=== PATIENT | male | born 1960 | race Caucasian/White ===

== ENCOUNTER 2018-01-03 14:25 | Inpatient (IN) | payer MEDICARE ==
[~2018-01-03] VITALS: Ht 182.9 cm; Wt 91.0 kg
[2018-01-03] VITALS (10 sets, daily range): BP systolic 99–155; BP diastolic 57–91; PULSE 59–89; RESP 11–17; TEMP 95–95.4; O2SAT 96–100
[2018-01-03] MEDS ORDERED: SODIUM CHLORIDE 0.9% FLUSH 10 ML FLUSH IVF PRN (14:45)
--- NOTE | 2018-01-03 14:59 | PD ---
HPI Chief Complaint: Altered Mental Status Time Seen by Provider: 14:45 Travel History International Travel<30 days: No Contact w/Intl Traveler<30days: No Traveled to known affect area: No History of Present Illness HPI 57yo M with PMH of cirrhosis was brought in by EVAC for altered mental status since yesterday. As per [facility]AC, pt's family called and said he has been confused since yesterday. Pt was refusing to come so he was Young Act. Pt is moving all extremities. Pt states his name but says no to everything else. Said he has left shoulder pain but cannot get further history from him. Denies everything. PFSH Past Medical History Medical History: Unable to Obtain Tetanus Vaccination: Unknown Past Surgical History Surgical History: Unable to Obtain Social History Alcohol Use: Yes (unknown ) Tobacco Use: No Substance Use: No (unknown ) Allergies-Medications (Allergen,Severity, Reaction): Coded Allergies: acetaminophen (Verified Allergy, Unknown, rash, 01/03/18) hydrocodone (Verified Allergy, Unknown, rash, 01/03/18) Reported Meds & Prescriptions Reported Meds & Active Scripts Active Active Prescriptions or Reported Medications Unobtainable Review of Systems ROS Limitations: Clinical Condition Physical Exam Narrative GENERAL: 57yo M yelling. SKIN: Jaundice. HEAD: Atraumatic. Normocephalic. EYES: Pupils equal and round. +scleral icterus. ENT: No nasal bleeding or discharge. Mucous membranes pink and moist. NECK: Trachea midline. No JVD. CARDIOVASCULAR: Regular rate and rhythm. No murmur appreciated. RESPIRATORY: No accessory muscle use. Clear to auscultation. Breath sounds equal bilaterally. GASTROINTESTINAL: Abdomen soft, non-tender, nondistended. MUSCULOSKELETAL: No obvious deformities. No clubbing. No cyanosis. No edema. NEUROLOGICAL: AAOx1. Moving extremities but not to command. Unable to do further exam. Data Data Last Documented VS Vital Signs Date Time Temp Pulse Resp B/P (MAP) Pulse Ox O2 Delivery O2 Flow Rate FiO2 01/03/18 16:49 95.4 89 155/91 (112) 01/03/18 14:46 99 Room Air 01/03/18 14:42 14 Orders Orders Restraints Non-Violent ALMA ROSA.Q3H (01/03/18 14:37) Electrocardiogram (01/03/18 14:37) Ammonia (01/03/18 14:37) Complete Blood Count With Diff (01/03/18 14:37) Comprehensive Metabolic Panel (01/03/18 14:37) Creatine Kinase (Cpk) (01/03/18 14:37) Prothrombin Time / Inr (Pt) (01/03/18 14:37) Act Partial Throm Time (Ptt) (01/03/18 14:37) Troponin I (01/03/18 14:37) Thyroid Stimulating Hormone (01/03/18 14:37) Urinalysis - C+S If Indicated (01/03/18 14:37) Lactic Acid Sepsis Protocol (01/03/18 14:37) Blood Culture (01/03/18 14:37) Chest, Single Ap (01/03/18 14:37) Ct Brain W/O Iv Contrast(Rout) (01/03/18 14:37) Blood Glucose (01/03/18 14:37) Ecg Monitoring (01/03/18 14:37) Iv Access Insert/Monitor (01/03/18 14:37) Cath For Specimen (01/03/18 14:37) Oximetry (01/03/18 14:37) Sodium Chlor 0.9% 1000 Ml Inj (Ns 1000 M (01/03/18 14:37) Drug Screen, Random Urine (01/03/18 14:37) Alcohol (Ethanol) (01/03/18 14:37) Tylenol (Acetaminophen) (01/03/18 14:37) Salicylates (Aspirin) (01/03/18 14:37) B-Type Natriuretic Peptide (01/03/18 14:37) Magnesium (Mg) (01/03/18 14:37) Sodium Chloride 0.9% Flush (Ns Flush) (01/03/18 14:45) Shoulder, Limited(2vws) (01/03/18 ) Sodium Chlor 0.9% 1000 Ml Inj (Ns 1000 M (01/03/18 16:30) Ceftriaxone Inj (Rocephin Inj) (01/03/18 17:15) Vancomycin Inj (Vancomycin Inj) (01/03/18 17:15) Ampicillin Inj (Ampicillin Inj) (01/03/18 17:15) Potassium Chlor 20 Meq Premix (Kcl 20 Me (01/03/18 17:30) Propofol 500 Mg/50 Ml Inj (Diprivan 500 (01/03/18 17:45) Ammonia (01/03/18 17:42) Admit Order (Ed Use Only) (01/03/18 18:18) Labs Laboratory Tests Test 01/03/18 15:11 01/03/18 15:45 Prothrombin Time 29.3 SEC Prothromb Time International Ratio 2.9 RATIO Activated Partial Thromboplast Time 61.4 SEC Blood Urea Nitrogen 44 MG/DL Creatinine 2.19 MG/DL Random Glucose 81 MG/DL Total Protein 6.9 GM/DL Albumin 1.8 GM/DL Calcium Level 8.4 MG/DL Magnesium Level 2.1 MG/DL Alkaline Phosphatase 94 U/L Aspartate Amino Transf (AST/SGOT) 122 U/L Alanine Aminotransferase (ALT/SGPT) 119 U/L Total Bilirubin 30.1 MG/DL Sodium Level 132 MEQ/L Potassium Level 2.7 MEQ/L Chloride Level 96 MEQ/L Carbon Dioxide Level 23.5 MEQ/L Anion Gap 13 MEQ/L Estimat Glomerular Filtration Rate 31 ML/MIN Lactic Acid Level 5.0 mmol/L Ammonia LESS THAN 10 MCMOL/L Total Creatine Kinase 139 U/L Troponin I LESS THAN 0.02 NG/ML B-Type Natriuretic Peptide 30 PG/ML Thyroid Stimulating Hormone 3rd Gen 0.530 uIU/ML Salicylates Level LESS THAN 1.7 MG/DL Acetaminophen Level LESS THAN 2.0 MCG/ML Ethyl Alcohol Level LESS THAN 3 MG/DL Urine Color DARK-BROWN Urine Turbidity HAZY Urine pH 6.0 Urine Specific [place] 1.013 Urine Protein NEG mg/dL Urine Glucose (UA) NEG mg/dL Urine Ketones NEG mg/dL Urine Occult Blood NEG Urine Nitrite NEG Urine Bilirubin LARGE Urine Urobilinogen 4.0 MG/DL Urine Leukocyte Esterase NEG Urine Squamous Epithelial Cells <1 /hpf Urine Amorphous Sediment RARE Urine Bacteria OCC /hpf Microscopic Urinalysis Comment CATH-CULT NOT IND Urine Random Creatinine 75.5 MG/DL Urine Random Sodium 9 MEQ/L Urine Opiates Screen NEG Urine Barbiturates Screen NEG Urine Amphetamines Screen NEG Urine Benzodiazepines Screen POS Urine Cocaine Screen NEG Urine Cannabinoids Screen POS MDM Medical Decision Making Medical Screen Exam Complete: Yes Emergency Medical Condition: Yes Interpretation(s) EKG: NSR 69bpm. PVC. Differential Diagnosis Hepatic encephalopathy vs. electrolyte abnormality Narrative Course 57yo M with cirrhosis here with altered mental status. Pt is confused but no signs of trauma and moving all extremities. Labs reviewed, CBC is still pending because it had to be recollected. Hypokalemic at 2.7, replaced with 40mEq KCl. BUN/creatinine elevated at 44/2.19. Does not know baseline. Elevated liver enzymes likely baseline. Troponin negative. Ammonia less than 10. TSH normal. Lactic acid elevated at 5.0, pt given 2 L NS IVF, will give another liter. Pt is hypothermic at 95.4F rectal. Consent for lumbar puncture obtained from brother who is now here. Said patient was recently admitted to [facility] and had elevated ammonia. However, ammonia is negative here, will order repeat ammonia level. Attempted lumbar puncture with procedural sedation but was unsuccessful. Pt cover with antibiotics for meningitis empirically since pt has altered mental status, hypothermic and with elevated lactic acid. CXR negative. CT brain negative. Xray left shoulder showed degenerative changes. No acute abnormality. Discussed with Dr. Suarez and accepted to his service. Critical Care Narrative Aggregate critical care time was 50 minutes. Time to perform other separately billable procedures was not included in the critical care time. My time did not include minutes spent treating any other patients simultaneously or on activities that did not directly contribute to the patient's treatment. The services I provided to this patient were to treat and/or prevent clinically significant deterioration that could result in: cardiovascular collapse or . I provided critical care services requiring my management, as noted below: Chart data review, documentation time, medication orders and management, vital sign assessments/reviewing monitor data, ordering and reviewing lab tests, ordering and interpreting/reviewing x- rays and diagnostic studies, care of the patient and discussion of the patient with the admitting physicians. Procedures Procedure Narrative After the risks and benefits were discussed the following procedure was performed: MODERATE SEDATION: The patient was placed on a laborer orchard and pulse oximetry. An ambu bag and suction was immediately available at bedside. The patient was monitored by the nurse. Oxygen saturation , heart rate and blood pressure were monitored. Procedural sedation was acheived using 160mg of propofol. The patient was observed until awake and alert. Procedural Sedation time in attendance was 25 minutes. Diagnosis Primary Impression: Altered mental status Qualified Codes: R41.82 - Altered mental status, unspecified Admitting Information Admitting Physician Requests: Admit Scripts Unable to Obtain Active Prescriptions or Reported Meds Deysi Edouard DO Jan 03, 2018 14:59
--- NOTE | 2018-01-03 15:20 | RADRPT ---
EXAM DATE/TIME: 01/03/2018 14:55 [facility] COMPARISON: No previous studies available for comparison. INDICATIONS : Syncope. MEDICAL HISTORY : none known SURGICAL HISTORY : none known ENCOUNTER: Initial ACUITY: 1 day PAIN SCORE: 10/10 LOCATION: Bilateral chest FINDINGS: A single view of the chest demonstrates the lungs to be symmetrically aerated without evidence of mas s, infiltrate or effusion. The cardiomediastinal contours are unremarkable. Osseous structures are intact. CONCLUSION: No acute disease. Ricky Gómez Jr., MD on January 03, 2018 at 15:18 Board Certified Radiologist. This report was verified electronically.
--- NOTE | 2018-01-03 15:20 | RADRPT ---
EXAM DATE/TIME: 01/03/2018 15:00 [facility] COMPARISON: No previous studies available for comparison. INDICATIONS : Left shoulder pain., no known history MEDICAL HISTORY : none known SURGICAL HISTORY : none known ENCOUNTER: Initial ACUITY: 1 day PAIN SCORE: Non-responsive. LOCATION: Left shoulder FINDINGS: Two view examination of the left shoulder demonstrates no evidence of fracture or dislocation. The g lenohumeral and acromioclavicular joints are maintained. Mild osteophyte lipping involving the inferi or margin of the distal clavicle without significant subacromial space narrowing. Bony mineralizatio n is normal. CONCLUSION: Degenerative changes of the a.c. joint. No acute abnormality. Ricky Gómez Jr., MD on January 03, 2018 at 15:18 Board Certified Radiologist. This report was verified electronically.
--- NOTE | 2018-01-03 15:25 | RADRPT ---
EXAM DATE/TIME: 01/03/2018 15:17 [facility] COMPARISON: No previous studies available for comparison. INDICATIONS : Altered mental status RADIATION DOSE: 56.35 CTDIvol (mGy) MEDICAL HISTORY : None SURGICAL HISTORY : None. ENCOUNTER: Initial ACUITY: 1 day PAIN SCALE: Non-responsive LOCATION: cranial TECHNIQUE: Multiple contiguous axial images were obtained of the head. Using automated exposure control and adj ustment of the mA and/or kV according to patient size, radiation dose was kept as low as reasonably a chievable to obtain optimal diagnostic quality images. DICOM format image data is available electro nically for review and comparison. FINDINGS: CEREBRUM: The ventricles are normal for age. No evidence of midline shift, mass lesion, hemorrhage or acute in farction. No extra-axial fluid collections are seen. POSTERIOR FOSSA: The cerebellum and brainstem are intact. The 4th ventricle is midline. The cerebellopontine angle i s unremarkable. EXTRACRANIAL: The visualized portion of the orbits is intact. SKULL: The calvaria is intact. No evidence of skull fracture. CONCLUSION: Negative for an acute process. Sid Chilel MD FACR on January 03, 2018 at 15:24 Board Certified Radiologist. This report was verified electronically.
[2018-01-03] MEDS: SODIUM CHLOR 0.9% 1000 ML INJ 1,000 ML IV SCH ×3 (15:33→19:43)
[2018-01-03 16:30] LABS: AMORPHOUS SEDIMENT, URINE RARE; BACTERIA, URINE OCC /hpf; BILIRUBIN, URINE LARGE (NEG); BLOOD, URINE NEG (NEG); GLUCOSE,URINE NEG (NEG); KETONE, URINE NEG (NEG); NITRITE,URINE NEG (NEG); SQUAMOUS EPITHELIAL CELL URINE <1 /hpf (0-5); URINE LEUKOCYTE ESTERASE NEG (NEG)
[2018-01-03] MEDS ORDERED: SODIUM CHLOR 0.9% 1000 ML INJ 1,000 ML IV ONE (16:30)
[2018-01-03 16:31] LABS: URINE COLOR DARK-BROWN (YELLW/STRAW)
[2018-01-03 16:39] LABS: INTERNATIONAL NORMALIZED RATIO 2.9 RATIO; PROTHROMBIN TIME - PATIENT 29.3 SEC (9.8-11.6)
[2018-01-03 16:49] LABS: ALBUMIN 1.8 GM/DL (3.4-5.0); ALKALINE PHOSPHATASE 94 U/L (45-117); ALT (GPT) 119 U/L (12-78); AST (GOT) 122 U/L (15-37); BICARBONATE 23.5 MEQ/L (21.0-32.0); BLOOD UREA NITROGEN 44 MG/DL (7-18); CALCIUM 8.4 MG/DL (8.5-10.1); CHLORIDE 96 MEQ/L (98-107); CREATININE 2.19 MG/DL (0.60-1.30); GLOMERULAR FILTRATION RATE 31 ML/MIN (>89); GLUCOSE,RANDOM 81 MG/DL (74-106); MAGNESIUM 2.1 MG/DL (1.5-2.5); SODIUM (NA) 132 MEQ/L (136-145); TOTAL BILIRUBIN ADULT 30.1 MG/DL (0.2-1.0); TROPONIN I LESS THAN 0.02 NG/ML (0.02-0.05)
[2018-01-03] MEDS ORDERED: AMPICILLIN INJ 2,000 MG in SODIUM CHLORIDE 0.9% INJ 100 ML IV ONE (17:15)
[2018-01-03] MEDS ORDERED: cefTRIAXone INJ 2,000 MG in SODIUM CHLORIDE 0.9% INJ 100 ML IV ONE (17:15)
[2018-01-03] MEDS ORDERED: VANCOMYCIN INJ 1,050 MG in SODIUM CHLOR 0.9% 250 ML INJ 250 ML IV ONE (17:15)
[2018-01-03 17:25] LABS: ACETAMINOPHEN LESS THAN 2.0 MCG/ML (10.0-30.0); TOTAL PROTEIN 6.9 GM/DL (6.4-8.2)
[2018-01-03] MEDS: POTASSIUM CHLOR 20 MEQ PREMIX 100 ML IV SCH ×2 (17:36→19:30)
[2018-01-03] MEDS ORDERED: PROPOFOL 500 MG/50 ML BTL IV ONE (17:45)
[2018-01-03] MEDS ORDERED: RESP: ALBUTEROL 2.5 MG/3 ML NEB (PRN) INH (18:45)
[2018-01-03] MEDS ORDERED: SENNOSIDES 8.6 MG TAB PO PRN (18:45)
[2018-01-03] MEDS ORDERED: ONDANSETRON HCL 4 MG/2 ML VIAL IV PUSH PRN (18:45)
[2018-01-03] MEDS ORDERED: CHLORHEXIDINE GLUCONATE 2 % 1 PACK (2 CLOTHS) TOP PRN (18:45)
[2018-01-03] MEDS ORDERED: DEXMEDETOMIDINE INJ 200 MCG in SODIUM CHLORIDE 0.9% INJ 50 ML IV PRN (18:45)
[2018-01-03] MEDS ORDERED: LACTULOSE SYRUP 20 GM/30 ML CUP PO PRN (18:45)
[2018-01-03] MEDS ORDERED: SODIUM CHLORIDE 0.9% FLUSH 10 ML FLUSH IV FLUSH PRN (18:45)
[2018-01-03] MEDS ORDERED: MAGNESIUM HYDROXIDE SUSP 30 ML CUP PO PRN (18:45)
[2018-01-03] MEDS ORDERED: MISCELLANEOUS NURSING INFORMATION XX SCH (18:45)
[2018-01-03] MEDS ORDERED: BISACODYL 10 MG SUPP RECTAL PRN (18:45)
--- NOTE | 2018-01-03 18:53 | HHI.HP ---
[facility] Service Critical Care Medicine Primary Care Physician No Primary Care Physician Admission Diagnosis AMS, sepsis Diagnosis: (1) Elevated liver function tests Diagnosis: Principal (2) Total bilirubin, elevated Diagnosis: Principal (3) Hyponatremia Diagnosis: Principal (4) Hypokalemia Diagnosis: Principal (5) Lactic acidosis Diagnosis: Principal (6) Coagulopathy Diagnosis: Principal (7) Hypoalbuminemia due to protein-calorie malnutrition Diagnosis: Principal (8) Liver failure Diagnosis: Principal (9) Altered mental status Diagnosis: Principal (10) Hyperammonemia Diagnosis: Principal Chief Complaint: Altered mental status/Young act Travel History International Travel<30 Days: No Contact w/Intl Traveler <30 Da: No Traveled to Known Affected Are: No History of Present Illness This is a 57-year-old male. Date of admission 01/03/2018. Past medical history includes end-stage liver disease secondary to alcohol. Patient ceased drinking tobacco December 20. Patient ceased smoking tobacco . He drank half a gallon of whiskey daily for an unspecified amount of time according to brother Gerardo and sister Lea. Patient was recently to [facility] with a total bilirubin 29 and elevated ammonia 170. At that time a CAT scan of the abdomen pelvis revealed ascites and cholelithiasis without cholecystitis. Patient was recently discharged from [facility] Today, patient was brought in under Young act due to altered mental status and refusing to be transferred to the hospital. At this facility, patient noted to have lactic acidosis 5. Potassium 2.7, total bilirubin of 30 elevated transaminases. INR is currently 2.9. CBC is currently pending. X-ray of chest and shoulder revealed no acute findings. CT brain revealed no acute intracranial findings. Patient received 40 mEq potassium chloride for potassium 2.7. Patient received ampicillin, vancomycin and ceftriaxone for possible meningitis. A lumbar puncture was attempted by the ED physician unsuccessfully. We are asked to admit the patient. There is no repeat lactate was 5.2. Repeat ammonia level after initial is less than 10 is currently 81. Started on lactulose 30 cc 4 times daily and rifaximin 550 mg p.o. 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 Father from lung cancer Social History 1/2 gallon of whiskey daily quit 12/20. One pack per day tobacco unknown duration per family. Quit 12/20. History of THC use Physical Exam Vital Signs Vital Signs Date Time Temp Pulse Resp B/P (MAP) Pulse Ox O2 Delivery O2 Flow Rate FiO2 01/03/18 18:24 96 01/03/18 18:24 96 3.00 01/03/18 16:49 95.4 89 155/91 (112) 01/03/18 14:46 99 Room Air 01/03/18 14:42 69 14 133/86 (102) Physical Exam GENERAL: 57-year-old disheveled male yelling in bed jaundice and quite encephalopathic SKIN: Warm and dry. Jaundice HEAD: Atraumatic. Normocephalic. EYES: Pupils equal and round. + scleral icterus. No injection or drainage. ENT: No nasal bleeding or discharge. Mucous membranes pink and moist. Edentulous NECK: Trachea midline. No JVD. CARDIOVASCULAR: Regular rate and rhythm. S1, S2. No S4 without murmur RESPIRATORY: Diminished breath sounds throughout. Positive end expiratory wheeze. No rales or rhonchi. GASTROINTESTINAL: Abdomen mildly distended. Hypoactive bowel sounds appreciated. Positive past megaly. MUSCULOSKELETAL: Extremities without clubbing, cyanosis, or edema. No obvious deformities. NEUROLOGICAL: Awake yelling in bed. Motor grossly within normal limits. Five out of 5 muscle strength in the arms and legs. Garbled speech. Positive asterixis Laboratory Laboratory Tests Test 01/03/18 15:11 01/03/18 15:45 Prothrombin Time 29.3 Prothromb Time International Ratio 2.9 Activated Partial Thromboplast Time 61.4 Blood Urea Nitrogen 44 Creatinine 2.19 Random Glucose 81 Total Protein 6.9 Albumin 1.8 Calcium Level 8.4 Magnesium Level 2.1 Alkaline Phosphatase 94 Aspartate Amino Transf (AST/SGOT) 122 Alanine Aminotransferase (ALT/SGPT) 119 Total Bilirubin 30.1 Sodium Level 132 Potassium Level 2.7 Chloride Level 96 Carbon Dioxide Level 23.5 Anion Gap 13 Estimat Glomerular Filtration Rate 31 Lactic Acid Level 5.0 Ammonia LESS THAN 10 Total Creatine Kinase 139 Troponin I LESS THAN 0.02 B-Type Natriuretic Peptide 30 Thyroid Stimulating Hormone 3rd Gen 0.530 Acetaminophen Level LESS THAN 2.0 Ethyl Alcohol Level LESS THAN 3 Urine Color DARK-BROWN Urine Turbidity HAZY Urine pH 6.0 Urine Specific [place] 1.013 Urine Protein NEG Urine Glucose (UA) NEG Urine Ketones NEG Urine Occult Blood NEG Urine Nitrite NEG Urine Bilirubin LARGE Urine Urobilinogen 4.0 Urine Leukocyte Esterase NEG Urine Squamous Epithelial Cells <1 Urine Amorphous Sediment RARE Urine Bacteria OCC Microscopic Urinalysis Comment CATH-CULT NOT IND Date/Time Source Procedure Growth Status 01/03/18 15:11 Blood Peripheral Aerobic Blood Culture Pending Received 01/03/18 15:11 Blood Peripheral Anaerobic Blood Culture Pending Received Result Diagram: 01/03/18 1511 Imaging Last Impressions Head CT 01/03/18 1437 Signed Impressions: Service Date/Time: Wednesday, January 03, 2018 15:17 - CONCLUSION: Negative for an acute process. Sid Chilel MD FACR Chest X-Ray 01/03/18 1437 Signed Impressions: Service Date/Time: Wednesday, January 03, 2018 14:55 - CONCLUSION: No acute disease. Ricky Gómez Jr., MD Shoulder X-Ray 01/03/18 0000 Signed Impressions: Service Date/Time: Wednesday, January 03, 2018 15:00 - CONCLUSION: Degenerative changes of the a.c. joint. No acute abnormality. Ricky Gómez Jr., MD Septic Shock Reassessment Septic shock perfusion: reassessment completed Caprini VTE Risk Assessment Caprini VTE Risk Assessment: Mod/High Risk (score >= 2) VTE Pharm Contraindication: High risk for bleeding Caprini Risk Assessment Model Point Value = 1 Point Value = 2 Point Value = 3 Point Value = 5 Age 41-60 Minor surgery BMI > 25 kg/m2 Swollen legs Varicose veins or History of unexplained or recurrent spontaneous Oral contraceptives or hormone replacement Sepsis (< 1 month) Serious lung disease, including pneumonia (< 1 month) Abnormal pulmonary function Acute myocardial infarction Congestive heart failure (< 1 month) History of inflammatory bowel disease Medical patient at bed rest Age 61-74 Arthroscopic surgery Major open surgery (> 45 min) Laparoscopic surgery (> 45 min) Malignancy Confined to bed (> 72 hours) Immobilizing plaster cast Central venous access Age >= 75 History of VTE Family history of VTE Factor V Leiden Prothrombin [id number] Lupus anticoagulant Anticardiolipin antibodies Elevated serum homocysteine Heparin-induced thrombocytopenia Other congenital or acquired thrombophilia Stroke (< 1 month) Elective arthroplasty Hip, pelvis, or leg fracture Acute spinal cord injury (< 1 month) Prophylaxis Regimen Total Risk Factor Score Risk Level Prophylaxis Regimen 0-1 Low Early ambulation 2 Moderate Order ONE of the following: *Sequential Compression Device (SCD) *Heparin 5000 units SQ BID 3-4 Higher Order ONE of the following medications: *Heparin 5000 units SQ TID *Enoxaparin/Lovenox 40 mg SQ daily (WT < 150 kg, CrCl > 30 mL/min) *Enoxaparin/Lovenox 30 mg SQ daily (WT < 150 kg, CrCl > 10-29 mL/min) *Enoxaparin/Lovenox 30 mg SQ BID (WT < 150 kg, CrCl > 30 mL/min) AND/OR *Sequential Compression Device (SCD) 5 or more Highest Order ONE of the following medications: *Heparin 5000 units SQ TID (Preferred with Epidurals) *Enoxaparin/Lovenox 40 mg SQ daily (WT < 150 kg, CrCl > 30 mL/min) *Enoxaparin/Lovenox 30 mg SQ daily (WT < 150 kg, CrCl > 10-29 mL/min) *Enoxaparin/Lovenox 30 mg SQ BID (WT < 150 kg, CrCl > 30 mL/min) AND *Sequential Compression Device (SCD) Assessment and Plan Assessment and Plan Neuro/Psych: Acute encephalopathy History of EtOH use/abuse THC use Noted allergy to acetaminophen/elevated transaminases Morphine sulfate if indicated for pain management We will initiate dexmedetomidine drip to maintain an RASS of 0 CT brain on admission revealed no acute intracranial findings CV: Lactic acidosis Currently on normal saline at 84 cc an hour Not requiring vasopressors and/or antihypertensives Serial lactates until cleared. Will receive fresh frozen plasma and IV fluids overnight. Resp: Tobaccoism Nasal cannula to maintain saturations greater than or equal to 92% Incentive spirometry while awake Chest x-ray on admission revealed no acute cardiopulmonary findings GI: Elevated total bilirubin Elevated transaminases Hypoalbuminemia Cholelithiasis History of esophageal varices? Hyperammonia Total bilirubin was 30. Was 29 last week according to brother. Ammonia level is less than 10 but repeat was 81. Started on lactulose 30 cc 4 times daily and rifaximin 550 mg p[address]o. twice daily CT abdomen/pelvis pending. We will treat for SBP see below : Meadows catheter if indicated for accurate I's and O's in a critically ill patient. Endo: Sliding scale insulin if indicated to maintain euglycemia/low regimen with Novulin R TSH 0.53 Renal: Acute kidney injury? Creatinine 2.1. Unknown baseline. Check CT abdomen/pelvis rule out hydronephrosis. Urine electrolytes and eosinophils pending Recheck BMP in a.m. Heme: Coagulopathy likely secondary to end-stage liver disease CBC pending. ID: Recent urinary tract infection Vancomycin, cefepime and metronidazole initiated today. UA here is negative Blood cultures 2, UA and sputum all ordered along with influenza a and B FEN: Hyponatremia Hypopotassemia Received 40 mEq KCl in ED. Magnesium 2.1 Currently on normal saline at 84 cc now MSK: PT evaluate and treat Access Utilized peripheral IV. Central line if indicated Prophylaxis GI -pantoprazole DVT -SCD/pharmacological prophylaxis is contraindicated with INR greater than 2.0 Critical Care: The total critical care time was 35 minutes. Time to perform other separately billable procedures was not included in the critical care time. Code Status Full code Discussed Condition With Patient has a daughter in [place]. No . Discussed with brother Mono sister Luz. Care plan discussed and all questions answered. Problem Qualifiers (1) Liver failure: Qualified Codes: K72.10 - Chronic hepatic failure without coma (2) Altered mental status: Qualified Codes: R41.82 - Altered mental status, unspecified Samy Suarez MD Jan 03, 2018 18:53
[2018-01-03] MEDS ORDERED: Vancomycin Consult Pharmacy 1 EA OTHER SCH (19:00)
[2018-01-03] MEDS ORDERED: PHYTONADIONE INJ 10 MG in DEXTROSE 5% IN WATER INJ 50 ML IV ONE ×2 (19:00)
[2018-01-03] MEDS: DEXMEDETOMIDINE INJ 200 MCG in SODIUM CHLORIDE 0.9% INJ 50 ML IV PRN (19:08)
[2018-01-03] MEDS ORDERED: GLUCAGON 1 MG/ML VIAL OTHER PRN (19:15)
[2018-01-03] MEDS ORDERED: DEXTROSE 50% IN WATER 50 ML VIAL(D50) IV PUSH PRN (19:15)
[2018-01-03] MEDS ORDERED: MORPHINE SULFATE 2 MG/ML INJ IV PUSH PRN (19:30)
[2018-01-03] MEDS: RESP: ALBUTEROL 2.5 MG/IPRATROPIUM 0.5 MG NEB (SCH) INH (19:33)
[2018-01-03 19:39] LABS: CREATININE, RANDOM URINE 75.5 MG/DL
[2018-01-03 19:47] LABS: HEMATOCRIT 42.3 % (39.0-51.0); HEMOGLOBIN 14.6 GM/DL (13.0-17.0); MEAN CELL VOLUME 105.3 FL (80.0-100.0); MEAN CORPUSCULAR HEMOGLOBIN 36.3 PG (27.0-34.0); MEAN CORPUSCULAR HGB CONC 34.5 % (32.0-36.0); PLATELET COUNT 47 TH/MM3 (150-450); RED BLOOD COUNT 4.02 MIL/MM3 (4.50-5.90); RED CELL DISTRIBUTION WIDTH 15.7 % (11.6-17.2); WHITE BLOOD COUNT 15.4 TH/MM3 (4.0-11.0)
[2018-01-03] MEDS: metroNIDAZOLE 500 MG INJ 100 ML IV SCH (20:00)
[2018-01-03] MEDS: LORazepam 2 MG/ML VIAL IV PUSH PRN (20:24)
[2018-01-03] MEDS: LACTULOSE SYRUP 20 GM/30 ML CUP PO SCH (21:00)
[2018-01-03] MEDS: RIFAXIMIN 550 MG TAB PO SCH (21:00)
[2018-01-03] MEDS: SODIUM CHLORIDE 0.9% FLUSH 10 ML FLUSH IV FLUSH SCH (21:00)
[2018-01-03] MEDS: DOCUSATE SODIUM 50 MG/SENNA 8.6 MG TAB PO SCH (21:00)
[2018-01-03 21:03] LABS: BANDS 20 % (0-6); LYMPHOCYTES 1 % (9-44); MONOCYTES 1 % (0-8); NEUTROPHIL # MANUAL DIFF 15.1 TH/MM3 (1.8-7.7); POLYS (SEG NEUTROPHILS) 78 % (16-70)
--- NOTE | 2018-01-03 21:09 | RADRPT ---
EXAM DATE/TIME: 01/03/2018 20:22 [facility] COMPARISON: No previous studies available for comparison. INDICATIONS : Cirrhosis,jaundce. ORAL CONTRAST: No oral contrast ingested. RADIATION DOSE: 12.75 CTDIvol (mGy) MEDICAL HISTORY : Non-responsive. SURGICAL HISTORY : Non-responsive. ENCOUNTER: Initial ACUITY: 1 day PAIN SCALE: Non-responsive LOCATION: Abdomen TECHNIQUE: Volumetric scanning of the abdomen and pelvis was performed. Using automated exposure control and ad justment of the mA and/or kV according to patient size, radiation dose was kept as low as reasonably achievable to obtain optimal diagnostic quality images. DICOM format image data is available electro nically for review and comparison. FINDINGS: Examination is performed with both patient's arms in the [id number], causing some degradation of t he images. In addition, there appears to be diffuse soft tissue swelling about the left forearm, onl y partially included in the [id number]. LOWER LUNGS: The visualized lower lungs are clear. LIVER: Focal ascites about the lateral superior margin of the liver measuring up to 2.6 cm in thickness. No tracking into the right paracolic gutter or into the pelvis. Homogeneous density without lesion for noncontrast technique. There is no dilation of the intrahepatic biliary tree. The common bile duct is prominent, measuring up to 11 mm in size. No calcifications of the common bile duct. No calcifi ed gallstones; there is moderate distention of the gallbladder.. SPLEEN: Normal size without lesion. PANCREAS: Within normal limits. KIDNEYS: Normal in size and shape. There is no mass, stone, or hydronephrosis. ADRENAL GLANDS: Within normal limits. VASCULAR: There is no aortic aneurysm. BOWEL/MESENTERY: No dilated loops of small or large bowel. There is some mild induration of the fat of the right uppe r quadrant. ABDOMINAL WALL: Within normal limits. RETROPERITONEUM: There is no lymphadenopathy. BLADDER: No wall thickening or mass. REPRODUCTIVE: Within normal limits. INGUINAL: There is no lymphadenopathy or hernia. MUSCULOSKELETAL: Unilateral pars defect on the right at L5 with associated hypertrophic changes. CONCLUSION: 1. Localized ascites about the liver without tracking into the abdomen or pelvis. 2. Dilation of the common bile duct up to 11 mm without calcified gallstones or calcifications in the common bile duct. The gallbladder appears mildly distended. 3. Mild induration of the mesenteric fat in the right upper quadrant. Ricky J. Yuschok, MD on January 03, 2018 at 21:03 Board Certified Radiologist. This report was verified electronically.
[2018-01-03] MEDS: CEFEPIME INJ 2,000 MG in SODIUM CHLORIDE 0.9% INJ 100 ML IV SCH (23:00)
[2018-01-04] VITALS (28 sets, daily range): BP systolic 79–111; BP diastolic 51–70; PULSE 47–77; RESP 11–28; TEMP 96–99.8; O2SAT 94–100
[2018-01-04] MEDS: DEXMEDETOMIDINE INJ 200 MCG in SODIUM CHLORIDE 0.9% INJ 50 ML IV PRN ×3 (02:29→14:17)
[2018-01-04] MEDS: RESP: ALBUTEROL 2.5 MG/IPRATROPIUM 0.5 MG NEB (SCH) INH ×4 (03:18→21:11)
[2018-01-04 03:35] LABS: AUTOMATED NEUTROPHIL # 10.7 TH/MM3 (1.8-7.7); BASOPHIL % 0.1 % (0.0-2.0); EOSINOPHIL # 0.1 TH/MM3 (0-0.4); EOSINOPHIL % 0.8 % (0.0-4.0); HEMATOCRIT 36.7 % (39.0-51.0); HEMOGLOBIN 12.9 GM/DL (13.0-17.0); LYMPH % 4.2 % (9.0-44.0); LYMPHOCYTE # 0.5 TH/MM3 (1.0-4.8); MEAN CELL VOLUME 104.4 FL (80.0-100.0); MEAN CORPUSCULAR HEMOGLOBIN 36.6 PG (27.0-34.0); MEAN CORPUSCULAR HGB CONC 35.1 % (32.0-36.0); MEAN PLATELET VOLUME 11.2 FL (7.0-11.0); MONOCYTE # 1.1 TH/MM3 (0-0.9); NEUT % 85.9 % (16.0-70.0); PLATELET COUNT 45 TH/MM3 (150-450); RED BLOOD COUNT 3.51 MIL/MM3 (4.50-5.90); RED CELL DISTRIBUTION WIDTH 15.9 % (11.6-17.2); WHITE BLOOD COUNT 12.4 TH/MM3 (4.0-11.0)
[2018-01-04 03:59] LABS: INTERNATIONAL NORMALIZED RATIO 2.8 RATIO; PROTHROMBIN TIME - PATIENT 28.2 SEC (9.8-11.6)
[2018-01-04] MEDS: CHLORHEXIDINE GLUCONATE 2 % 1 PACK (2 CLOTHS) TOP SCH (04:00)
[2018-01-04 04:07] LABS: TEARDROP RBCS 1+ (NORMAL)
[2018-01-04 04:11] LABS: ALBUMIN 1.5 GM/DL (3.4-5.0); ALKALINE PHOSPHATASE 73 U/L (45-117); ALT (GPT) 92 U/L (12-78); AST (GOT) 95 U/L (15-37); BICARBONATE 21.6 MEQ/L (21.0-32.0); BLOOD UREA NITROGEN 42 MG/DL (7-18); CALCIUM 7.4 MG/DL (8.5-10.1); CALCIUM-PROTEIN CORRECTED 8.3 MG/DL (8.5-10.1); CHLORIDE 107 MEQ/L (98-107); CREATININE 1.71 MG/DL (0.60-1.30); GLOMERULAR FILTRATION RATE 41 ML/MIN (>89); GLUCOSE,RANDOM 76 MG/DL (74-106); MAGNESIUM 1.7 MG/DL (1.5-2.5); PHOSPHORUS 2.7 MG/DL (2.5-4.9); RANDOM VANCOMYCIN 9.8 COMMENT; SODIUM (NA) 139 MEQ/L (136-145); TOTAL PROTEIN 5.4 GM/DL (6.4-8.2); TROPONIN I LESS THAN 0.02 NG/ML (0.02-0.05)
[2018-01-04 04:22] LABS: TOTAL BILIRUBIN ADULT 24.4 MG/DL (0.2-1.0)
[2018-01-04] MEDS: POTASSIUM CHLOR 10 MEQ PREMIX 100 ML IV SCH ×6 (05:00→10:25)
[2018-01-04] MEDS: MAGNESIUM SULFATE 1 GM PREMIX 100 ML IV SCH ×2 (05:01→08:16)
[2018-01-04] MEDS: metroNIDAZOLE 500 MG INJ 100 ML IV SCH ×4 (05:01→20:38)
[2018-01-04] MEDS: INSULIN NovoLIN REGULAR SUPPLEMENTAL SCALE SQ SCH ×4 (06:00→18:00)
[2018-01-04] MEDS: SODIUM CHLOR 0.9% 1000 ML INJ 1,000 ML IV SCH ×2 (06:55→18:50)
[2018-01-04] MEDS: ARTIFICIAL TEARS OPTH SOLN 15 ML BTL EACH EYE SCH ×3 (08:17→18:00)
[2018-01-04] MEDS: SODIUM CHLORIDE 0.9% FLUSH 10 ML FLUSH IV FLUSH SCH ×2 (08:18→20:38)
[2018-01-04] MEDS: PANTOPRAZOLE SODIUM 40 MG VIAL IV PUSH SCH (08:19)
[2018-01-04] MEDS: DOCUSATE SODIUM 50 MG/SENNA 8.6 MG TAB PO SCH ×2 (08:19→20:38)
[2018-01-04] MEDS: LACTULOSE SYRUP 20 GM/30 ML CUP PO SCH ×4 (08:19→20:38)
[2018-01-04] MEDS: RIFAXIMIN 550 MG TAB PO SCH ×2 (08:20→20:38)
[2018-01-04] MEDS: CEFEPIME INJ 2,000 MG in SODIUM CHLORIDE 0.9% INJ 100 ML IV SCH ×2 (09:24→23:11)
--- NOTE | 2018-01-04 09:35 | HHI.CCPN ---
Subjective Remarks/Hospital Course This is a 57-year-old male. Date of admission 01/03/2018. Past medical history includes end-stage liver disease secondary to alcohol. Patient ceased drinking tobacco December 20. Patient ceased smoking tobacco . He drank half a gallon of whiskey daily for an unspecified amount of time according to brother Gerardo and sister Lea. Patient was recently to [facility] with a total bilirubin 29 and elevated ammonia 170. At that time a CAT scan of the abdomen pelvis revealed ascites and cholelithiasis without cholecystitis. Patient was recently discharged from [facility] Today, patient was brought in under [facility] due to altered mental status and refusing to be transferred to the hospital. At this facility, patient noted to have lactic acidosis 5. Potassium 2.7, total bilirubin of 30 elevated transaminases. INR is currently 2.9. CBC is currently pending. X-ray of chest and shoulder revealed no acute findings. CT brain revealed no acute intracranial findings. Patient received 40 mEq potassium chloride for potassium 2.7. Patient received ampicillin, vancomycin and ceftriaxone for possible meningitis. A lumbar puncture was attempted by the ED physician unsuccessfully. We are asked to admit the patient. There is no repeat lactate was 5.2. Repeat ammonia level after initial is less than 10 is currently 81. Started on lactulose 30 cc 4 times daily and rifaximin 550 mg p.o. twice daily Subjective: 01/04: Afebrile . Patient remains on sedation with Precedex infusion. Coagulopathy labs pending this a.m. status post transfusion. Noted IV infiltration last evening in the ED left arm significantly edematous. Objective Vital Signs Date Time Temp Pulse Resp B/P (MAP) Pulse Ox O2 Delivery O2 Flow Rate FiO2 01/04/18 09:11 96 Nasal Cannula 2.00 01/04/18 06:00 53 01/04/18 06:00 98.7 16 102/58 (73) Intake and Output 01/04/18 01/04/18 01/05/18 08:00 16:00 00:00 Intake Total 1479 ml Output Total 950 ml Balance 529 ml Result Diagram: 01/04/18 0300 01/04/18 0300 Imaging Last Impressions Head CT 01/03/18 1437 Signed Impressions: Service Date/Time: Wednesday, January 03, 2018 15:17 - CONCLUSION: Negative for an acute process. Sid Chilel MD FACR Chest X-Ray 01/03/18 1437 Signed Impressions: Service Date/Time: Wednesday, January 03, 2018 14:55 - CONCLUSION: No acute disease. Ricky Gómez Jr., MD Shoulder X-Ray 01/03/18 0000 Signed Impressions: Service Date/Time: Wednesday, January 03, 2018 15:00 - CONCLUSION: Degenerative changes of the a.c. joint. No acute abnormality. Ricky Gómez Jr., MD Objective Remarks GENERAL: 57-year-old disheveled male yelling in bed jaundice and quite encephalopathic SKIN: Warm and dry. Jaundice HEAD: Atraumatic. Normocephalic. EYES: Pupils equal and round. + scleral icterus. No injection or drainage. ENT: No nasal bleeding or discharge. Mucous membranes pink and moist. Edentulous NECK: Trachea midline. No JVD. CARDIOVASCULAR: Regular rate and rhythm. S1, S2. No S4 without murmur RESPIRATORY: Diminished breath sounds throughout. Positive end expiratory wheeze. No rales or rhonchi. GASTROINTESTINAL: Abdomen mildly distended. Hypoactive bowel sounds appreciated. Positive past megaly. MUSCULOSKELETAL: Extremities without clubbing, cyanosis, or edema. No obvious deformities. NEUROLOGICAL: Awake yelling in bed. Motor grossly within normal limits. Five out of 5 muscle strength in the arms and legs. Garbled speech. Positive asterixis A/P Assessment and Plan Neuro/Psych: Acute encephalopathy History of EtOH use/abuse THC use Noted allergy to acetaminophen/elevated transaminases Morphine sulfate if indicated for pain management We will initiate dexmedetomidine drip to maintain an RASS of 0 CT brain on admission revealed no acute intracranial findings Ammonia level 81- will continue to monitor Consider LP via IR, when coagulopathy is corrected Seizure Precautions CV: Lactic acidosis Currently on normal saline at 84 cc an hour Not requiring vasopressors and/or antihypertensives Serial lactates until cleared. Will receive fresh frozen plasma and IV fluids overnight. Resp: Tobaccoism Nasal cannula to maintain saturations greater than or equal to 92% Incentive spirometry while awake Chest x-ray on admission revealed no acute cardiopulmonary findings GI: Elevated total bilirubin Elevated transaminases Hypoalbuminemia Cholelithiasis History of esophageal varices? Hyperammonia Total bilirubin was 30. Was 29 last week according to brother. Ammonia level is less than 10 but repeat was 81. Started on lactulose 30 cc 4 times daily and rifaximin [address] twice daily CT abdomen/pelvis pending. We will treat for SBP see below : Meadows catheter if indicated for accurate I's and O's in a critically ill patient. Endo: Sliding scale insulin if indicated to maintain euglycemia/low regimen with Novulin R TSH 0.53 Renal: Acute kidney injury? Creatinine 2.1. Unknown baseline. Check CT abdomen/pelvis rule out hydronephrosis. Urine electrolytes and eosinophils pending F/U BMP . Heme: Coagulopathy likely secondary to end-stage liver disease Repeat CBC pending post transfusions ID: Recent urinary tract infection Vancomycin, cefepime and metronidazole initiated today. UA here is negative Blood cultures 2, UA and sputum all ordered along with influenza A and B FEN: Electrolyte derangement Received 40 mEq KCl in ED. Magnesium 2.1 Currently on normal saline at 84 cc now MSK: PT evaluate and treat Access Utilized peripheral IV. Central line if indicated Prophylaxis GI -pantoprazole DVT -SCD/pharmacological prophylaxis is contraindicated with INR greater than 2.0 Critical Care: my billing statement This patient remains critically ill with one or more organ systems which are or may become a threat to life. I have spent in excess of 30 minutes discontinuously in the care and management of this patient. This time is exclusive of procedures, and includes, but is not limited to, evaluation of the patient, review of the medical record, discussions with family, consultants, nursing staff, or respiratory therapy, and documentation in the medical record. Physician Frida Sanchez MD Jan 04, 2018 09:35
[2018-01-04] MEDS: VANCOMYCIN INJ 1,500 MG in SODIUM CHLORID 0.9% 500 ML INJ 500 ML IV SCH (10:27)
--- NOTE | 2018-01-04 10:33 | RADRPT ---
EXAM DATE/TIME: 01/04/2018 09:46 [facility] COMPARISON: No previous studies available for comparison. INDICATIONS : Post NG tube placement. MEDICAL HISTORY : Non-responsive. SURGICAL HISTORY : Non-responsive. ENCOUNTER: Initial ACUITY: 1 day PAIN SCORE: Non-responsive. LOCATION: Bilateral chest FINDINGS: There is a suction type nasoenteric catheter with tip in the distal stomach at the junction of the du odenum. Visualized lower lung sunshine are clear. No significantly dilated loops of bowel in the upper abdomen. CONCLUSION: 1. Suction type nasoenteric catheter tip in the distal stomach near the duodenal bulb. Stiven Mathis MD on January 04, 2018 at 10:30 Board Certified Radiologist. This report was verified electronically.
[2018-01-04 12:34] LABS: AUTOMATED NEUTROPHIL # 6.7 TH/MM3 (1.8-7.7); BASOPHIL % 0.2 % (0.0-2.0); EOSINOPHIL # 0.1 TH/MM3 (0-0.4); EOSINOPHIL % 0.7 % (0.0-4.0); HEMATOCRIT 31.5 % (39.0-51.0); LYMPH % 4.4 % (9.0-44.0); LYMPHOCYTE # 0.4 TH/MM3 (1.0-4.8); MEAN CORPUSCULAR HEMOGLOBIN 36.5 PG (27.0-34.0); MEAN CORPUSCULAR HGB CONC 34.8 % (32.0-36.0); MEAN PLATELET VOLUME 10.7 FL (7.0-11.0); MONO % 11.3 % (0.0-8.0); MONOCYTE # 0.9 TH/MM3 (0-0.9); NEUT % 83.4 % (16.0-70.0); PLATELET COUNT 26 TH/MM3 (150-450); RED CELL DISTRIBUTION WIDTH 16.3 % (11.6-17.2)
[2018-01-04 12:48] LABS: INTERNATIONAL NORMALIZED RATIO 2.1 RATIO; PROTHROMBIN TIME - PATIENT 21.6 SEC (9.8-11.6)
[2018-01-04 13:00] LABS: ALBUMIN 1.6 GM/DL (3.4-5.0); CALCIUM 7.1 MG/DL (8.5-10.1); CALCIUM-PROTEIN CORRECTED 8.2 MG/DL (8.5-10.1); CREATININE 1.67 MG/DL (0.60-1.30); DIRECT BILIRUBIN ADULT 16.8 MG/DL (0.0-0.2); TOTAL BILIRUBIN ADULT 24.5 MG/DL (0.2-1.0); TOTAL PROTEIN 5.1 GM/DL (6.4-8.2)
[2018-01-04] MEDS ORDERED: POTASSIUM CHLORIDE 25 MEQ EFFERVESCENT TAB PO ONE (14:30)
--- NOTE | 2018-01-04 16:57 | MG ---
cc: Samuel Jaquez MD He is asleep. He is on Precedex. CT negative. Liver disease. Vancomycin, metronidazole. Diffuse 4-5 Hz 60 uV slowing is seen which is synchronous and symmetric and likely medication effect. I do not see any focal abnormalities. No epileptiform or seizure activity is seen. Hyperventilation is not performed. Photic stimulation is performed without significant posterior driving. IMPRESSION: 1. Diffuse slowing, likely medication effect or diffuse encephalopathy, moderate. 2. No focal abnormality was noted. No seizure activity was seen. Samuel Jaquez MD DJM/TI , 04:35 PM , 04:56 PM
[2018-01-04] MEDS ORDERED: VANCOMYCIN 1,000 MG/NS 250 ML IV SCH ×2 (18:00)
[2018-01-04] MEDS: LORazepam 2 MG/ML VIAL IV PUSH PRN (23:11)
[2018-01-05] VITALS (17 sets, daily range): BP systolic 100–128; BP diastolic 55–79; PULSE 42–65; RESP 13–20; TEMP 95.7–95.8; O2SAT 94–98
[2018-01-05] MEDS: DEXMEDETOMIDINE INJ 200 MCG in SODIUM CHLORIDE 0.9% INJ 50 ML IV PRN ×5 (01:30→15:53)
[2018-01-05] MEDS: metroNIDAZOLE 500 MG INJ 100 ML IV SCH ×4 (02:00→21:10)
[2018-01-05] MEDS: RESP: ALBUTEROL 2.5 MG/IPRATROPIUM 0.5 MG NEB (SCH) INH ×4 (03:29→21:11)
[2018-01-05] MEDS: CHLORHEXIDINE GLUCONATE 2 % 1 PACK (2 CLOTHS) TOP SCH (04:00)
[2018-01-05 04:24] LABS: AUTOMATED NEUTROPHIL # 5.9 TH/MM3 (1.8-7.7); BASOPHIL % 0.2 % (0.0-2.0); EOSINOPHIL # 0.1 TH/MM3 (0-0.4); EOSINOPHIL % 1.4 % (0.0-4.0); HEMATOCRIT 30.8 % (39.0-51.0); HEMOGLOBIN 10.8 GM/DL (13.0-17.0); LYMPH % 6.5 % (9.0-44.0); LYMPHOCYTE # 0.5 TH/MM3 (1.0-4.8); MEAN CELL VOLUME 104.7 FL (80.0-100.0); MEAN CORPUSCULAR HEMOGLOBIN 36.8 PG (27.0-34.0); MEAN CORPUSCULAR HGB CONC 35.2 % (32.0-36.0); MEAN PLATELET VOLUME 10.3 FL (7.0-11.0); MONO % 10.7 % (0.0-8.0); MONOCYTE # 0.8 TH/MM3 (0-0.9); NEUT % 81.2 % (16.0-70.0); PLATELET COUNT 23 TH/MM3 (150-450); RED BLOOD COUNT 2.94 MIL/MM3 (4.50-5.90); RED CELL DISTRIBUTION WIDTH 16.1 % (11.6-17.2); WHITE BLOOD COUNT 7.3 TH/MM3 (4.0-11.0)
[2018-01-05 04:27] LABS: INTERNATIONAL NORMALIZED RATIO 1.9 RATIO; PROTHROMBIN TIME - PATIENT 19.2 SEC (9.8-11.6)
[2018-01-05 04:54] LABS: CALCIUM 7.4 MG/DL (8.5-10.1); CREATININE 1.66 MG/DL (0.60-1.30); PHOSPHORUS 1.2 MG/DL (2.5-4.9)
[2018-01-05] MEDS ORDERED: POTASSIUM CHLORIDE 20 MEQ PWD PACKET NG ONE (05:15)
[2018-01-05 05:27] LABS: CALCIUM-PROTEIN CORRECTED 8.3 MG/DL (8.5-10.1); TOTAL PROTEIN 5.5 GM/DL (6.4-8.2)
[2018-01-05] MEDS ORDERED: POTASSIUM PHOSPHATE INJ 30 MMOL in SODIUM CHLOR 0.9% 250 ML INJ 250 ML IV ONE (05:30)
[2018-01-05] MEDS: INSULIN NovoLIN REGULAR SUPPLEMENTAL SCALE SQ SCH ×4 (06:00→18:00)
[2018-01-05] MEDS: POTASSIUM CHLOR 10 MEQ PREMIX 100 ML IV SCH ×3 (06:09→08:27)
[2018-01-05] MEDS: VANCOMYCIN INJ 1,500 MG in SODIUM CHLORID 0.9% 500 ML INJ 500 ML IV SCH (06:09)
[2018-01-05 06:11] LABS: BURR CELLS 1+ (NORMAL)
[2018-01-05] MEDS: SODIUM CHLOR 0.9% 1000 ML INJ 1,000 ML IV SCH ×2 (06:45→21:10)
--- NOTE | 2018-01-05 07:50 | EKG ---
Date Performed: 01/03/2018 Time Performed: 15:41:13 PTAGE: 57 years EKG: Sinus rhythm WITH OCCASIONAL VENTRICULAR PREMATURE COMPLEXES NONSPECIFIC ST & T-WAVE ABNORMALITY PROLONGED QT INT ERVAL BORDERLINE ECG NO PREVIOUS TRACING DOCTOR: Walter Heaton Interpretating Date/Time 01/05/2018 07:50:16
--- NOTE | 2018-01-05 07:53 | EKG ---
Date Performed: 01/03/2018 Time Performed: 21:47:58 PTAGE: 57 years EKG: SINUS BRADYCARDIA POSSIBLE INFERIOR MYOCARDIAL INFARCTION , PROBABLY OLD BORDERLINE ECG Sin ce PREVIOUS TRACING , no significant change noted PREVIOUS TRACIN01/03/2018 15.41 DOCTOR: Walter Heaton Interpretating Date/Time 01/05/2018 07:52:42
[2018-01-05] MEDS: SODIUM CHLORIDE 0.9% FLUSH 10 ML FLUSH IV FLUSH SCH ×2 (09:00→21:10)
[2018-01-05] MEDS: ARTIFICIAL TEARS OPTH SOLN 15 ML BTL EACH EYE SCH ×3 (09:00→18:00)
[2018-01-05] MEDS: LACTULOSE SYRUP 20 GM/30 ML CUP PO SCH ×4 (09:20→21:10)
[2018-01-05] MEDS: PANTOPRAZOLE SODIUM 40 MG VIAL IV PUSH SCH (09:21)
[2018-01-05] MEDS: RIFAXIMIN 550 MG TAB PO SCH ×2 (09:21→21:10)
[2018-01-05] MEDS: DOCUSATE SODIUM 50 MG/SENNA 8.6 MG TAB PO SCH ×2 (09:21→21:10)
[2018-01-05] MEDS: LORazepam 2 MG/ML VIAL IV PUSH PRN (09:22)
[2018-01-05] MEDS: CEFEPIME INJ 2,000 MG in SODIUM CHLORIDE 0.9% INJ 100 ML IV SCH ×2 (11:00→23:30)
[2018-01-05 16:17] LABS: HEPATITIS A AB IGM NEGATIVE (NEGATIVE); HEPATITIS B CORE AB IGM NEGATIVE (NEGATIVE)
[2018-01-05] MEDS ORDERED: DEXMEDETOMIDINE INJ 1,000 MCG in SODIUM CHLOR 0.9% 250 ML INJ 250 ML IV PRN (17:15)
[2018-01-05] MEDS: DEXMEDETOMIDINE INJ 1,000 MCG in SODIUM CHLOR 0.9% 250 ML INJ 240 ML IV PRN (17:22)
[2018-01-05] MEDS ORDERED: SOD PHOSPHATE/SOD BIPHOSPHATE (ADULT) ENEMA 133ML RECTAL ONE (20:15)
--- NOTE | 2018-01-05 20:18 | HHI.CCPN ---
Subjective Remarks/Hospital Course This is a 57-year-old male. Date of admission 01/03/2018. Past medical history includes end-stage liver disease secondary to alcohol. Patient ceased drinking tobacco December 20. Patient ceased smoking tobacco . He drank half a gallon of whiskey daily for an unspecified amount of time according to brother Gerardo and sister Lea. Patient was recently to [facility] with a total bilirubin 29 and elevated ammonia 170. At that time a CAT scan of the abdomen pelvis revealed ascites and cholelithiasis without cholecystitis. Patient was recently discharged from [facility] Today, patient was brought in under [facility] due to altered mental status and refusing to be transferred to the hospital. At this facility, patient noted to have lactic acidosis 5. Potassium 2.7, total bilirubin of 30 elevated transaminases. INR is currently 2.9. CBC is currently pending. X-ray of chest and shoulder revealed no acute findings. CT brain revealed no acute intracranial findings. Patient received 40 mEq potassium chloride for potassium 2.7. Patient received ampicillin, vancomycin and ceftriaxone for possible meningitis. A lumbar puncture was attempted by the ED physician unsuccessfully. We are asked to admit the patient. There is no repeat lactate was 5.2. Repeat ammonia level after initial is less than 10 is currently 81. Started on lactulose 30 cc 4 times daily and rifaximin 550 mg p.o. twice daily Subjective: 01/04: Afebrile . Patient remains on sedation with Precedex infusion. Coagulopathy labs pending this a.m. status post transfusion. Noted IV infiltration last evening in the ED left arm significantly edematous. 01/05: Sedation minimized ,patient aggressive/ combative thrashing wildly completely disoriented and not responding to any commands. Ammonia continues to be elevated 144. Objective Vital Signs Date Time Temp Pulse Resp B/P (MAP) Pulse Ox O2 Delivery O2 Flow Rate FiO2 01/05/18 16:00 96.8 49 14 112/68 (83) 94 01/05/18 09:14 Nasal Cannula 2.00 Intake and Output 01/05/18 01/05/18 01/06/18 08:00 16:00 00:00 Intake Total 400 ml 852 ml Output Total 2300 ml 2600 ml Balance -1900 ml -1748 ml Result Diagram: 01/05/18 0406 01/05/18 0406 Imaging Last Impressions Head CT 01/03/18 1437 Signed Impressions: Service Date/Time: Wednesday, January 03, 2018 15:17 - CONCLUSION: Negative for an acute process. Sid Chilel MD FACR Chest X-Ray 01/03/18 1437 Signed Impressions: Service Date/Time: Wednesday, January 03, 2018 14:55 - CONCLUSION: No acute disease. Ricky Gómez Jr., MD Shoulder X-Ray 01/03/18 0000 Signed Impressions: Service Date/Time: Wednesday, January 03, 2018 15:00 - CONCLUSION: Degenerative changes of the a.c. joint. No acute abnormality. Ricky Gómez Jr., MD Objective Remarks GENERAL: 57-year-old disheveled male currently sedated in bed jaundice and quite encephalopathic SKIN: Warm and dry. Jaundice HEAD: Atraumatic. Normocephalic. EYES: Pupils equal and round. + scleral icterus. No injection or drainage. ENT: No nasal bleeding or discharge. Mucous membranes pink and moist. Edentulous NECK: Trachea midline. No JVD. CARDIOVASCULAR: Regular rate and rhythm. S1, S2. No S4 without murmur RESPIRATORY: Diminished breath sounds throughout. Positive end expiratory wheeze. No rales or rhonchi. GASTROINTESTINAL: Abdomen mildly distended. Hypoactive bowel sounds appreciated. Positive past megaly. MUSCULOSKELETAL: Extremities without clubbing, cyanosis, or edema. No obvious deformities. NEUROLOGICAL: when sedation is decreased Awake yelling , thrashing in bed. Motor grossly within normal limits. Five out of 5 muscle strength in the arms and legs. Garbled speech. Positive asterixis A/P Assessment and Plan Neuro/Psych: Acute encephalopathy History of EtOH use/abuse THC use Noted allergy to acetaminophen/elevated transaminases Morphine sulfate if indicated for pain management Continue dexmedetomidine drip to maintain an RASS of 0 CT brain on admission revealed no acute intracranial findings Ammonia level 81- will continue to monitor Consider LP via IR, when coagulopathy is corrected Seizure Precautions CV: Lactic acidosis Currently on normal saline at 84 cc an hour Not requiring vasopressors and/or antihypertensives Serial lactates until cleared. Will receive fresh frozen plasma and IV fluids overnight. 01/05 transfuse 2 u FFP Resp: Tobaccoism Nasal cannula to maintain saturations greater than or equal to 92% Incentive spirometry while awake Chest x-ray on admission revealed no acute cardiopulmonary findings GI: Elevated total bilirubin Elevated transaminases Hypoalbuminemia Cholelithiasis History of esophageal varices? Hyperammonia Total bilirubin was 30. Was 29 last week according to brother. Continue lactulose 30 cc 4 times daily and rifaximin 550 mg p.o. twice daily / CT abdomen/pelvis Localized ascites about the liver without tracking into the abdomen or pelvis. Dilation of the common bile duct up to 11 mm without calcified gallstones or calcifications in the common bile duct. The gallbladder appears mildly distended. Mild induration of the mesenteric fat in the right upper quadrant. We will treat for SBP see below Albumin BID : Meadows catheter if indicated for accurate I's and O's in a critically ill patient. Endo: Sliding scale insulin if indicated to maintain euglycemia/low regimen with Novulin R TSH 0.53 Renal: Acute kidney injury? Creatinine 2.1. Unknown baseline. Check CT abdomen/pelvis rule out hydronephrosis. Urine electrolytes and eosinophils pending Monitor BMP .Creatnine 1.6 Heme: Coagulopathy likely secondary to end-stage liver disease Repeat CBC pending post transfusions ID: Recent urinary tract infection Vancomycin, cefepime and metronidazole initiated today. UA here is negative Blood cultures 2, UA and sputum all ordered along with influenza A and B FEN: Electrolyte derangement Received 40 mEq KCl in ED. Magnesium 2.1 Currently on normal saline at 84 cc now MSK: PT evaluate and treat Access Utilized peripheral IV. Central line if indicated Prophylaxis GI -pantoprazole DVT -SCD/pharmacological prophylaxis is contraindicated with INR greater than 2.0 Critical Care: my billing statement This patient remains critically ill with one or more organ systems which are or may become a threat to life. I have spent in excess of 30 minutes discontinuously in the care and management of this patient. This time is exclusive of procedures, and includes, but is not limited to, evaluation of the patient, review of the medical record, discussions with family, consultants, nursing staff, or respiratory therapy, and documentation in the medical record. Physician Frida Sanchez MD Jan 05, 2018 20:18
[2018-01-05] MEDS: ALBUMIN 5% INJ 250 ML IV SCH (21:18)
[2018-01-05] MEDS ORDERED: PHARMACY ORDERED LAB ONE (23:45)
[2018-01-06] VITALS (38 sets, daily range): BP systolic 104–162; BP diastolic 59–94; PULSE 46–97; RESP 14–30; TEMP 97.3–99.8; O2SAT 92–100
[2018-01-06] MEDS: MULTIVITAMIN INJ 10 ML, FOLIC ACID INJ 1 MG in SODIUM CHLORID 0.9% 500 ML INJ 500 ML IV SCH ×2 (00:23→21:38)
[2018-01-06] MEDS: VANCOMYCIN INJ 1,500 MG in SODIUM CHLORID 0.9% 500 ML INJ 500 ML IV SCH ×2 (00:23→18:00)
[2018-01-06] MEDS: metroNIDAZOLE 500 MG INJ 100 ML IV SCH ×4 (02:10→20:06)
[2018-01-06] MEDS: RESP: ALBUTEROL 2.5 MG/IPRATROPIUM 0.5 MG NEB (SCH) INH ×4 (03:21→20:08)
[2018-01-06] MEDS: DEXMEDETOMIDINE INJ 1,000 MCG in SODIUM CHLOR 0.9% 250 ML INJ 240 ML IV PRN (03:55)
[2018-01-06] MEDS: CHLORHEXIDINE GLUCONATE 2 % 1 PACK (2 CLOTHS) TOP SCH (04:00)
[2018-01-06 04:35] LABS: PROTHROMBIN TIME - PATIENT 144.1 SEC (9.8-11.6)
[2018-01-06 04:41] LABS: AUTOMATED NEUTROPHIL # 7.5 TH/MM3 (1.8-7.7); BASOPHIL % 0.4 % (0.0-2.0); EOSINOPHIL # 0.2 TH/MM3 (0-0.4); EOSINOPHIL % 1.8 % (0.0-4.0); HEMATOCRIT 32.5 % (39.0-51.0); HEMOGLOBIN 11.5 GM/DL (13.0-17.0); LYMPH % 5.8 % (9.0-44.0); LYMPHOCYTE # 0.5 TH/MM3 (1.0-4.8); MEAN CELL VOLUME 105.3 FL (80.0-100.0); MEAN CORPUSCULAR HEMOGLOBIN 37.2 PG (27.0-34.0); MEAN CORPUSCULAR HGB CONC 35.4 % (32.0-36.0); MONO % 7.2 % (0.0-8.0); MONOCYTE # 0.6 TH/MM3 (0-0.9); NEUT % 84.8 % (16.0-70.0); PLATELET COUNT 28 TH/MM3 (150-450); RED BLOOD COUNT 3.09 MIL/MM3 (4.50-5.90); RED CELL DISTRIBUTION WIDTH 16.6 % (11.6-17.2); WHITE BLOOD COUNT 8.9 TH/MM3 (4.0-11.0)
[2018-01-06 04:46] LABS: INTERNATIONAL NORMALIZED RATIO 14.5 RATIO
[2018-01-06 05:08] LABS: ALBUMIN 2.3 GM/DL (3.4-5.0); ALKALINE PHOSPHATASE 87 U/L (45-117); ALT (GPT) 69 U/L (12-78); AST (GOT) 72 U/L (15-37); BLOOD UREA NITROGEN 32 MG/DL (7-18); CALCIUM 7.5 MG/DL (8.5-10.1); CHLORIDE 116 MEQ/L (98-107); DIRECT BILIRUBIN ADULT 18.1 MG/DL (0.0-0.2); GLOMERULAR FILTRATION RATE 44 ML/MIN (>89); GLUCOSE,RANDOM 98 MG/DL (74-106); MAGNESIUM 1.6 MG/DL (1.5-2.5); PHOSPHORUS 1.3 MG/DL (2.5-4.9); SODIUM (NA) 149 MEQ/L (136-145); TOTAL PROTEIN 6.2 GM/DL (6.4-8.2)
[2018-01-06] MEDS: INSULIN NovoLIN REGULAR SUPPLEMENTAL SCALE SQ SCH ×4 (06:00→18:00)
[2018-01-06 06:44] LABS: INTERNATIONAL NORMALIZED RATIO 4.1 RATIO; PROTHROMBIN TIME - PATIENT 41.2 SEC (9.8-11.6)
[2018-01-06] MEDS ORDERED: POTASSIUM BICARBONATE 25 MEQ EFFERVESCENT TAB PO ONE (07:30)
[2018-01-06] MEDS ORDERED: POTASSIUM PHOSPHATE INJ 15 MMOL in SODIUM CHLORIDE 0.9% INJ 150 ML IV ONE ×2 (07:45→09:00)
[2018-01-06] MEDS ORDERED: MAGNESIUM OXIDE 400 MG TAB PO PRN (08:00)
[2018-01-06] MEDS ORDERED: POTASSIUM PHOSPHATE INJ 30 MMOL in SODIUM CHLOR 0.9% 250 ML INJ 250 ML IV PRN (08:00)
[2018-01-06] MEDS ORDERED: MAGNESIUM SULFATE INJ 2 GM in SODIUM CHLORIDE 0.9% INJ 96 ML IV PRN (08:00)
[2018-01-06] MEDS ORDERED: POTASSIUM CHLOR 40 MEQ PREMIX 100 ML IV PRN ×2 (08:00)
[2018-01-06] MEDS ORDERED: POTASSIUM PHOSPHATE MONOBASIC 500 MG TAB PO PRN (08:00)
[2018-01-06] MEDS ORDERED: SODIUM PHOSPHATE INJ 30 MMOL in SODIUM CHLOR 0.9% 250 ML INJ 240 ML IV PRN (08:00)
[2018-01-06] MEDS ORDERED: POTASSIUM PHOSPHATE MONOBASIC 500 MG TAB PO/TUBE PRN (08:00)
[2018-01-06] MEDS ORDERED: MAGNESIUM SULFATE INJ 4 GM in SODIUM CHLORIDE 0.9% INJ 92 ML IV PRN (08:00)
[2018-01-06] MEDS: LACTULOSE SYRUP 20 GM/30 ML CUP PO SCH ×4 (08:03→21:24)
[2018-01-06] MEDS: ALBUMIN 5% INJ 250 ML IV SCH ×2 (08:03→21:24)
[2018-01-06] MEDS: PANTOPRAZOLE SODIUM 40 MG VIAL IV PUSH SCH (08:05)
[2018-01-06] MEDS: RIFAXIMIN 550 MG TAB PO SCH ×2 (08:05→21:24)
[2018-01-06] MEDS: DOCUSATE SODIUM 50 MG/SENNA 8.6 MG TAB PO SCH ×2 (08:05→21:24)
[2018-01-06] MEDS: SODIUM CHLORIDE 0.9% FLUSH 10 ML FLUSH IV FLUSH SCH ×2 (08:05→21:24)
[2018-01-06] MEDS ORDERED: PHYTONADIONE INJ 10 MG in DEXTROSE 5% IN WATER INJ 50 ML IV ONE ×2 (09:00)
[2018-01-06] MEDS: ARTIFICIAL TEARS OPTH SOLN 15 ML BTL EACH EYE SCH ×3 (09:00→18:00)
[2018-01-06 09:16] LABS: BANDS 4 % (0-6); LYMPHOCYTES 1 % (9-44); MONOCYTES 9 % (0-8); MYELOCYTES 1 % (0-0); POLYS (SEG NEUTROPHILS) 84 % (16-70); PROMYELOCYTES 1 % (0-0)
--- NOTE | 2018-01-06 11:33 | PD.CONS ---
Consult Service Palliative Care Consult Requested By Dr. Kate Primary Care Physician No Primary Care Physician Reason for Consultation a. To assist with evaluation and management of symptoms including: altered mental status, agitation b. To assist medical decision maker(s) with: better understanding of current medical conditions; weighing benefits/burdens of medical treatment options; making medical treatment decisions. HPI History of Present Illness Mr. 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 Patient was brought in by [facility] on 01/03/18 as a Young act for evaluation for altered mental status and on arrival to the ER patient was complaining of left shoulder pain. Patient`s family reported that patient had been confused from the day before coming to the ER. Patient was recently admitted at [facility] and he left against medical advice. ER Course: * Vital signs: Temperature 95.4 degrees F rectally, pulse 89, respirations 14, BP 155/91, O2 saturation 97% on room air * Laboratory workup WBC 15.4, platelet count 47, sodium 132, potassium 2.7, BUN/ creatinine 44/2.19, total bilirubin 30.1, AST 122, ALT 119, ammonia less than 10 , lactic acid 5.0 total protein 6.9, albumin 1.8 * Toxicology positive for cannabinoids. * 40 mEq potassium chloride and 3 L normal saline administered * Abdomen/pelvis CT revealed localized ascites, dilatation of the common bile duct up to 11 mm without calcified gallstone, and the common bile duct. Gallbladder appears mildly distended. Mild induration of the mesenteric fluid in the right upper quadrant. * Head CT negative for any acute process. * Chest x-ray no acute disease. * EKG showed sinus rhythm with occasional ventricular premature complexes and nonspecific ST and T wave abnormality prolonged QT interval * Lumbar puncture attempted in ER and was unsuccessful * Antibiotics started for possible meningitis empirically administered. * Shoulder x-ray revealed degenerative changes of the AC joint with no acute abnormality. Patient admitted that the services of critical care management Dr. Suarez. Repeat ammonia level 81, lactulose and rifaximin started. EEG done on 01/04/18 revealed diffuse slowing likely due to medication effect or diffuse encephalopathy, no seizure activity or focal abnormality noted. Hematology Dr. Holt consulted for medical management of patient with end-stage liver disease, hepatitis C, coagulopathy. Patient has received a total of 8 units of FFP since admission. Clinical course complicated with encephalopathy, coagulopathy, and hyperammonemia. Palliative care consulted to assist with symptom management and establishing goals of care. Patient seen and examined in his room in ICU in the presence of his sister Lea Le. Patient is obtunded, not verbalizing, not following commands. Precedex infusion has been off for the past 2 hours. Patient is on O2 2L nasal cannula saturating mid to high 90s. Patient is afebrile with heart rates in the 50s-60s. laboratory workup today revealing WBC 8.9, hemoglobin 11.5, hematocrit 32.5, platelet count 28, PT 144.1, INR 14.5, fibrinogen 163. A total of 2 units FFP, 2 units platelets and 1 cryo precipitate to be transfused today. Obtained psychosocial and past medical history from patient's sister. According to patient's sister she is patient's power of deputy attorney general but is not sure if it includes healthcare. Requested patient's sister to bring in a copy of the power of [employer] papers. Patient is and has 3 adult daughters. Explained to patient`s sister that, legally if patient does not have a healthcare surrogate, by [facility] statute his 3 adult children should be his healthcare proxys. Patient's sister provided the daughter's names but did not provide their contact information. She said she will bring in their contact information tomorrow 01/07/18. According to patient's sister, patient does not have a living will. Listened to patient's sister explain trajectory of decline over the past 2 years. Patient has lost a lot of weight in the past year or so. He has had poor appetite, on and off diarrhea and vomiting which worsened in the past few weeks. Addressed code status, discussed risks, benefits and limitations of CPR given ongoing multiple comorbidities and his and recent hospitalization. Patient's sister wants everything possible done including resuscitation and intubation if needed. According to patient's sister when patient followed up with a GI physician she was notified that he has end-stage liver disease and has a poor prognosis. She even mentioned that she knows that her brother can anytime. Reiterated again to patient's sister the importance of bringing in power of deputy attorney general papers to check if they include health, in order to determine the appropriate legal medical decision maker for the patient. Patient's sister provided with palliative care contact information. Attempted to contact the patient's brother Gerardo Le- [phone] to try and obtain contact information for patient's 3 daughters with failure, unable to leave a voice message because voice box is full. 1720hrs- Telephone call to patient`s daughter Shani Mckeon, spoke to her who provided her cell phone number. Attempted to call patient`s daughter with no response, left message with contact information. 1724hrs-Received telephone call from patient`s sister Mimi Tate [phone] asking why patients` daughter was called and that she is the POA. Explained to patient`s sister that until she provides paperwork stating that she is the POA which includes health care, patient`s adult children would serve as health care proxys according to [place] Statute. 1738hrs -Received call back from patient`s daughter`s Shani Mckeon who chose to opt out of decision making and indicated that she would call back and provide her siblings telephone number. She also mentioned that her other sister Rachel Le has had a traumatic brain injury in the past and will most likely be capable of participating in medical decision making for her father. . Function/Cognitive Trajectory According to patient's sister, patient lived independently and was able to perform all his ADLs prior to this hospitalization but has been showing signs of decline in the past 2 years. Patient ambulates with a walking stick (not cane per sister) and in the past few months his gait has been unsteady-sister contributes it to patient's knee problems. Patient has lost a lot of weight in the past year- sister unable to quantify. Patient has had poor appetite in the past, periods of nausea, vomiting and diarrhea. . Review of Systems ROS Limitations: Clinical Condition, Intubated, Altered Mental Status Constitutional: COMPLAINS OF: Fatigue, Weight loss, Change in appetite, Pain, Generalized weakness Eyes: DENIES: Eye inflammation Ears, nose, mouth, throat: DENIES: Nasal discharge Respiratory: DENIES: Cough, Shortness of breath Cardiovascular: DENIES: Lower Extremity Edema Gastrointestinal: COMPLAINS OF: Abdominal pain, Diarrhea, Nausea, Vomiting Genitourinary: DENIES: Urinary incontinence Musculoskeletal: COMPLAINS OF: Joint pain Integumentary: COMPLAINS OF: Abnormal pigmentation Hematologic/Lymphatics: COMPLAINS OF: Bruising Psychiatric: COMPLAINS OF: Confusion Other ROS: ROS obtained from EMR, patient sister and clinical observation . Past Family Social History Coded Allergies: acetaminophen (Verified Allergy, Unknown, rash, 01/03/18) hydrocodone (Verified Allergy, Unknown, rash, 01/03/18) Past Medical History End-stage liver disease secondary to alcoholic cirrhosis Tobacco use Tetrahydrocannabinol use . Past Surgical History Right total knee replacement Removal of teeth . Reported Medications Reported Meds & Active Scripts Active Active Prescriptions or Reported Medications Unobtainable . Current Medications Medications (Trade) Dose Ordered Sig/Stone Route Start Time Stop Time Status Last Admin Sodium Chloride 1,000 ml @ 84 mls/hr [id number] IV 01/03/18 19:00 01/05/18 21:10 (NS Flush) 2 ml UNSCH PRN IV FLUSH 01/03/18 18:45 (NS Flush) 2 ml BID IV FLUSH 01/03/18 21:00 01/06/18 08:05 (Morphine Inj) 2 mg Q2H PRN IV PUSH 01/03/18 19:30 Future Hold (Protonix Inj) 40 mg DAILY IV PUSH 01/04/18 09:00 01/06/18 08:05 (Ativan Inj) 1 mg Q1H PRN IV PUSH 01/03/18 18:45 Future Hold 01/05/18 09:22 (Tears Naturale Opth Soln) 1 drop TID EACH EYE 01/04/18 09:00 01/05/18 18:00 (Zofran Inj) 4 mg Q6H PRN IV PUSH 01/03/18 18:45 (Duoneb Neb) 1 ampule Q6HR NEB INH 01/03/18 22:00 01/06/18 09:24 (Albuterol Neb) 2.5 mg Q2HR NEB PRN INH 01/03/18 18:45 Miscellaneous Information 1 Q361D XX 01/03/18 18:45 01/03/18 18:45 (Chlorhexidine 2% Cloth) 3 pack Taper DAILY@04 TOP 01/04/18 04:00 12/31/18 03:59 01/06/18 04:00 (Chlorhexidine 2% Cloth) 3 pack UNSCH PRN TOP 01/03/18 18:45 (Christine-Colace) 1 tab BID PO 01/03/18 21:00 01/06/18 08:05 (Milk Of Magnesia Liq) 30 ml Q12H PRN PO 01/03/18 18:45 (Senokot) 17.2 mg Q12H PRN PO 01/03/18 18:45 (Dulcolax Supp) 10 mg DAILY PRN RECTAL 01/03/18 18:45 (Lactulose Liq) 30 ml DAILY PRN PO 01/03/18 18:45 Cefepime HCl 2000 mg/Sodium Chloride 100 ml @ 200 mls/hr Q12H IV 01/03/18 23:00 01/05/18 23:30 Metronidazole 100 ml @ 100 mls/hr Q6H IV 01/03/18 20:00 01/06/18 08:03 Pharmacy Profile Note 0 ml @ 0 mls/hr UNSCH OTHER 01/03/18 19:00 (D50w (Vial) Inj) 50 ml UNSCH PRN IV PUSH 01/03/18 19:15 (Glucagon Inj) 1 mg UNSCH PRN OTHER 01/03/18 19:15 (NovoLIN R SUPPLEMENTAL SCALE) 1 Q6HR SQ 01/04/18 00:00 (Lactulose Liq) 30 ml QID PO 01/03/18 21:00 01/06/18 08:03 (Xifaxan) 550 mg BID PO 01/03/18 21:00 01/06/18 08:05 Vancomycin HCl 1500 mg/Sodium Chloride 515 ml @ 250 mls/hr Q18H IV 01/04/18 12:00 01/06/18 00:23 Dexmedetomidine HCl 1000 mcg/ Sodium Chloride 250 ml @ 3.75 mls/hr TITRATE PRN IV 01/05/18 17:15 01/06/18 03:55 Albumin Human 250 ml @ 250 mls/hr Q12H IV 01/05/18 21:00 01/06/18 08:03 Multivitamins 10 ml/Folic Acid 1 mg/Sodium Chloride 510.2 ml @ 125 mls/hr Q24H IV 01/05/18 22:00 01/10/18 21:59 01/06/18 00:23 Potassium Phosphate 15 mmol/ Sodium Chloride 155 ml @ 38.75 mls/ hr ONCE ONCE IV 01/06/18 09:00 01/06/18 12:59 Potassium Chloride 100 ml @ 50 mls/hr Q2H PRN IV 01/06/18 08:00 Potassium Chloride 100 ml @ 50 mls/hr Q2H PRN IV 01/06/18 08:00 (K-Lyte Cl Eff) 50 meq UNSCH PRN PO 01/06/18 08:00 Potassium Chloride 100 ml @ 25 mls/hr UNSCH PRN IV 01/06/18 08:00 Potassium Chloride 100 ml @ 50 mls/hr Q2H PRN IV 01/06/18 08:00 Magnesium Sulfate 4 gm/Sodium Chloride 100 ml @ 50 mls/hr UNSCH PRN IV 01/06/18 08:00 (Mag-Ox) 800 mg UNSCH PRN PO 01/06/18 08:00 Magnesium Sulfate 2 gm/Sodium Chloride 100 ml @ 50 mls/hr UNSCH PRN IV 01/06/18 08:00 (K-Phos) 2,000 mg Q4H PRN PO 01/06/18 08:00 Sodium Phosphate 30 mmol/Sodium Chloride 250 ml @ 42 mls/hr UNSCH PRN IV 01/06/18 08:00 (K-Phos) 2,000 mg UNSCH PRN PO/TUBE 01/06/18 08:00 Potassium Phosphate 30 mmol/ Sodium Chloride 260 ml @ 42 mls/hr UNSCH PRN IV 01/06/18 08:00 Family History Mother has a history of myocardial infarction Father from lung cancer . Substance Use Tobacco: Current smoker, 1 PPD for unknown duration. Quit 12/20/17 Alcohol: Drinks half a gallon of whiskey daily. Quit on 12/20/17 Prescription med abuse: None reported Illicits: History of THC use . Psychosocial History Patient has a daughter in [place] and he is not . He has a brother and sister in [facility]. . Spiritual/Cultural Factors Patient is Christian . Durable Power of [employer]: Completed, but not made available Health Care Surrogate(s): -Healthcare proxy's Andres [phone] cell/ [phone] home- Opted out of decision making as health care proxy Daughter- Mimi Ramos Daughter-Ivana Rios . Ethical and Legal Issues None identified at this time . Physical Exam Vital Signs Date Time Temp Pulse Resp B/P (MAP) Pulse Ox O2 Delivery O2 Flow Rate FiO2 01/06/18 10:25 98.6 57 24 104/59 97 01/06/18 10:25 98.6 57 24 104/59 97 01/06/18 10:00 56 01/06/18 10:00 56 26 104/59 (74) 95 01/06/18 09:30 54 16 104/64 (77) 96 01/06/18 09:24 97 Nasal Cannula 2.00 01/06/18 09:00 54 16 110/66 (81) 95 01/06/18 08:31 51 20 104/61 (75) 95 01/06/18 08:00 67 01/06/18 08:00 98.6 67 23 125/77 (93) 96 01/06/18 07:30 54 16 125/79 (94) 96 01/06/18 07:00 53 16 129/76 (93) 96 01/06/18 06:00 55 01/06/18 04:00 64 01/06/18 04:00 99.8 64 22 113/66 (82) 97 01/06/18 03:21 98 Nasal Cannula 2.00 01/06/18 02:00 62 01/06/18 00:30 97.8 50 14 150/83 95 01/06/18 00:15 97.3 51 14 137/82 95 01/06/18 00:00 97.0 46 14 137/82 (100) 94 01/06/18 00:00 46 01/05/18 22:26 95.8 48 14 122/76 94 01/05/18 22:12 95.7 48 14 126/79 94 01/05/18 22:00 48 01/05/18 21:13 98 Nasal Cannula 2.00 01/05/18 20:00 42 01/05/18 20:00 96.4 42 14 128/73 (91) 95 01/05/18 16:00 96.8 49 14 112/68 (83) 94 01/05/18 12:00 97.5 52 14 126/76 (93) 96 01/06/18 01/07/18 18:59 06:59 Intake Total 120 ml Balance 120 ml IV Total 100 ml Blood Product IV Normal Saline Flush 20 ml Exam CONSTITUTIONAL/GENERAL: This is a 57 yo male who appears older than is age, obtunded in mild distress TUBES/LINES/DRAINS: Meadows catheter, PIV, SCDs SKIN: Jaundice, Dry scaly skin, Ecchymoses on upper extremities. No wounds seen anteriorly. Skin temperature appropriate. Not diaphoretic. HEAD: Atraumatic. Normocephalic. EYES: Pupils equal and round and reactive. Extraocular motions intact. Scleral icterus. No injection or drainage. Fundi not examined. ENT: Unable to assess his hearing. Nose without bleeding or purulent drainage. Edentulous. NECK: Trachea midline. Supple, nontender. CARDIOVASCULAR: Regular rate and rhythm without murmurs, gallops, or rubs. No JVD. Peripheral pulses symmetric. RESPIRATORY/CHEST: Symmetric, unlabored respirations. Clear to auscultation. Breath sounds equal bilaterally. No wheezes, rales, or rhonchi. GASTROINTESTINAL: Abdomen soft, non-tender, nondistended. No hepato-splenomegaly , or palpable masses. No guarding. Bowel sounds present. GENITOURINARY: Without palpable bladder distension. Meadows catheter in place. MUSCULOSKELETAL: Extremities without clubbing, cyanosis, or edema. No joint tenderness or effusion noted. No calf tenderness. No mottling or clubbing. NEUROLOGICAL: Currently Obtunded, not verbalizing or following commands. Soft moaning. Motor and sensory grossly within normal limits. Moves all extremities. PSYCHIATRIC: Obtunded. Diagnostic Tests Laboratory Laboratory Tests Test 01/03/18 15:11 01/03/18 15:45 01/03/18 18:30 01/03/18 21:30 Prothrombin Time 29.3 SEC (9.8-11.6) Prothromb Time International Ratio 2.9 RATIO Activated Partial Thromboplast Time 61.4 SEC (24.3-30.1) Blood Urea Nitrogen 44 MG/DL (7-18) Creatinine 2.19 MG/DL (0.60-1.30) Random Glucose 81 MG/DL (74-106) Total Protein 6.9 GM/DL (6.4-8.2) Albumin 1.8 GM/DL (3.4-5.0) Calcium Level 8.4 MG/DL (8.5-10.1) Magnesium Level 2.1 MG/DL (1.5-2.5) Alkaline Phosphatase 94 U/L (45-117) Aspartate Amino Transf (AST/SGOT) 122 U/L (15-37) Alanine Aminotransferase (ALT/SGPT) 119 U/L (12-78) Total Bilirubin 30.1 MG/DL (0.2-1.0) Sodium Level 132 MEQ/L (136-145) Potassium Level 2.7 MEQ/L (3.5-5.1) Chloride Level 96 MEQ/L (98-107) Carbon Dioxide Level 23.5 MEQ/L (21.0-32.0) Anion Gap 13 MEQ/L (5-15) Estimat Glomerular Filtration Rate 31 ML/MIN (>89) Lactic Acid Level 5.0 mmol/L (0.4-2.0) 5.2 mmol/L (0.4-2.0) Ammonia LESS THAN 10 MCMOL/L 81 MCMOL/L (11-32) Total Creatine Kinase 139 U/L (39-308) Troponin I LESS THAN 0.02 NG/ML B-Type Natriuretic Peptide 30 PG/ML (0-100) Thyroid Stimulating Hormone 3rd Gen 0.530 uIU/ML (0.358-3.740) Salicylates Level LESS THAN 1.7 MG/DL Acetaminophen Level LESS THAN 2.0 MCG/ML Ethyl Alcohol Level LESS THAN 3 MG/DL (0-5) Urine Color DARK-BROWN (YELLW/STRAW) Urine Turbidity HAZY (CLEAR) Urine pH 6.0 (5.0-8.5) Urine Specific Moriarty 1.013 (1.002-1.035) Urine Protein NEG mg/dL (NEG-TRACE) Urine Glucose (UA) NEG mg/dL (NEG) Urine Ketones NEG mg/dL (NEG) Urine Occult Blood NEG (NEG) Urine Nitrite NEG (NEG) Urine Bilirubin LARGE (NEG) Urine Urobilinogen 4.0 MG/DL (LESS THAN Urine Leukocyte Esterase NEG (NEG) Urine Squamous Epithelial Cells <1 /hpf (0-5) Urine Amorphous Sediment RARE Urine Bacteria OCC /hpf (NONE) Microscopic Urinalysis Comment CATH-CULT NOT IND Urine Random Creatinine 75.5 MG/DL Urine Random Sodium 9 MEQ/L Urine Opiates Screen NEG (NEG) Urine Barbiturates Screen NEG (NEG) Urine Amphetamines Screen NEG (NEG) Urine Benzodiazepines Screen POS (NEG) Urine Cocaine Screen NEG (NEG) Urine Cannabinoids Screen POS (NEG) White Blood Count 15.4 TH/MM3 (4.0-11.0) Red Blood Count 4.02 MIL/MM3 (4.50-5.90) Hemoglobin 14.6 GM/DL (13.0-17.0) Hematocrit 42.3 % (39.0-51.0) Mean Corpuscular Volume 105.3 FL (80.0-100.0) Mean Corpuscular Hemoglobin 36.3 PG (27.0-34.0) Mean Corpuscular Hemoglobin Concent 34.5 % (32.0-36.0) Red Cell Distribution Width 15.7 % (11.6-17.2) Platelet Count 47 TH/MM3 (150-450) Mean Platelet Volume 12.0 FL (7.0-11.0) CBC Comment AUTO DIFF Differential Total Cells Counted 100 Neutrophils % (Manual) 78 % (16-70) Band Neutrophils % 20 % (0-6) Lymphocytes % 1 % (9-44) Monocytes % 1 % (0-8) Neutrophils # (Manual) 15.1 TH/MM3 (1.8-7.7) Differential Comment FINAL DIFF MANUAL Platelet Estimate RARE (NORMAL) Platelet Morphology Comment ENLARGED (NORMAL) Nasal Screen MRSA (PCR) MRSA NOT DETECTED (NOT Test 01/03/18 21:47 01/04/18 03:00 01/04/18 12:14 01/04/18 18:33 Troponin I LESS THAN 0.02 NG/ML LESS THAN 0.02 NG/ML White Blood Count 12.4 TH/MM3 (4.0-11.0) 8.0 TH/MM3 (4.0-11.0) Red Blood Count 3.51 MIL/MM3 (4.50-5.90) 3.00 MIL/MM3 (4.50-5.90) Hemoglobin 12.9 GM/DL (13.0-17.0) 11.0 GM/DL (13.0-17.0) Hematocrit 36.7 % (39.0-51.0) 31.5 % (39.0-51.0) Mean Corpuscular Volume 104.4 FL (80.0-100.0) 105.0 FL (80.0-100.0) Mean Corpuscular Hemoglobin 36.6 PG (27.0-34.0) 36.5 PG (27.0-34.0) Mean Corpuscular Hemoglobin Concent 35.1 % (32.0-36.0) 34.8 % (32.0-36.0) Red Cell Distribution Width 15.9 % (11.6-17.2) 16.3 % (11.6-17.2) Platelet Count 45 TH/MM3 (150-450) 26 TH/MM3 (150-450) Mean Platelet Volume 11.2 FL (7.0-11.0) 10.7 FL (7.0-11.0) Neutrophils (%) (Auto) 85.9 % (16.0-70.0) 83.4 % (16.0-70.0) Lymphocytes (%) (Auto) 4.2 % (9.0-44.0) 4.4 % (9.0-44.0) Monocytes (%) (Auto) 9.0 % (0.0-8.0) 11.3 % (0.0-8.0) Eosinophils (%) (Auto) 0.8 % (0.0-4.0) 0.7 % (0.0-4.0) Basophils (%) (Auto) 0.1 % (0.0-2.0) 0.2 % (0.0-2.0) Neutrophils # (Auto) 10.7 TH/MM3 (1.8-7.7) 6.7 TH/MM3 (1.8-7.7) Lymphocytes # (Auto) 0.5 TH/MM3 (1.0-4.8) 0.4 TH/MM3 (1.0-4.8) Monocytes # (Auto) 1.1 TH/MM3 (0-0.9) 0.9 TH/MM3 (0-0.9) Eosinophils # (Auto) 0.1 TH/MM3 (0-0.4) 0.1 TH/MM3 (0-0.4) Basophils # (Auto) 0.0 TH/MM3 (0-0.2) 0.0 TH/MM3 (0-0.2) CBC Comment AUTO DIFF AUTO DIFF Differential Comment AUTO DIFF CONFIRMED AUTO DIFF CONFIRMED Platelet Estimate LOW (NORMAL) LOW (NORMAL) Platelet Morphology Comment NORMAL (NORMAL) NORMAL (NORMAL) Tear Drop Cells 1+ (NORMAL) Prothrombin Time 28.2 SEC (9.8-11.6) 21.6 SEC (9.8-11.6) Prothromb Time International Ratio 2.8 RATIO 2.1 RATIO Activated Partial Thromboplast Time 61.2 SEC (24.3-30.1) Fibrinogen 78 mg/dL (227-377) 132 mg/dL (227-377) Blood Urea Nitrogen 42 MG/DL (7-18) 39 MG/DL (7-18) Creatinine 1.71 MG/DL (0.60-1.30) 1.67 MG/DL (0.60-1.30) Random Glucose 76 MG/DL (74-106) 81 MG/DL (74-106) Total Protein 5.4 GM/DL (6.4-8.2) 5.1 GM/DL (6.4-8.2) Albumin 1.5 GM/DL (3.4-5.0) 1.6 GM/DL (3.4-5.0) Calcium Level 7.4 MG/DL (8.5-10.1) 7.1 MG/DL (8.5-10.1) Phosphorus Level 2.7 MG/DL (2.5-4.9) Magnesium Level 1.7 MG/DL (1.5-2.5) Alkaline Phosphatase 73 U/L (45-117) 65 U/L (45-117) Aspartate Amino Transf (AST/SGOT) 95 U/L (15-37) 80 U/L (15-37) Alanine Aminotransferase (ALT/SGPT) 92 U/L (12-78) 77 U/L (12-78) Total Bilirubin 24.4 MG/DL (0.2-1.0) 24.5 MG/DL (0.2-1.0) Sodium Level 139 MEQ/L (136-145) 140 MEQ/L (136-145) Potassium Level 2.4 MEQ/L (3.5-5.1) 2.6 MEQ/L (3.5-5.1) 3.0 MEQ/L (3.5-5.1) Chloride Level 107 MEQ/L (98-107) 108 MEQ/L (98-107) Carbon Dioxide Level 21.6 MEQ/L (21.0-32.0) 20.0 MEQ/L (21.0-32.0) Anion Gap 10 MEQ/L (5-15) 12 MEQ/L (5-15) Estimat Glomerular Filtration Rate 41 ML/MIN (>89) 42 ML/MIN (>89) Lactic Acid Level 2.6 mmol/L (0.4-2.0) 2.2 mmol/L (0.4-2.0) 2.5 mmol/L (0.4-2.0) Protein Corrected Calcium 8.3 MG/DL (8.5-10.1) 8.2 MG/DL (8.5-10.1) Total Creatine Kinase 99 U/L (39-308) Random Vancomycin Level 9.8 COMMENT Hepatitis A IgM Antibody NEGATIVE (NEGATIVE) Hepatitis B Surface Antigen NEGATIVE (NEGATIVE) Hepatitis B Core IgM Antibody NEGATIVE (NEGATIVE) Hepatitis C Antibody REACTIVE (NEGATIVE) Direct Bilirubin 16.8 MG/DL (0.0-0.2) Random Cortisol 23.2 MCG/DL Test 01/05/18 04:06 01/06/18 04:08 01/06/18 05:10 01/06/18 08:25 White Blood Count 7.3 TH/MM3 (4.0-11.0) 8.9 TH/MM3 (4.0-11.0) Red Blood Count 2.94 MIL/MM3 (4.50-5.90) 3.09 MIL/MM3 (4.50-5.90) Hemoglobin 10.8 GM/DL (13.0-17.0) 11.5 GM/DL (13.0-17.0) Hematocrit 30.8 % (39.0-51.0) 32.5 % (39.0-51.0) Mean Corpuscular Volume 104.7 FL (80.0-100.0) 105.3 FL (80.0-100.0) Mean Corpuscular Hemoglobin 36.8 PG (27.0-34.0) 37.2 PG (27.0-34.0) Mean Corpuscular Hemoglobin Concent 35.2 % (32.0-36.0) 35.4 % (32.0-36.0) Red Cell Distribution Width 16.1 % (11.6-17.2) 16.6 % (11.6-17.2) Platelet Count 23 TH/MM3 (150-450) 28 TH/MM3 (150-450) Mean Platelet Volume 10.3 FL (7.0-11.0) 11.0 FL (7.0-11.0) Neutrophils (%) (Auto) 81.2 % (16.0-70.0) 84.8 % (16.0-70.0) Lymphocytes (%) (Auto) 6.5 % (9.0-44.0) 5.8 % (9.0-44.0) Monocytes (%) (Auto) 10.7 % (0.0-8.0) 7.2 % (0.0-8.0) Eosinophils (%) (Auto) 1.4 % (0.0-4.0) 1.8 % (0.0-4.0) Basophils (%) (Auto) 0.2 % (0.0-2.0) 0.4 % (0.0-2.0) Neutrophils # (Auto) 5.9 TH/MM3 (1.8-7.7) 7.5 TH/MM3 (1.8-7.7) Lymphocytes # (Auto) 0.5 TH/MM3 (1.0-4.8) 0.5 TH/MM3 (1.0-4.8) Monocytes # (Auto) 0.8 TH/MM3 (0-0.9) 0.6 TH/MM3 (0-0.9) Eosinophils # (Auto) 0.1 TH/MM3 (0-0.4) 0.2 TH/MM3 (0-0.4) Basophils # (Auto) 0.0 TH/MM3 (0-0.2) 0.0 TH/MM3 (0-0.2) CBC Comment AUTO DIFF AUTO DIFF Differential Comment AUTO DIFF CONFIRMED FINAL DIFF MANUAL Platelet Estimate LOW (NORMAL) LOW (NORMAL) Platelet Morphology Comment NORMAL (NORMAL) ENLARGED (NORMAL) Lincoln Cells 1+ (NORMAL) Prothrombin Time 19.2 SEC (9.8-11.6) 144.1 SEC (9.8-11.6) 41.2 SEC (9.8-11.6) Prothromb Time International Ratio 1.9 RATIO 14.5 RATIO 4.1 RATIO Blood Urea Nitrogen 35 MG/DL (7-18) 32 MG/DL (7-18) Creatinine 1.66 MG/DL (0.60-1.30) 1.60 MG/DL (0.60-1.30) Random Glucose 86 MG/DL (74-106) 98 MG/DL (74-106) Total Protein 5.5 GM/DL (6.4-8.2) 6.2 GM/DL (6.4-8.2) Calcium Level 7.4 MG/DL (8.5-10.1) 7.5 MG/DL (8.5-10.1) Phosphorus Level 1.2 MG/DL (2.5-4.9) 1.3 MG/DL (2.5-4.9) Magnesium Level 2.0 MG/DL (1.5-2.5) 1.6 MG/DL (1.5-2.5) Sodium Level 145 MEQ/L (136-145) 149 MEQ/L (136-145) Potassium Level 2.2 MEQ/L (3.5-5.1) 2.1 MEQ/L (3.5-5.1) Chloride Level 114 MEQ/L (98-107) 116 MEQ/L (98-107) Carbon Dioxide Level 21.0 MEQ/L (21.0-32.0) 21.0 MEQ/L (21.0-32.0) Anion Gap 10 MEQ/L (5-15) 12 MEQ/L (5-15) Estimat Glomerular Filtration Rate 43 ML/MIN (>89) 44 ML/MIN (>89) Protein Corrected Calcium 8.3 MG/DL (8.5-10.1) Ammonia 144 MCMOL/L (11-32) 155 MCMOL/L (11-32) Differential Total Cells Counted 100 Neutrophils % (Manual) 84 % (16-70) Band Neutrophils % 4 % (0-6) Lymphocytes % 1 % (9-44) Monocytes % 9 % (0-8) Neutrophils # (Manual) 8.0 TH/MM3 (1.8-7.7) Myelocytes 1 % (0-0) Promyelocytes 1 % (0-0) Albumin 2.3 GM/DL (3.4-5.0) Alkaline Phosphatase 87 U/L (45-117) Aspartate Amino Transf (AST/SGOT) 72 U/L (15-37) Alanine Aminotransferase (ALT/SGPT) 69 U/L (12-78) Total Bilirubin 24.0 MG/DL (0.2-1.0) Direct Bilirubin 18.1 MG/DL (0.0-0.2) Fibrinogen 163 mg/dL (227-377) Result Diagram: 01/06/1840701/06/18407 Microbiology Microbiology Date/Time Source Procedure Growth Status 01/03/18 21:57 Blood Peripheral Aerobic Blood Culture - Preliminary NO GROWTH IN 2 DAYS Resulted 01/03/18 21:57 Blood Peripheral Anaerobic Blood Culture - Preliminary NO GROWTH IN 2 DAYS Resulted 01/03/18 21:47 Blood Peripheral Aerobic Blood Culture - Preliminary NO GROWTH IN 2 DAYS Resulted 01/03/18 21:47 Blood Peripheral Anaerobic Blood Culture - Preliminary NO GROWTH IN 2 DAYS Resulted 01/03/18 15:11 Blood Peripheral Aerobic Blood Culture - Preliminary NO GROWTH IN 2 DAYS Resulted 01/03/18 15:11 Blood Peripheral Anaerobic Blood Culture - Preliminary NO GROWTH IN 2 DAYS Resulted 01/03/18 15:00 Blood Peripheral Aerobic Blood Culture - Preliminary NO GROWTH IN 2 DAYS Resulted 01/03/18 15:00 Blood Peripheral Anaerobic Blood Culture - Preliminary NO GROWTH IN 2 DAYS Resulted Imaging Last Impressions Abdomen X-Ray 01/04/18 0000 Signed Impressions: Service Date/Time: Thursday, January 04, 2018 09:46 - CONCLUSION: 1. Suction type nasoenteric catheter tip in the distal stomach near the duodenal bulb. Stiven Mathis MD Head CT 01/03/181436 Signed Impressions: Service Date/Time: Wednesday, January 03, 2018 15:17 - CONCLUSION: Negative for an acute process. Sid Chilel MD FACR Chest X-Ray 01/03/181436 Signed Impressions: Service Date/Time: Wednesday, January 03, 2018 14:55 - CONCLUSION: No acute disease. Ricky Gómez Jr., MD Shoulder X-Ray 01/03/18 0000 Signed Impressions: Service Date/Time: Wednesday, January 03, 2018 15:00 - CONCLUSION: Degenerative changes of the a.c. joint. No acute abnormality. Ricky Gómez Jr., MD Abdomen/Pelvis CT 01/03/18 0000 Signed Impressions: Service Date/Time: Wednesday, January 03, 2018 20:22 - CONCLUSION: 1. Localized ascites about the liver without tracking into the abdomen or pelvis. 2. Dilation of the common bile duct up to 11 mm without calcified gallstones or calcifications in the common bile duct. The gallbladder appears mildly distended. 3. Mild induration of the mesenteric fat in the right upper quadrant. Ricky Milan MD Patient/Family Conference Family Conference Location: Bedside, Telephone Issues Discussed: * Palliative care role, purpose, approach * Additional medical, psychosocial, and spiritual history * Patients general health, functional status, and cognitive changes in the months leading up to the current hospitalization * Patient/family understanding of the current medical problems * Patient/family understanding of prognosis * Patients goals of care as best understood from advance directives and/or conversations and/or values * Current medical treatment options and benefits/burdens of those options * Likely scenarios comparing ongoing aggressive care with a transition to comfort measures only * Questions answered to the best of my ability * Palliative care contact information provided Assessment and Plan Disease Oriented Problem List: (1) Elevated liver function tests (2) Lactic acidosis (3) Acute kidney injury (4) Coagulopathy (5) Hyperammonemia (6) History of ETOH abuse Symptom Scale: (1) Altered mental status 0-10 Scale: Unable to quantify Comment: History of liver cirrhosis. Lactic acidosis, hyper ammonia. . (2) Agitation Comment: . Pertinent Non-Medical Issues Psychosocial: Patient was born and raised in [facility]. Patient was once and once. He has no background. 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 Patient usually spends 6 months in [place] in 6 months in [place]. Patient he has 3 adult daughters who live in [place]. Spiritual: Patient is Christian Legal: Patient's sister Lea Le stating that she is power of deputy attorney general- pending bringing in copies for verification Ethical issues impacting care: None identified at this time . Important Contacts Qadtpfea-Aiwuohj-Pemz Daughter- Mimi Ramos Daughter-Ivana Rios Sister- Lea Le-[phone] Brother- Gerardo Le- [phone] . Prognosis Mr. 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 Patient was brought in by [facility] on 01/03/18 as a [facility] for evaluation for altered mental status and on arrival to the ER patient was complaining of left shoulder pain. Clinical course complicated with encephalopathy, coagulopathy, and hyperammonemia. Given ongoing comorbidities, patient remains at very high risk for further complications, deterioration and decline. . Code Status: Full Code Plan PLAN: Legal decision maker: Patient is currently unable to participate in medical decision making. According to [place] Statute, patient`s adult daughters Charla Ramos and Ivana Rios will serve as patient`s health care proxys. Goals: Aggressive per patient`s sister who is a self named POA. Pending discussion with patient`s daughters when contact information is made available. CODE STATUS: Full code According to patient's sister she is patient's power of deputy attorney general but is not sure if it includes healthcare. Requested patient's sister to bring in a copy of the power of [employer] papers. Patient is and has 3 adult daughters. Explained to patient`s sister that, legally if patient does not have a healthcare surrogate, by [facility] statute his 3 adult children should be his healthcare proxys. Patient's sister provided the daughter's names but did not provide their contact information. She said she will bring in their contact information tomorrow 01/07/18. According to patient's sister, patient does not have a living will. Listened to patient's sister explain trajectory of decline over the past 2 years. Patient has lost a lot of weight in the past year or so. He has had poor appetite, on and off diarrhea and vomiting which worsened in the past few weeks. Addressed code status, discussed risks, benefits and limitations of CPR given ongoing multiple comorbidities and his and recent hospitalization. Patient's sister wants everything possible done including resuscitation and intubation if needed. According to patient's sister when patient followed up with a GI physician she was notified that he has end-stage liver disease and has a poor prognosis. She even mentioned that she knows that her brother can anytime. Reiterated again to patient's sister the importance of bringing in power of deputy attorney general papers to check if they include health, in order to determine the appropriate legal medical decision maker for the patient. Patient's sister provided with palliative care contact information. Attempted to contact the patient's brother Gerardo Le- [phone] to try and obtain contact information for patient's 3 daughters with failure, unable to leave a voice message because voice box is full. [id number] -Received call back from patient`s daughter`s Shani Mckeon who chose to opt out of decision making and indicated that she would call back and provide her siblings telephone number. She also mentioned that her other sister Rachel Le has had a traumatic brain injury in the past and will most likely be capable of participating in medical decision making for her father. SYMPTOMS: * Pain: History of knee pain and liver cirrhosis. Patient started on Rifaximin. Morphine sulfate currently on hold. Patient is not showing signs of pain at this time. * Agitation: Multifactorial. Hx of ETOH abuse, liver cirrhosis with hyperammonemia. Patient was on Precedex infusion. Currently on hold. Patient is not agitated at time of visit. No recommendations at this time. Palliative care will continue to follow the patient during hospital course as condition evolves, to assist patient/decision-maker with understanding of their medical conditions, weighing benefits/burdens of treatment options, for clarification of goals of treatment. Additionally will assist with any symptoms of palliative concern. . Thank you for the opportunity to participate in the care of Mr. Le. Attestation To help prompt me to consider important information that might be impacting today's encounter and assessment, information from prior notes written by myself or my colleagues may have been "brought forward" into today's note. My signature on this note, however, is an attestation that I personally performed the exam, history, and/or decision-making noted today, and, unless otherwise indicated, the interactions with patient, family, and staff as well as the review of records all occurred today. I also attest that the listed assessment and stated plan reflect my best clinical judgment today based on the combination of historical information, prior notes, and today's exam/ interactions. When time spent is documented, it refers only to time spent today by the signer, or if indicated, combined time spent today by collaborating physician/nurse practitioner. Irasema Abernathy Jan 06, 2018 11:33
[2018-01-06] MEDS: CEFEPIME INJ 2,000 MG in SODIUM CHLORIDE 0.9% INJ 100 ML IV SCH ×2 (12:01→23:44)
--- NOTE | 2018-01-06 15:53 | HHI.CCPN ---
Subjective Remarks/Hospital Course This is a 57-year-old male. Date of admission 01/03/2018. Past medical history includes end-stage liver disease secondary to alcohol. Patient ceased drinking tobacco December 20. Patient ceased smoking tobacco . He drank half a gallon of whiskey daily for an unspecified amount of time according to brother Gerardo and sister Lea. Patient was recently to [facility] with a total bilirubin 29 and elevated ammonia 170. At that time a CAT scan of the abdomen pelvis revealed ascites and cholelithiasis without cholecystitis. Patient was recently discharged from [facility] Today, patient was brought in under [facility] due to altered mental status and refusing to be transferred to the hospital. At this facility, patient noted to have lactic acidosis 5. Potassium 2.7, total bilirubin of 30 elevated transaminases. INR is currently 2.9. CBC is currently pending. X-ray of chest and shoulder revealed no acute findings. CT brain revealed no acute intracranial findings. Patient received 40 mEq potassium chloride for potassium 2.7. Patient received ampicillin, vancomycin and ceftriaxone for possible meningitis. A lumbar puncture was attempted by the ED physician unsuccessfully. We are asked to admit the patient. There is no repeat lactate was 5.2. Repeat ammonia level after initial is less than 10 is currently 81. Started on lactulose 30 cc 4 times daily and rifaximin 550 mg p.o. twice daily Subjective: 36: Afebrile . Patient remains on sedation with Precedex infusion. Coagulopathy labs pending this a.m. status post transfusion. Noted IV infiltration last evening in the ED left arm significantly edematous. 01/05: Sedation minimized ,patient aggressive/ combative thrashing wildly completely disoriented and not responding to any commands. Ammonia continues to be elevated 144. 01/06: Sedation discontinued. Patient remains encephalopathic. Ammonia level continues to increase, despite rifaximin and lactulose. Otitis panel revealed return notable for hepatitis C. Patient continues to be coagulopathic, INR 4.1, Fibrinogen 163, platelet count 26 this a.m.. FFP, vitamin K ,cryoprecipitate and platelets being transfused. Hematology has been consulted. GI has been consulted. Objective Vital Signs Date Time Temp Pulse Resp B/P (MAP) Pulse Ox O2 Delivery O2 Flow Rate FiO2 01/06/18 14:26 98.5 65 23 162/75 100 01/06/18 09:24 Nasal Cannula 2.00 Intake and Output 01/06/18 01/06/18 01/07/18 08:00 16:00 00:00 Intake Total 1470 ml 1342 ml Output Total 4250 ml Balance -2780 ml 1342 ml Result Diagram: 01/06/18 0408 01/06/18 0408 Imaging Last Impressions Head CT 01/03/18 1437 Signed Impressions: Service Date/Time: Wednesday, January 03, 2018 15:17 - CONCLUSION: Negative for an acute process. Sid Chilel MD FACR Chest X-Ray 01/03/18 1437 Signed Impressions: Service Date/Time: Wednesday, January 03, 2018 14:55 - CONCLUSION: No acute disease. Ricky Gómez Jr., MD Shoulder X-Ray 01/03/18 0000 Signed Impressions: Service Date/Time: Wednesday, January 03, 2018 15:00 - CONCLUSION: Degenerative changes of the a.c. joint. No acute abnormality. Ricky Gómez Jr., MD Objective Remarks GENERAL: 57-year-old disheveled male currently sedated in bed jaundice and quite encephalopathic SKIN: Warm and dry. Jaundice HEAD: Atraumatic. Normocephalic. EYES: Pupils equal and round. + scleral icterus. No injection or drainage. ENT: No nasal bleeding or discharge. Mucous membranes pink and moist. Edentulous NECK: Trachea midline. No JVD. CARDIOVASCULAR: Regular rate and rhythm. S1, S2. No S4 without murmur RESPIRATORY: Diminished breath sounds throughout. Positive end expiratory wheeze. No rales or rhonchi. GASTROINTESTINAL: Abdomen mildly distended. Hypoactive bowel sounds appreciated. Positive past megaly. MUSCULOSKELETAL: Extremities without clubbing, cyanosis, or edema. No obvious deformities. NEUROLOGICAL: Patient is off , not responding to commands Motor grossly within normal limits. Five out of 5 muscle strength in the arms and legs. Garbled speech. Positive asterixis A/P Assessment and Plan Neuro/Psych: Acute encephalopathy History of EtOH use/abuse THC use Noted allergy to acetaminophen/elevated transaminases Morphine sulfate if indicated for pain management Continue dexmedetomidine drip to maintain an RASS of 0 CT brain on admission revealed no acute intracranial findings Ammonia level trending upward-144->155, continuing lactulose and rifaximin Consider LP via IR, when coagulopathy is corrected Seizure Precautions CV: Lactic acidosis Currently on normal saline at 84 cc an hour Not requiring vasopressors and/or antihypertensives Serial lactates until cleared. Will receive fresh frozen plasma and IV fluids overnight. Resp: Tobaccoism Nasal cannula to maintain saturations greater than or equal to 92% Incentive spirometry while awake Chest x-ray on admission revealed no acute cardiopulmonary findings GI: Elevated total bilirubin Elevated transaminases Hypoalbuminemia Cholelithiasis History of esophageal varices? Hyperammonia Alcoholic hepatitis Hepatitis C ESLD Total bilirubin was 30. Was 29 last week according to brother. Continue lactulose 30 cc 4 times daily and rifaximin 550 mg p.o. twice daily 01/04 CT abdomen/pelvis Localized ascites about the liver without tracking into the abdomen or pelvis. Dilation of the common bile duct up to 11 mm without calcified gallstones or calcifications in the common bile duct. The gallbladder appears mildly distended. Mild induration of the mesenteric fat in the right upper quadrant. We will treat for SBP see below Albumin BID MELD score 39 GI consulted : Meadows catheter if indicated for accurate I's and O's in a critically ill patient. Endo: Sliding scale insulin if indicated to maintain euglycemia/low regimen with Novulin R TSH 0.53 Renal: Acute kidney injury? Creatinine 2.1. Unknown baseline. Check CT abdomen/pelvis rule out hydronephrosis. Urine electrolytes and eosinophils pending Monitor BMP .Creatinine 1.6 Heme: Coagulopathy likely secondary to end-stage liver disease Repeat CBC pending post transfusions Heme consulted ID: Recent urinary tract infection Vancomycin, cefepime and metronidazole initiated today. UA here is negative Blood cultures 2, UA and sputum all ordered along with influenza A and B FEN: Electrolyte derangement Received 40 mEq KCl in ED. Magnesium 2.1 Currently on normal saline at 84 cc now MSK: PT evaluate and treat Access Utilized peripheral IV. Central line if indicated Prophylaxis GI -pantoprazole DVT -SCD/pharmacological prophylaxis is contraindicated with INR greater than 2.0 Discussed with GAS METER INSTALLER at bedside (Natacha Castro), and patient's sister Critical Care: my billing statement This patient remains critically ill with one or more organ systems which are or may become a threat to life. I have spent in excess of 35 minutes discontinuously in the care and management of this patient. This time is exclusive of procedures, and includes, but is not limited to, evaluation of the patient, review of the medical record, discussions with family, consultants, nursing staff, or respiratory therapy, and documentation in the medical record. 01/06- Palliative care has been consulted, extensive discussion with family regarding the criticality of this patient's illness, MELD score. Family at this time requests aggressive measures be continued and would like to discuss with GI possibility of liver transplantation, which I informed the sister , the patient is not a candidate with his active drinking. Physician Frida Sanchez MD Jan 06, 2018 15:53
--- NOTE | 2018-01-06 16:30 | PD.CONS ---
HPI History of Present Illness This is a 57 year old unfortunate male who is currently being managed in the intensive care setting arrival date 01/03/18. Patient is randomly opening eyes , nonverbal conversation, but does groan to pain right upper quadrant abdomen. 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 Currently ex-girlfriend is sitting by his bedside and is answering history questions as best she can. Patient is originally from [facility], and came down mid December visit with his mother. Ex-girlfriend states patient always had "stomach issues", and she thinks he had colitis at one point. It is unknown history of EGD or colonoscopy. According to the record patient ceased drinking on December 20, 2017. NG tube to wall suction is in place, patient has had 3 large loose diarrhea stools today, rectal Meadows has been placed. 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 Past Surgical History Right total knee replacement Removal of teeth . (Scarlet Sanchez) Coded Allergies: acetaminophen (Verified Allergy, Unknown, rash, 01/03/18) hydrocodone (Verified Allergy, Unknown, rash, 01/03/18) Medications Administered Medications Medications (Trade) Dose Ordered Sig/Stone Route PRN Reason Start Time Stop Time Status Last Admin Dose Admin Sodium Chloride 1,000 ml @ 84 mls/hr [id number] IV 01/03/18 19:00 01/05/18 21:10 Sodium Chloride (NS Flush) 2 ml BID IV FLUSH 01/03/18 21:00 01/06/18 08:05 Pantoprazole Sodium (Protonix Inj) 40 mg DAILY IV PUSH 01/04/18 09:00 01/06/18 08:05 Lorazepam (Ativan Inj) 1 mg Q1H PRN IV PUSH Agitation/Sedation 01/03/18 18:45 Future Hold 01/05/18 09:22 Artificial Tears (Tears Naturale Opth Soln) 1 drop TID EACH EYE 01/04/18 09:00 01/05/18 18:00 Albuterol/ Ipratropium (Duoneb Neb) 1 ampule Q6HR NEB INH 01/03/18 22:00 01/06/18 15:18 Miscellaneous Information 1 [id number] XX 01/03/18 18:45 01/03/18 18:45 Chlorhexidine Gluconate (Chlorhexidine 2% Cloth) 3 pack Taper DAILY@04 TOP 01/04/18 04:00 12/31/18 03:59 01/06/18 04:00 Senna/Docusate Sodium (Christine-Colace) 1 tab BID PO 01/03/18 21:00 01/06/18 08:05 Cefepime HCl 2000 mg/Sodium Chloride 100 ml @ 200 mls/hr Q12H IV 01/03/18 23:00 01/06/18 12:01 Metronidazole 100 ml @ 100 mls/hr Q6H IV 01/03/18 20:00 01/06/18 14:08 Lactulose (Lactulose Liq) 30 ml QID PO 01/03/18 21:00 01/06/18 14:08 Rifaximin (Xifaxan) 550 mg BID PO 01/03/18 21:00 01/06/18 08:05 Vancomycin HCl 1500 mg/Sodium Chloride 515 ml @ 250 mls/hr Q18H IV 01/04/18 12:00 01/06/18 00:23 Dexmedetomidine HCl 1000 mcg/ Sodium Chloride 250 ml @ 3.75 mls/hr TITRATE PRN IV SEDATION 01/05/18 17:15 Future Hold 01/06/18 03:55 Albumin Human 250 ml @ 250 mls/hr Q12H IV 01/05/18 21:00 01/06/18 08:03 Multivitamins 10 ml/Folic Acid 1 mg/Sodium Chloride 510.2 ml @ 125 mls/hr Q24H IV 01/05/18 22:00 01/10/18 21:59 01/06/18 00:23 Family History Mother has a history of myocardial infarction Father from lung cancer . Social History ETOH abuse Has girlfriend in [facility], and ex-girlfriend who is here now (Scarlet Sanchez) GI Exam Vitals I&O Vital Signs Date Time Temp Pulse Resp B/P (MAP) Pulse Ox O2 Delivery O2 Flow Rate FiO2 3/8/18 15:00 60 22 144/81 (102) 98 01/06/18 14:31 62 23 142/84 (103) 100 01/06/18 14:26 98.5 65 23 162/75 100 01/06/18 14:01 162/75 (104) 96 01/06/18 14:00 85 01/06/18 14:00 85 30 95 01/06/18 13:30 63 22 153/85 (107) 99 01/06/18 13:00 64 21 149/94 (112) 99 01/06/18 12:30 61 25 135/85 (102) 99 01/06/18 12:25 97.8 61 22 135/85 99 01/06/18 12:01 97.8 51 16 126/70 (88) 96 01/06/18 12:00 53 01/06/18 12:00 53 16 95 01/06/18 11:30 50 17 128/68 (88) 95 01/06/18 11:00 52 17 111/69 (83) 95 01/06/18 10:25 98.6 57 24 104/59 97 01/06/18 10:25 98.6 57 24 104/59 97 01/06/18 10:00 56 01/06/18 10:00 56 26 104/59 (74) 95 01/06/18 09:30 54 16 104/64 (77) 96 01/06/18 09:24 97 Nasal Cannula 2.00 01/06/18 09:00 54 16 110/66 (81) 95 01/06/18 08:31 51 20 104/61 (75) 95 01/06/18 08:00 67 01/06/18 08:00 98.6 67 23 125/77 (93) 96 01/06/18 07:30 54 16 125/79 (94) 96 01/06/18 07:00 53 16 129/76 (93) 96 01/06/18 06:00 55 01/06/18 04:00 64 01/06/18 04:00 99.8 64 22 113/66 (82) 97 01/06/18 03:21 98 Nasal Cannula 2.00 01/06/18 02:00 62 01/06/18 00:30 97.8 50 14 150/83 95 01/06/18 00:15 97.3 51 14 137/82 95 01/06/18 00:00 97.0 46 14 137/82 (100) 94 01/06/18 00:00 46 01/05/18 22:26 95.8 48 14 122/76 94 01/05/18 22:12 95.7 48 14 126/79 94 01/05/18 22:00 48 01/05/18 21:13 98 Nasal Cannula 2.00 01/05/18 20:00 42 01/05/18 20:00 96.4 42 14 128/73 (91) 95 I/O 01/05/18 01/05/18 01/05/18 01/06/18 01/06/18 01/06/18 07:00 15:00 23:00 07:00 15:00 23:00 Intake Total 400 ml 2202 ml 1570 ml 1342 ml Output Total 2300 ml 2600 ml 4250 ml Balance -1900 ml -398 ml -2680 ml 1342 ml IV Total 400 ml 1752 ml 965 ml 350 ml Tube Feeding 250 ml FFP 605 ml 358 ml Platelets 355 ml Cryoprecipitate 219 ml Blood Product IV Normal Saline Flush 60 ml Other 200 ml Output Urine Total 2300 ml 2600 ml 4250 ml # Bowel Movements 0 1 0 Imaging Last Impressions Abdomen X-Ray 01/04/18 0000 Signed Impressions: Service Date/Time: Thursday, January 04, 2018 09:46 - CONCLUSION: 1. Suction type nasoenteric catheter tip in the distal stomach near the duodenal bulb. Stiven Mathis MD Head CT 01/03/18 1437 Signed Impressions: Service Date/Time: Wednesday, January 03, 2018 15:17 - CONCLUSION: Negative for an acute process. Sid Chilel MD FACR Chest X-Ray 01/03/18 1437 Signed Impressions: Service Date/Time: Wednesday, January 03, 2018 14:55 - CONCLUSION: No acute disease. Ricky Gómez Jr., MD Shoulder X-Ray 01/03/18 0000 Signed Impressions: Service Date/Time: Wednesday, January 03, 2018 15:00 - CONCLUSION: Degenerative changes of the a.c. joint. No acute abnormality. Ricky Gómez Jr., MD Abdomen/Pelvis CT 01/03/18 0000 Signed Impressions: Service Date/Time: Wednesday, January 03, 2018 20:22 - CONCLUSION: 1. Localized ascites about the liver without tracking into the abdomen or pelvis. 2. Dilation of the common bile duct up to 11 mm without calcified gallstones or calcifications in the common bile duct. The gallbladder appears mildly distended. 3. Mild induration of the mesenteric fat in the right upper quadrant. Ricky Milan MD Laboratory Test 01/06/18 04:08 01/06/18 05:10 01/06/18 08:25 01/06/18 11:23 White Blood Count 8.9 TH/MM3 Red Blood Count 3.09 MIL/MM3 Hemoglobin 11.5 GM/DL Hematocrit 32.5 % Mean Corpuscular Volume 105.3 FL Mean Corpuscular Hemoglobin 37.2 PG Mean Corpuscular Hemoglobin Concent 35.4 % Red Cell Distribution Width 16.6 % Platelet Count 28 TH/MM3 Mean Platelet Volume 11.0 FL Neutrophils (%) (Auto) 84.8 % Lymphocytes (%) (Auto) 5.8 % Monocytes (%) (Auto) 7.2 % Eosinophils (%) (Auto) 1.8 % Basophils (%) (Auto) 0.4 % Neutrophils # (Auto) 7.5 TH/MM3 Lymphocytes # (Auto) 0.5 TH/MM3 Monocytes # (Auto) 0.6 TH/MM3 Eosinophils # (Auto) 0.2 TH/MM3 Basophils # (Auto) 0.0 TH/MM3 CBC Comment AUTO DIFF Differential Total Cells Counted 100 Neutrophils % (Manual) 84 % Band Neutrophils % 4 % Lymphocytes % 1 % Monocytes % 9 % Neutrophils # (Manual) 8.0 TH/MM3 Myelocytes 1 % Promyelocytes 1 % Differential Comment FINAL DIFF MANUAL Platelet Estimate LOW Platelet Morphology Comment ENLARGED Prothrombin Time 144.1 SEC 41.2 SEC Prothromb Time International Ratio 14.5 RATIO 4.1 RATIO Blood Urea Nitrogen 32 MG/DL Creatinine 1.60 MG/DL Random Glucose 98 MG/DL Total Protein 6.2 GM/DL Albumin 2.3 GM/DL Calcium Level 7.5 MG/DL Phosphorus Level 1.3 MG/DL 1.8 MG/DL Magnesium Level 1.6 MG/DL Alkaline Phosphatase 87 U/L Aspartate Amino Transf (AST/SGOT) 72 U/L Alanine Aminotransferase (ALT/SGPT) 69 U/L Total Bilirubin 24.0 MG/DL Direct Bilirubin 18.1 MG/DL Sodium Level 149 MEQ/L Potassium Level 2.1 MEQ/L Chloride Level 116 MEQ/L Carbon Dioxide Level 21.0 MEQ/L Anion Gap 12 MEQ/L Estimat Glomerular Filtration Rate 44 ML/MIN Ammonia 155 MCMOL/L Fibrinogen 163 mg/dL Date/Time Source Procedure Growth Status 01/03/18 21:57 Blood Peripheral Aerobic Blood Culture - Preliminary NO GROWTH IN 3 DAYS Resulted 01/03/18 21:57 Blood Peripheral Anaerobic Blood Culture - Preliminary NO GROWTH IN 3 DAYS Resulted Physical Examination HEENT: Pupils round 4mm, True. ; normocephalic; atraumatic; + jaundice. NECK: Neck is supple CHEST: No shortness of breath air volumes low, diminished breath sounds CARDIAC: Regular rate and rhythm ABDOMEN: taut, mild to moderate bloating/ probable ascites; moaned and grimaced to right upper quadrant palpation, + hepatosplenomegaly; bowel sounds are soft in all four quadrants. EXTREMITIES: No clubbing, cyanosis, or edema. SKIN: Normal; no rash; + jaundice. CINNAMON GRINDER: Nonverbal noncommunicative now, randomly opens eyes, responds to painful stimuli (Scarlet Sanchez) Assessment and Plan Assessment: (1) Liver failure ICD Codes: K72.90 - Hepatic failure, unspecified without coma (2) Total bilirubin, elevated ICD Codes: R17 - Unspecified jaundice (3) Coagulopathy ICD Codes: D68.9 - Coagulation defect, unspecified (4) Hyperammonemia ICD Codes: E72.20 - Disorder of urea cycle metabolism, unspecified (5) Altered mental status ICD Codes: R41.82 - Altered mental status, unspecified (6) Elevated liver function tests ICD Codes: R79.89 - Other specified abnormal findings of blood chemistry (7) History of ETOH abuse ICD Codes: Z87.898 - Personal history of other specified conditions (8) Hepatic failure secondary to chronic hepatic disease ICD Codes: K72.90 - Hepatic failure, unspecified without coma Plan EtOH cirrhosis, end-stage liver disease, elevated ammonia levels, altered mental status, obtunded for now. When I get a lot of apathy Current labs show bilirubin at 24., LFTs 72/69, ammonia 155, PT INR 4.1, Possible history of colitis because according to ex-girlfriend CT scan done on 01/03/18 localized ascites about the liver without tracking into the abdomen or pelvis. Dilatation of the common bile duct up to 11 mm without calcified gallstones or calcification of the common bile duct. The gallbladder appears mildly distended. Mild induration of the mesenteric fat into the right upper quadrant. Palliative care saw patient today for consult 01/06/18, the patient is full code full aggressive care. Plan Continue meds lactulose PPI Protonix IV Flagyl IV Cefepime IV per attending Supportive care Monitor labs with special attention to liver enzymes , ammonia level, hemoglobin, PT INR Monitor for any acute hemorrhage Further recommendations to follow based on patient's symptoms, CT scan This patient was seen by myself and Dr. Cowart, written on his behalf (Scarlet Sanchez) Physician Comments Clinically compatible to ETOH hepatitis and not biliary. Treatment as above Will follow up with you. Thank you for the consult. (Brenda Cowart MD) Problem Qualifiers (1) Liver failure: Qualified Codes: K72.10 - Chronic hepatic failure without coma Scarlet Sanchez Jan 06, 2018 16:30 Brenda Cowart MD Jan 07, 2018 06:44
[2018-01-06] MEDS ORDERED: PHARMACY ORDERED LAB ONE (17:30)
[2018-01-06] MEDS: methylPREDNISolone SOD SUCC 40 MG/1 ML VIAL IV PUSH SCH ×2 (17:53→21:25)
[2018-01-06] MEDS: SODIUM CHLOR 0.9% 1000 ML INJ 1,000 ML IV SCH (17:53)
[2018-01-06 18:57] LABS: PROTHROMBIN TIME - PATIENT 20.1 SEC (9.8-11.6)
[2018-01-06] MEDS: POTASSIUM CHLOR 20 MEQ PREMIX 100 ML IV PRN ×4 (21:20→23:45)
[2018-01-06] MEDS: PENTOXIFYLLINE 400 MG CONTROLLED RELEASE TAB PO SCH (21:39)
[2018-01-06] MEDS: POTASSIUM CHLOR 40 MEQ PREMIX 100 ML IV SCH (23:00)
[2018-01-07] VITALS (20 sets, daily range): BP systolic 112–145; BP diastolic 69–86; PULSE 59–89; RESP 15–18; TEMP 98–98.8; O2SAT 97–100
[2018-01-07] MEDS: POTASSIUM CHLOR 20 MEQ PREMIX 100 ML IV PRN ×7 (01:05→23:40)
[2018-01-07] MEDS: metroNIDAZOLE 500 MG INJ 100 ML IV SCH ×4 (02:16→20:15)
[2018-01-07] MEDS: POTASSIUM CHLOR 40 MEQ PREMIX 100 ML IV SCH (02:37)
[2018-01-07] MEDS: RESP: ALBUTEROL 2.5 MG/IPRATROPIUM 0.5 MG NEB (SCH) INH ×4 (03:37→19:43)
[2018-01-07] MEDS: CHLORHEXIDINE GLUCONATE 2 % 1 PACK (2 CLOTHS) TOP SCH (04:00)
[2018-01-07] MEDS: PENTOXIFYLLINE 400 MG CONTROLLED RELEASE TAB PO SCH ×3 (06:00→22:00)
[2018-01-07] MEDS: INSULIN NovoLIN REGULAR SUPPLEMENTAL SCALE SQ SCH ×4 (06:00→17:52)
--- NOTE | 2018-01-07 06:03 | RADRPT ---
EXAM DATE/TIME: 01/07/2018 04:18 [facility] COMPARISON: CHEST SINGLE AP, January 03, 2018, 14:55. INDICATIONS : Evaluate for respiratory failure. MEDICAL HISTORY : None. SURGICAL HISTORY : None. ENCOUNTER: Subsequent ACUITY: 4 - 6 days PAIN SCORE: Non-responsive. LOCATION: chest FINDINGS: Patchy air space opacities diffusely involve the left lung, new. Similar but milder and more localize d airspace opacities of the right mid and lower lung developing as well. No large effusion. No pneumo thorax. Heart size stable, within normal limits. There is a nasogastric tube now present, courses into the stomach tip not included on the study. CONCLUSION: Bilateral airspace disease developing, left worse than right. Darnell Lay MD on January 07, 2018 at 6:01 Board Certified Radiologist. This report was verified electronically.
[2018-01-07] MEDS: methylPREDNISolone SOD SUCC 40 MG/1 ML VIAL IV PUSH SCH ×3 (06:24→20:16)
[2018-01-07] MEDS: SODIUM CHLOR 0.9% 1000 ML INJ 1,000 ML IV SCH ×2 (06:25→16:33)
[2018-01-07] MEDS: ALBUMIN 5% INJ 250 ML IV SCH ×2 (08:32→20:16)
[2018-01-07] MEDS: PANTOPRAZOLE SODIUM 40 MG VIAL IV PUSH SCH (08:32)
[2018-01-07] MEDS: LACTULOSE SYRUP 20 GM/30 ML CUP PO SCH ×4 (08:32→20:16)
[2018-01-07] MEDS: RIFAXIMIN 550 MG TAB PO SCH ×2 (08:32→20:16)
[2018-01-07] MEDS: ARTIFICIAL TEARS OPTH SOLN 15 ML BTL EACH EYE SCH ×3 (08:33→17:52)
[2018-01-07] MEDS: SODIUM CHLORIDE 0.9% FLUSH 10 ML FLUSH IV FLUSH SCH ×2 (08:33→20:16)
[2018-01-07] MEDS: DOCUSATE SODIUM 50 MG/SENNA 8.6 MG TAB PO SCH ×2 (08:33→20:16)
--- NOTE | 2018-01-07 08:39 | MB ---
cc: Flaco Holt MD DATE OF CONSULT: 01/06/2018 REASON FOR CONSULTATION: The patient with history of alcoholism, end stage liver disease, who presents to the emergency department with altered mental status. HISTORY OF PRESENT ILLNESS: This is a 57-year-old male who has a long history of alcohol abuse, end stage liver disease due to alcohol cirrhosis, tobacco abuse and marijuana abuse. He was brought to the emergency room under [facility] due to significant confusion, encephalopathy and refusing to be sent to the hospital. He was found to have lactic acidosis, hypokalemia with a potassium of 2.7. His ammonia level was elevated to 81. The patient is currently critically ill. He is in the Intensive Care Unit. He is unable to answer any questions. He opens his eyes, but he is nonverbal and encephalopathic. The patient was found to have elevated INR of 14.5 on 01/06/2018. He was given 8 units of FFP and he received 3 units of cryoprecipitate. The patient's platelet count has been low, in the 20,000 range, and he has also received 2 units of platelets. Hematology has been consulted to make further recommendations regarding coagulopathy in this patient who has significant liver disease. The patient was found to have hepatitis C. REVIEW OF SYSTEMS: Unable to be obtained due the patient's mental status. PAST MEDICAL HISTORY: History of alcohol abuse, history of liver disease, liver cirrhosis, history of tobacco abuse, history of marijuana abuse. PAST SURGICAL HISTORY: Unknown. MEDICATIONS: Were reviewed in the EMR. ALLERGIES: HE IS ALLERGIC TO ACETAMINOPHEN AND HYDROCODONE. PHYSICAL EXAMINATION: VITAL SIGNS: Blood pressure is 162/75, pulse is in the 60s, temperature 98.5, O2 saturations are 100%. GENERAL: Disheveled male who appears jaundiced. He is encephalopathic. He is nonresponsive. HEENT: Pupils are equal, round, reactive to light. EOMI. No thrush, no lesions. NECK: Supple. No JVD, no bruits, no lymphadenopathy. PULMONARY: Chest is clear to auscultation bilaterally. CARDIOVASCULAR: S1, S2, regular rate and rhythm. ABDOMEN: Somewhat distended. Bowel sounds are absent. EXTREMITIES: Mildly edematous. No cyanosis. NEUROLOGIC: He is encephalopathic. Does not follow commands. Occasionally opens his eyes. LABORATORY DATA: WBC 8.9, hemoglobin 11.5, platelet count is 28. INR is 2. Fibrinogen is 163. Sodium 149, potassium 2.1, chloride 116, BUN 32, creatinine 1.6. GFR 44. Lactic acid 5.4. Calcium 7.5, phosphorus 1.8, magnesium 1.6, total bilirubin 24, direct bilirubin 18.1, AST 72, ALT 69, alkaline phosphatase 87, ammonia level 155. Total protein 6.2, albumin 2.3. ASSESSMENT AND PLAN: This is a 57-year-old male who has a history of alcohol abuse, end stage liver disease, liver cirrhosis, who was brought to the emergency room with encephalopathy. According to the report, the patient had drank a gallon of whiskey. 1. Coagulopathy in patient with end stage liver disease. Due to severe liver dysfunction, he is unable to make clotting factors. We will monitor his INR and fibrinogen on a daily basis. FFP or cryoprecipitate will be given on an as needed basis. If his fibrinogen is less than 150 and he is not bleeding, we will transfuse 2 units of cryoprecipitate. We will given vitamin K as needed to keep his INR less than 1.7. However, it will be difficult in this patient who has poor synthetic function of the liver. 2. Macrocytic anemia with macrocytosis, likely from alcoholism. GI is following the patient to assess for any GI causes of anemia. I would recommend obtaining a stool Hemoccult. 3. Thrombocytopenia due to liver disease and sepsis. Check LDH and haptoglobin. Transfuse to keep platelet count greater than 30,000 in this acutely ill patient who is at a high risk for bleeding. 4. Encephalopathy secondary to alcoholic liver disease. Management per primary team. 5. Multiple electrolyte abnormalities, including hypernatremia, hypokalemia. Management per primary team. 6. Elevated liver functions. AST 72, ALT 69. 7. Hyperbilirubinemia due to liver dysfunction. Overall, this patient has very poor prognosis. We will continue to follow this patient along. MD CHEPE Arshad/PRAVEEN , 10:40 PM , 11:14 PM [facility]ITALMaricel
[2018-01-07 11:02] LABS: PROTHROMBIN TIME - PATIENT 27.4 SEC (9.8-11.6)
[2018-01-07 11:03] LABS: INTERNATIONAL NORMALIZED RATIO 2.7 RATIO
--- NOTE | 2018-01-07 11:17 | HHI.GIFU ---
Subjective Remarks Patient has eyes closed resting in the bed but is moving his extremities more so today Groans no audible conversation Skin very pale jeanette Heart rate 84 regular rhythm Has Meadows catheter and rectal Meadows (Scarlet Sanchez) Objective Vitals I&O Vital Signs Date Time Temp Pulse Resp B/P (MAP) Pulse Ox O2 Delivery O2 Flow Rate FiO2 01/07/18 10:00 79 01/07/18 09:00 83 01/07/18 08:00 81 01/07/18 08:00 98.1 81 17 116/71 (86) 100 01/07/18 07:50 98 Nasal Cannula 2.00 01/07/18 07:00 72 01/07/18 06:00 78 18 143/77 (99) 99 01/07/18 06:00 78 01/07/18 04:00 77 01/07/18 04:00 98.0 77 16 116/72 (87) 97 01/07/18 03:38 100 Nasal Cannula 2.00 01/07/18 02:00 59 01/07/18 02:00 98.1 59 15 145/86 (105) 100 01/07/18 00:01 74 01/07/18 00:01 74 16 140/75 (96) 99 01/06/18 22:00 74 16 143/79 (100) 92 01/06/18 22:00 74 01/06/18 20:08 99 Nasal Cannula 2.00 01/06/18 20:00 98.4 65 18 147/84 (105) 100 01/06/18 20:00 65 01/06/18 18:00 97 01/06/18 17:30 72 23 130/80 (97) 98 01/06/18 17:00 69 21 138/78 (98) 100 01/06/18 16:48 98.2 73 22 125/75 99 01/06/18 16:30 71 21 125/75 (92) 98 01/06/18 16:00 72 01/06/18 16:00 98.2 72 20 123/75 (91) 99 01/06/18 15:00 60 22 144/81 (102) 98 01/06/18 14:31 62 23 142/84 (103) 100 01/06/18 14:26 98.5 65 23 162/75 100 01/06/18 14:01 162/75 (104) 96 01/06/18 14:00 85 01/06/18 14:00 85 30 95 01/06/18 13:30 63 22 153/85 (107) 99 01/06/18 13:00 64 21 149/94 (112) 99 01/06/18 12:30 61 25 135/85 (102) 99 01/06/18 12:25 97.8 61 22 135/85 99 01/06/18 12:01 97.8 51 16 126/70 (88) 96 01/06/18 12:00 53 01/06/18 12:00 53 16 95 01/06/18 11:30 50 17 128/68 (88) 95 I/O 01/06/18 01/06/18 01/06/18 01/07/18 01/07/18 01/07/18 07:00 15:00 23:00 07:00 15:00 23:00 Intake Total 1570 ml 1493 ml 1164 ml 150 ml Output Total 4250 ml 3550 ml 4700 ml Balance -2680 ml 1493 ml -2386 ml -4550 ml IV Total 965 ml 501 ml 605 ml 100 ml FFP 605 ml 358 ml 206 ml Platelets 355 ml 192 ml Cryoprecipitate 219 ml Blood Product IV Normal Saline Flush 60 ml 41 ml Tube Irrigant 120 ml 50 ml Output Urine Total 4250 ml 3450 ml 3700 ml Stool Total 100 ml 1000 ml # Bowel Movements 0 4 Laboratory Laboratory Tests Test 01/06/18 11:23 01/06/18 17:17 01/06/18 17:25 01/06/18 17:45 Phosphorus Level 1.8 Lactic Acid Level 5.4 Blood Gas Puncture Site LT RADIAL Blood Gas Patient Temperature 98.6 Blood Gas HCO3 20 Blood Gas Base Excess -3.0 Blood Gas Oxygen Saturation 96 Arterial Blood pH 7.52 Arterial Blood Partial Pressure CO2 24 Arterial Blood Partial Pressure O2 95 Arterial Blood Oxygen Content 13.9 Arterial Blood Carboxyhemoglobin 1.7 Arterial Blood Methemoglobin 0.5 Blood Gas Hemoglobin 10.2 Oxygen Delivery Device NASAL CANNULA Blood Gas Liter Flow 2 Haptoglobin 31 Potassium Level 1.7 Vancomycin Level Trough 14.4 Test 01/06/18 18:17 01/07/18 05:50 01/07/18 10:26 Prothrombin Time 20.1 27.4 Prothromb Time International Ratio 2.0 2.7 Blood Gas Puncture Site LT BRACHIAL Blood Gas Patient Temperature 98.6 Blood Gas HCO3 20 Blood Gas Base Excess -3.6 Blood Gas Oxygen Saturation 94 Arterial Blood pH 7.46 Arterial Blood Partial Pressure CO2 28 Arterial Blood Partial Pressure O2 82 Arterial Blood Oxygen Content 14.4 Arterial Blood Carboxyhemoglobin 1.7 Arterial Blood Methemoglobin 0.5 Blood Gas Hemoglobin 10.9 Oxygen Delivery Device NASAL CANNULA Blood Gas Liter Flow 2 Fibrinogen 203 Ammonia 45 Date/Time Source Procedure Growth Status 01/03/18 21:57 Blood Peripheral Aerobic Blood Culture - Preliminary NO GROWTH IN 4 DAYS Resulted 01/03/18 21:57 Blood Peripheral Anaerobic Blood Culture - Preliminary NO GROWTH IN 4 DAYS Resulted Imaging Last Impressions Chest X-Ray 01/07/18 0600 Signed Impressions: Service Date/Time: Sunday, January 07, 2018 04:18 - CONCLUSION: Bilateral airspace disease developing, left worse than right. Darnell Lay MD Abdomen X-Ray 01/04/18 0000 Signed Impressions: Service Date/Time: Thursday, January 04, 2018 09:46 - CONCLUSION: 1. Suction type nasoenteric catheter tip in the distal stomach near the duodenal bulb. Stiven Mathis MD Head CT 01/03/18 1437 Signed Impressions: Service Date/Time: Wednesday, January 03, 2018 15:17 - CONCLUSION: Negative for an acute process. Sid Chilel MD FACR Shoulder X-Ray 01/03/18 0000 Signed Impressions: Service Date/Time: Wednesday, January 03, 2018 15:00 - CONCLUSION: Degenerative changes of the a.c. joint. No acute abnormality. Ricky Gómez Jr., MD Abdomen/Pelvis CT 01/03/18 0000 Signed Impressions: Service Date/Time: Wednesday, January 03, 2018 20:22 - CONCLUSION: 1. Localized ascites about the liver without tracking into the abdomen or pelvis. 2. Dilation of the common bile duct up to 11 mm without calcified gallstones or calcifications in the common bile duct. The gallbladder appears mildly distended. 3. Mild induration of the mesenteric fat in the right upper quadrant. Ricky Milan MD Physical Exam HEENT: Eyes closed open randomly; normocephalic; atraumatic; + jaundice. NECK: Neck is supple, CHEST: Diminished breath sounds but no audible rhonchi CARDIAC: Regular rate and rhythm , 84 heart rate ABDOMEN: taut, diffuse tenderness to palpation , still has mild distention no hepatosplenomegaly; bowel sounds are present in all four quadrants. EXTREMITIES: No clubbing, cyanosis, or edema., Soft restraints 4 SKIN: jeanette, dry; no rash; + jaundice. MOTORMAN/WOMAN, drowsy moans to painful stimuli, moving extremities more today nonpurposeful, obtunded (Scarlet Sanchez) Assessment and Plan Assessment: (1) Liver failure ICD Codes: K72.90 - Hepatic failure, unspecified without coma (2) Total bilirubin, elevated ICD Codes: R17 - Unspecified jaundice (3) Coagulopathy ICD Codes: D68.9 - Coagulation defect, unspecified (4) Hyperammonemia ICD Codes: E72.20 - Disorder of urea cycle metabolism, unspecified (5) Altered mental status ICD Codes: R41.82 - Altered mental status, unspecified (6) Elevated liver function tests ICD Codes: R79.89 - Other specified abnormal findings of blood chemistry (7) History of ETOH abuse ICD Codes: Z87.898 - Personal history of other specified conditions (8) Hepatic failure secondary to chronic hepatic disease ICD Codes: K72.90 - Hepatic failure, unspecified without coma Plan EtOH cirrhosis, end-stage liver disease, elevated ammonia levels, altered mental status, obtunded for now. When I get a lot of apathy Current labs show bilirubin at 24., LFTs 72/69, ammonia 155, PT INR 4.1, Possible history of colitis because according to ex-girlfriend EtOH hepatitis, not biliary. CT scan done on 01/03/18 localized ascites about the liver without tracking into the abdomen or pelvis. Dilatation of the common bile duct up to 11 mm without calcified gallstones or calcification of the common bile duct. The gallbladder appears mildly distended. Mild induration of the mesenteric fat into the right upper quadrant. Palliative care saw patient today for consult 01/06/18, the patient is full code full aggressive care. Current hemoglobin 11.5 Diarrhea thin brown bilious color dark via rectal Meadows still having moderate amounts of stool Plan Continue meds lactulose Trental SR/ Pentoxifylline PPI Protonix IV Flagyl IV Steroids IV Supportive care, continue to monitor patient's response to meds. High risk for decline Monitor labs with special attention to liver enzymes , ammonia level, hemoglobin, PT INR Monitor for any acute hemorrhage Further recommendations to follow based on patient's symptoms This patient was seen by myself and Dr. Cowart, written on his behalf (Scarlet Sanchez) Physician Comments As above, minimal improvement in his condition. Continue current treatment plan. (Brenda Cowart MD) Problem Qualifiers (1) Liver failure: Qualified Codes: K72.10 - Chronic hepatic failure without coma Scarlet Sanchez Jan 07, 2018 11:17 Brenda Cowart MD Jan 07, 2018 15:13
[2018-01-07 11:27] LABS: ALBUMIN 2.6 GM/DL (3.4-5.0); ALT (GPT) 60 U/L (12-78); AST (GOT) 68 U/L (15-37); BICARBONATE 20.3 MEQ/L (21.0-32.0); BLOOD UREA NITROGEN 25 MG/DL (7-18); CALCIUM 8.3 MG/DL (8.5-10.1); CHLORIDE 120 MEQ/L (98-107); CREATININE 1.46 MG/DL (0.60-1.30); GLOMERULAR FILTRATION RATE 49 ML/MIN (>89); GLUCOSE,RANDOM 109 MG/DL (74-106); MAGNESIUM 1.5 MG/DL (1.5-2.5); PHOSPHORUS 0.2 MG/DL (2.5-4.9); SODIUM (NA) 154 MEQ/L (136-145)
[2018-01-07 11:45] LABS: ALKALINE PHOSPHATASE 84 U/L (45-117); TOTAL BILIRUBIN ADULT 24.6 MG/DL (0.2-1.0); TOTAL PROTEIN 6.3 GM/DL (6.4-8.2)
[2018-01-07] MEDS: CEFEPIME INJ 2,000 MG in SODIUM CHLORIDE 0.9% INJ 100 ML IV SCH ×2 (11:47→23:40)
[2018-01-07] MEDS: VANCOMYCIN INJ 1,500 MG in SODIUM CHLORID 0.9% 500 ML INJ 500 ML IV SCH (11:48)
--- NOTE | 2018-01-07 12:27 | PD.ONC.PN ---
Subjective Subjective Remarks Afebrile overnight. Patient non-verbal. No bleeding from lines. Objective Data Date Time Temp Pulse Resp B/P (MAP) Pulse Ox O2 Delivery O2 Flow Rate FiO2 01/07/18 12:00 98.1 81 17 117/73 (88) 100 01/07/18 12:00 81 01/07/18 10:00 79 01/07/18 09:00 83 01/07/18 08:00 81 01/07/18 08:00 98.1 81 17 116/71 (86) 100 01/07/18 07:50 98 Nasal Cannula 2.00 01/07/18 07:00 72 01/07/18 06:00 78 18 143/77 (99) 99 01/07/18 06:00 78 01/07/18 04:00 77 01/07/18 04:00 98.0 77 16 116/72 (87) 97 01/07/18 03:38 100 Nasal Cannula 2.00 01/07/18 02:00 59 01/07/18 02:00 98.1 59 15 145/86 (105) 100 01/07/18 00:01 74 01/07/18 00:01 74 16 140/75 (96) 99 01/06/18 22:00 74 16 143/79 (100) 92 01/06/18 22:00 74 01/06/18 20:08 99 Nasal Cannula 2.00 01/06/18 20:00 98.4 65 18 147/84 (105) 100 01/06/18 20:00 65 01/06/18 18:00 97 01/06/18 17:30 72 23 130/80 (97) 98 01/06/18 17:00 69 21 138/78 (98) 100 01/06/18 16:48 98.2 73 22 125/75 99 01/06/18 16:30 71 21 125/75 (92) 98 01/06/18 16:00 72 01/06/18 16:00 98.2 72 20 123/75 (91) 99 01/06/18 15:00 60 22 144/81 (102) 98 01/06/18 14:31 62 23 142/84 (103) 100 01/06/18 14:26 98.5 65 23 162/75 100 01/06/18 14:01 162/75 (104) 96 01/06/18 14:00 85 01/06/18 14:00 85 30 95 01/06/18 13:30 63 22 153/85 (107) 99 01/06/18 13:00 64 21 149/94 (112) 99 01/06/18 12:30 61 25 135/85 (102) 99 01/06/18 12:25 97.8 61 22 135/85 99 01/07/18 01/07/18 01/07/18 07:00 15:00 23:00 Intake Total 150 ml Output Total 4700 ml Balance -4550 ml Result Diagram: 01/06/18 0408 01/07/18 1026 Laboratory Results Laboratory Tests Test 01/06/18 17:17 01/06/18 17:25 01/06/18 17:45 01/06/18 18:17 Lactic Acid Level 5.4 mmol/L Blood Gas Puncture Site LT RADIAL Blood Gas Patient Temperature 98.6 Blood Gas HCO3 20 mmol/L Blood Gas Base Excess -3.0 mmol/L Blood Gas Oxygen Saturation 96 % Arterial Blood pH 7.52 Arterial Blood Partial Pressure CO2 24 mmHg Arterial Blood Partial Pressure O2 95 mmHg Arterial Blood Oxygen Content 13.9 Vol % Arterial Blood Carboxyhemoglobin 1.7 % Arterial Blood Methemoglobin 0.5 % Blood Gas Hemoglobin 10.2 G/DL Oxygen Delivery Device NASAL CANNULA Blood Gas Liter Flow 2 L/M Haptoglobin 31 MG/DL Potassium Level 1.7 MEQ/L Vancomycin Level Trough 14.4 MCG/ML Prothrombin Time 20.1 SEC Prothromb Time International Ratio 2.0 RATIO Test 01/07/18 05:50 01/07/18 10:26 Blood Gas Puncture Site LT BRACHIAL Blood Gas Patient Temperature 98.6 Blood Gas HCO3 20 mmol/L Blood Gas Base Excess -3.6 mmol/L Blood Gas Oxygen Saturation 94 % Arterial Blood pH 7.46 Arterial Blood Partial Pressure CO2 28 mmHg Arterial Blood Partial Pressure O2 82 mmHg Arterial Blood Oxygen Content 14.4 Vol % Arterial Blood Carboxyhemoglobin 1.7 % Arterial Blood Methemoglobin 0.5 % Blood Gas Hemoglobin 10.9 G/DL Oxygen Delivery Device NASAL CANNULA Blood Gas Liter Flow 2 L/M Prothrombin Time 27.4 SEC Prothromb Time International Ratio 2.7 RATIO Fibrinogen 203 mg/dL Blood Urea Nitrogen 25 MG/DL Creatinine 1.46 MG/DL Random Glucose 109 MG/DL Total Protein 6.3 GM/DL Albumin 2.6 GM/DL Calcium Level 8.3 MG/DL Phosphorus Level 0.2 MG/DL Magnesium Level 1.5 MG/DL Alkaline Phosphatase 84 U/L Aspartate Amino Transf (AST/SGOT) 68 U/L Alanine Aminotransferase (ALT/SGPT) 60 U/L Lactate Dehydrogenase 342 U/L Total Bilirubin 24.6 MG/DL Sodium Level 154 MEQ/L Potassium Level 3.1 MEQ/L Chloride Level 120 MEQ/L Carbon Dioxide Level 20.3 MEQ/L Anion Gap 14 MEQ/L Estimat Glomerular Filtration Rate 49 ML/MIN Lactic Acid Level 5.8 mmol/L Ammonia 45 MCMOL/L Imaging Studies Last 24 hours Impressions Chest X-Ray 01/07/18 0600 Signed Impressions: Service Date/Time: Sunday, January 07, 2018 04:18 - CONCLUSION: Bilateral airspace disease developing, left worse than right. Darnell Lay MD Administered Medications Medications (Trade) Dose Ordered Sig/Stone Route PRN Reason Start Time Stop Time Status Last Admin Dose Admin Sodium Chloride 1,000 ml @ 84 mls/hr [id number] IV 01/03/18 19:00 01/07/18 06:25 Sodium Chloride (NS Flush) 2 ml BID IV FLUSH 01/03/18 21:00 01/07/18 08:33 Pantoprazole Sodium (Protonix Inj) 40 mg DAILY IV PUSH 01/04/18 09:00 01/07/18 08:32 Lorazepam (Ativan Inj) 1 mg Q1H PRN IV PUSH Agitation/Sedation 01/03/18 18:45 Future Hold 01/05/18 09:22 Artificial Tears (Tears Naturale Opth Soln) 1 drop TID EACH EYE 01/04/18 09:00 01/07/18 12:11 Albuterol/ Ipratropium (Duoneb Neb) 1 ampule Q6HR NEB INH 01/03/18 22:00 01/07/18 07:50 Miscellaneous Information 1 [id number] XX 01/03/18 18:45 01/03/18 18:45 Chlorhexidine Gluconate (Chlorhexidine 2% Cloth) 3 pack Taper DAILY@04 TOP 01/04/18 04:00 12/31/18 03:59 01/07/18 04:00 Senna/Docusate Sodium (Christine-Colace) 1 tab BID PO 01/03/18 21:00 01/06/18 21:24 Cefepime HCl 2000 mg/Sodium Chloride 100 ml @ 200 mls/hr Q12H IV 01/03/18 23:00 01/07/18 11:47 Metronidazole 100 ml @ 100 mls/hr Q6H IV 01/03/18 20:00 01/07/18 08:32 Lactulose (Lactulose Liq) 30 ml QID PO 01/03/18 21:00 01/07/18 12:11 Rifaximin (Xifaxan) 550 mg BID PO 01/03/18 21:00 01/07/18 08:32 Vancomycin HCl 1500 mg/Sodium Chloride 515 ml @ 250 mls/hr Q18H IV 01/04/18 12:00 01/07/18 11:48 Dexmedetomidine HCl 1000 mcg/ Sodium Chloride 250 ml @ 3.75 mls/hr TITRATE PRN IV SEDATION 01/05/18 17:15 Future Hold 01/06/18 03:55 Albumin Human 250 ml @ 250 mls/hr Q12H IV 01/05/18 21:00 01/07/18 08:32 Multivitamins 10 ml/Folic Acid 1 mg/Sodium Chloride 510.2 ml @ 125 mls/hr Q24H IV 01/05/18 22:00 01/10/18 21:59 01/06/18 21:38 Potassium Chloride 100 ml @ 50 mls/hr Q2H PRN IV For Potassium 2.8 - 3.2 mEq/L 01/06/18 08:00 01/07/18 02:36 Methylprednisolone Sodium Succinate (SoluMEDROL INJ) 40 mg Q8HR IV PUSH 01/06/18 17:15 01/07/18 06:24 Objective Remarks GENERAL: middle aged male, lying supine at 45 [address] in bed. SKIN: Warm and dry. +jaundiced HEAD: Normocephalic. EYES: ++ scleral icterus. No injection or drainage. NECK: Supple, trachea midline CARDIOVASCULAR: +S1/S2 RESPIRATORY: anterior sunshine with scattered rhonchi. on O2 via [place] GASTROINTESTINAL: Abdomen soft, non-tender, nondistended. EXTREMITIES: No cyanosis Assessment/Plan Problem List: (1) Coagulopathy ICD Codes: D68.9 - Coagulation defect, unspecified Plan: --Coagulopathy in patient with end stage liver disease. --Due to severe liver dysfunction, he is unable to make clotting factors. --monitor his INR and fibrinogen daily. --if fibrinogen is less than 150, transfuse 2 units of cryoprecipitate. --give vitamin K as needed to keep his INR less than 1.7. -->started on Vitamin K 5mg SQ daily on 01/07 (2) Thrombocytopenia ICD Codes: D69.6 - Thrombocytopenia, unspecified Plan: --due to liver disease and sepsis. --haptoglobin low normal, LDH elevated. --transfuse to keep platelet count greater than 30,000 in this acutely ill patient who is at a high risk for bleeding. (3) Macrocytic anemia ICD Codes: D53.9 - Nutritional anemia, unspecified Plan: -- likely from alcoholism. --GI following. --stool Hemoccult pending. (4) Encephalopathy ICD Codes: G93.40 - Encephalopathy, unspecified Plan: -- secondary to alcoholic liver disease. Management per primary team. Assessment 57y/o admitted as trevizo act. 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 --hepatitis C Plan 1. give vitamin K 5mg SQ daily 2. monitor CBC, no platelets transfusion needed at present. 3. continue supportive care Attending Statement The exam, history, and the medical decision-making described in the above note were completed with the assistance of the mid-level provider. I reviewed and agree with the findings presented. I attest that I had a [id number] encounter with the patient on the same day, and personally performed and documented my assessment and findings in the medical record. remians critically ill encephalopathic end stage liver disease coagulopathy daily INR and fibrinogen transfuse cryoprecipitate for fibrinogen less than 150 patient's brother was present during rounds discussed prognosis which is poor Ani Garg Jan 07, 2018 12:26 Flaco Holt MD Jan 07, 2018 21:09
[2018-01-07 12:37] LABS: AUTOMATED NEUTROPHIL # 15.8 TH/MM3 (1.8-7.7); BASOPHIL % 0.1 % (0.0-2.0); HEMATOCRIT 33.8 % (39.0-51.0); HEMOGLOBIN 11.8 GM/DL (13.0-17.0); LYMPH % 1.8 % (9.0-44.0); LYMPHOCYTE # 0.3 TH/MM3 (1.0-4.8); MEAN CELL VOLUME 106.9 FL (80.0-100.0); MEAN CORPUSCULAR HEMOGLOBIN 37.3 PG (27.0-34.0); MEAN CORPUSCULAR HGB CONC 34.9 % (32.0-36.0); MEAN PLATELET VOLUME 9.5 FL (7.0-11.0); MONO % 4.5 % (0.0-8.0); MONOCYTE # 0.8 TH/MM3 (0-0.9); NEUT % 93.6 % (16.0-70.0); PLATELET COUNT 55 TH/MM3 (150-450); RED BLOOD COUNT 3.16 MIL/MM3 (4.50-5.90); RED CELL DISTRIBUTION WIDTH 16.2 % (11.6-17.2); WHITE BLOOD COUNT 16.9 TH/MM3 (4.0-11.0)
[2018-01-07 13:23] LABS: BANDS 25 % (0-6); CORRECTED NUCLEATED RBC 1 /100 WBC (0-0); NEUTROPHIL # MANUAL DIFF 16.9 TH/MM3 (1.8-7.7); NUCLEATED RED BLOOD CELL 1 (0-0); POLYS (SEG NEUTROPHILS) 75 % (16-70)
[2018-01-07 13:24] LABS: TOXIC GRANULATION 1+ (NORMAL)
--- NOTE | 2018-01-07 13:25 | HHI.HCPN ---
Reason for visit a. To assist with evaluation and management of symptoms including: altered mental status, agitation b. To assist medical decision maker(s) with: better understanding of current medical conditions; weighing benefits/burdens of medical treatment options; making medical treatment decisions. Subjective/Interval History Patient seen and examined in his room in ICU the presence of his brother and a friend. Patient still obtunded, no eye opening, in mild discomfort and restless. Patient spontaneously morphine all 4 extremities weakly but not following commands. Patient remains off sedation. Patient is afebrile, vital signs stable. O2 saturation high 90s on 2 L nasal cannula. Hepatitis panel collected 01/04/[address] GI Dr. Cowart consulted on 01/06/18 for medical management of a patient with cirrhosis and end- stage liver disease, recommended continuing current treatment. Laboratory workup today revealed PT 27.4, INR 2.7, fibrinogen 203, sodium 154, potassium 3.1, BUN/creatinine 25/1.46, lactic acid 5.8, AST 68, ALT 60, ammonia level 45. Chest x-ray today revealing bilateral airspace disease developing, left worse than right. Discussed with patient`s brother Gerardo Le at length who states that he will update patient`s children. Updated patient's brother on patient's current status and medical treatment that has been rendered since admission. Also updated on previous conversation with his sister yesterday regarding who patient `s legal decision maker would be. Patients` brother stated that his sister was unable to locate POA papers and they are unsure if they have them here or patient left them in [place]. Explained to him what the [place] requires and notified him that one of patient`s adult daughters has opted out of decision making for her father. Patients`s brother will work on obtaining contact information for the other 2 daughters and he also mentioned that one of patient` s daughter Rachel Le has a history of traumatic brain injury and will not be able to participate in any medical decision making. Patient`s brother stated that he may need to sit down with his family and further discuss code status given patient`s current medical condition and diagnosis. Patient`s brother seems not agreeable with having patient as a full code but wants to talk to his family first before any changes are made. Anticipatory guidance provided and patients` brother requested guidance and information on how family would proceed if patient does not improve medically. Introduced hospice philosophy and benefits. Patient`s brother appreciative of palliative care visit and update. Case discussed with Dr. Kate and bedside RN Majo. . Family/friend interactions Lengthy conversation with patient's brother Gerardo Le libertad bedside. . Advance Directives Durable Power of Department Chair: Completed, but not made available Advance Directive Specifics Health Care Surrogate(s): -Healthcare proxy's J-rfnzxas-Vmcnzpm-Mike [phone] cell/ [phone] home- Opted out of decision making as health care proxy Daughter- Mimi Ramos Daughter-Ivana Rios . Objective Vital Signs Date Time Temp Pulse Resp B/P (MAP) Pulse Ox O2 Delivery O2 Flow Rate FiO2 01/07/18 12:00 98.1 81 17 117/73 (88) 100 01/07/18 12:00 81 01/07/18 10:00 79 01/07/18 09:00 83 01/07/18 08:00 81 01/07/18 08:00 98.1 81 17 116/71 (86) 100 01/07/18 07:50 98 Nasal Cannula 2.00 01/07/18 07:00 72 01/07/18 06:00 78 18 143/77 (99) 99 01/07/18 06:00 78 01/07/18 04:00 77 01/07/18 04:00 98.0 77 16 116/72 (87) 97 01/07/18 03:38 100 Nasal Cannula 2.00 01/07/18 02:00 59 01/07/18 02:00 98.1 59 15 145/86 (105) 100 01/07/18 00:01 74 01/07/18 00:01 74 16 140/75 (96) 99 01/06/18 22:00 74 16 143/79 (100) 92 01/06/18 22:00 74 01/06/18 20:08 99 Nasal Cannula 2.00 01/06/18 20:00 98.4 65 18 147/84 (105) 100 01/06/18 20:00 65 01/06/18 18:00 97 01/06/18 17:30 72 23 130/80 (97) 98 01/06/18 17:00 69 21 138/78 (98) 100 01/06/18 16:48 98.2 73 22 125/75 99 01/06/18 16:30 71 21 125/75 (92) 98 01/06/18 16:00 72 01/06/18 16:00 98.2 72 20 123/75 (91) 99 01/06/18 15:00 60 22 144/81 (102) 98 01/06/18 14:31 62 23 142/84 (103) 100 01/06/18 14:26 98.5 65 23 162/75 100 01/06/18 14:01 162/75 (104) 96 01/06/18 14:00 85 01/06/18 14:00 85 30 95 01/06/18 13:30 63 22 153/85 (107) 99 01/06/18 13:00 64 21 149/94 (112) 99 Intake & Output 01/07/18 01/07/18 07:00 19:00 Intake Total 500 ml Output Total 4700 ml Balance -4200 ml IV Total 450 ml Tube Irrigant 50 ml Output Urine Total 3700 ml Stool Total 1000 ml Physical Exam CONSTITUTIONAL/GENERAL: This is a 57 yo male who appears older than is age, restless TUBES/LINES/DRAINS: Meadows catheter, PIV, SCDs, NG tube, rectal bag SKIN: Jaundice, Dry scaly skin, Ecchymoses on upper extremities. No wounds seen anteriorly. Skin temperature appropriate. Not diaphoretic. HEAD: Atraumatic. Normocephalic. EYES: Pupils equal and round and reactive. Extraocular motions intact. Scleral icterus. No injection or drainage. Fundi not examined. ENT: Unable to assess his hearing. Nose without bleeding or purulent drainage. Edentulous. NECK: Trachea midline. Supple, nontender. CARDIOVASCULAR: Regular rate and rhythm without murmurs, gallops, or rubs. No JVD. Peripheral pulses symmetric. RESPIRATORY/CHEST: Symmetric, unlabored respirations. Clear to auscultation. Breath sounds equal bilaterally. No wheezes, rales, or rhonchi. GASTROINTESTINAL: Abdomen soft, non-tender, distended. No guarding. Bowel sounds present. Liquid stool in rectal bag GENITOURINARY: Without palpable bladder distension. Meadows catheter in place. MUSCULOSKELETAL: Extremities without clubbing, cyanosis, or edema. No joint tenderness or effusion noted. No calf tenderness. No mottling or clubbing. NEUROLOGICAL: Currently Obtunded, not verbalizing or following commands. Soft moaning. Motor and sensory grossly within normal limits. Moves all extremities. PSYCHIATRIC: Obtunded. Diagnostic Tests Laboratory Laboratory Tests Test 01/04/18 18:33 01/05/18 04:06 01/06/18 04:08 01/06/18 05:10 Potassium Level 3.0 MEQ/L (3.5-5.1) 2.2 MEQ/L (3.5-5.1) 2.1 MEQ/L (3.5-5.1) Lactic Acid Level 2.5 mmol/L (0.4-2.0) White Blood Count 7.3 TH/MM3 (4.0-11.0) 8.9 TH/MM3 (4.0-11.0) Red Blood Count 2.94 MIL/MM3 (4.50-5.90) 3.09 MIL/MM3 (4.50-5.90) Hemoglobin 10.8 GM/DL (13.0-17.0) 11.5 GM/DL (13.0-17.0) Hematocrit 30.8 % (39.0-51.0) 32.5 % (39.0-51.0) Mean Corpuscular Volume 104.7 FL (80.0-100.0) 105.3 FL (80.0-100.0) Mean Corpuscular Hemoglobin 36.8 PG (27.0-34.0) 37.2 PG (27.0-34.0) Mean Corpuscular Hemoglobin Concent 35.2 % (32.0-36.0) 35.4 % (32.0-36.0) Red Cell Distribution Width 16.1 % (11.6-17.2) 16.6 % (11.6-17.2) Platelet Count 23 TH/MM3 (150-450) 28 TH/MM3 (150-450) Mean Platelet Volume 10.3 FL (7.0-11.0) 11.0 FL (7.0-11.0) Neutrophils (%) (Auto) 81.2 % (16.0-70.0) 84.8 % (16.0-70.0) Lymphocytes (%) (Auto) 6.5 % (9.0-44.0) 5.8 % (9.0-44.0) Monocytes (%) (Auto) 10.7 % (0.0-8.0) 7.2 % (0.0-8.0) Eosinophils (%) (Auto) 1.4 % (0.0-4.0) 1.8 % (0.0-4.0) Basophils (%) (Auto) 0.2 % (0.0-2.0) 0.4 % (0.0-2.0) Neutrophils # (Auto) 5.9 TH/MM3 (1.8-7.7) 7.5 TH/MM3 (1.8-7.7) Lymphocytes # (Auto) 0.5 TH/MM3 (1.0-4.8) 0.5 TH/MM3 (1.0-4.8) Monocytes # (Auto) 0.8 TH/MM3 (0-0.9) 0.6 TH/MM3 (0-0.9) Eosinophils # (Auto) 0.1 TH/MM3 (0-0.4) 0.2 TH/MM3 (0-0.4) Basophils # (Auto) 0.0 TH/MM3 (0-0.2) 0.0 TH/MM3 (0-0.2) CBC Comment AUTO DIFF AUTO DIFF Differential Comment AUTO DIFF CONFIRMED FINAL DIFF MANUAL Platelet Estimate LOW (NORMAL) LOW (NORMAL) Platelet Morphology Comment NORMAL (NORMAL) ENLARGED (NORMAL) Nathaniel Cells 1+ (NORMAL) Prothrombin Time 19.2 SEC (9.8-11.6) 144.1 SEC (9.8-11.6) 41.2 SEC (9.8-11.6) Prothromb Time International Ratio 1.9 RATIO 14.5 RATIO 4.1 RATIO Blood Urea Nitrogen 35 MG/DL (7-18) 32 MG/DL (7-18) Creatinine 1.66 MG/DL (0.60-1.30) 1.60 MG/DL (0.60-1.30) Random Glucose 86 MG/DL (74-106) 98 MG/DL (74-106) Total Protein 5.5 GM/DL (6.4-8.2) 6.2 GM/DL (6.4-8.2) Calcium Level 7.4 MG/DL (8.5-10.1) 7.5 MG/DL (8.5-10.1) Phosphorus Level 1.2 MG/DL (2.5-4.9) 1.3 MG/DL (2.5-4.9) Magnesium Level 2.0 MG/DL (1.5-2.5) 1.6 MG/DL (1.5-2.5) Sodium Level 145 MEQ/L (136-145) 149 MEQ/L (136-145) Chloride Level 114 MEQ/L (98-107) 116 MEQ/L (98-107) Carbon Dioxide Level 21.0 MEQ/L (21.0-32.0) 21.0 MEQ/L (21.0-32.0) Anion Gap 10 MEQ/L (5-15) 12 MEQ/L (5-15) Estimat Glomerular Filtration Rate 43 ML/MIN (>89) 44 ML/MIN (>89) Protein Corrected Calcium 8.3 MG/DL (8.5-10.1) Ammonia 144 MCMOL/L (11-32) 155 MCMOL/L (11-32) Differential Total Cells Counted 100 Neutrophils % (Manual) 84 % (16-70) Band Neutrophils % 4 % (0-6) Lymphocytes % 1 % (9-44) Monocytes % 9 % (0-8) Neutrophils # (Manual) 8.0 TH/MM3 (1.8-7.7) Myelocytes 1 % (0-0) Promyelocytes 1 % (0-0) Albumin 2.3 GM/DL (3.4-5.0) Alkaline Phosphatase 87 U/L (45-117) Aspartate Amino Transf (AST/SGOT) 72 U/L (15-37) Alanine Aminotransferase (ALT/SGPT) 69 U/L (12-78) Total Bilirubin 24.0 MG/DL (0.2-1.0) Direct Bilirubin 18.1 MG/DL (0.0-0.2) Test 01/06/18 08:25 01/06/18 11:23 01/06/18 17:17 01/06/18 17:25 Fibrinogen 163 mg/dL (227-377) Phosphorus Level 1.8 MG/DL (2.5-4.9) Lactic Acid Level 5.4 mmol/L (0.4-2.0) Blood Gas Puncture Site LT RADIAL Blood Gas Patient Temperature 98.6 Blood Gas HCO3 20 mmol/L (22-26) Blood Gas Base Excess -3.0 mmol/L (-2-2) Blood Gas Oxygen Saturation 96 % (90-100) Arterial Blood pH 7.52 (7.380-7.420) Arterial Blood Partial Pressure CO2 24 mmHg (38-42) Arterial Blood Partial Pressure O2 95 mmHg (61-120) Arterial Blood Oxygen Content 13.9 Vol % (12.0-20.0) Arterial Blood Carboxyhemoglobin 1.7 % (0-4) Arterial Blood Methemoglobin 0.5 % (0-2) Blood Gas Hemoglobin 10.2 G/DL (12.0-16.0) Oxygen Delivery Device NASAL CANNULA Blood Gas Liter Flow 2 L/M Test 01/06/18 17:45 01/06/18 18:17 01/07/18 05:50 01/07/18 10:26 Haptoglobin 31 MG/DL (30-200) Potassium Level 1.7 MEQ/L (3.5-5.1) 3.1 MEQ/L (3.5-5.1) Vancomycin Level Trough 14.4 MCG/ML (5.0-10.0) Prothrombin Time 20.1 SEC (9.8-11.6) 27.4 SEC (9.8-11.6) Prothromb Time International Ratio 2.0 RATIO 2.7 RATIO Blood Gas Puncture Site LT BRACHIAL Blood Gas Patient Temperature 98.6 Blood Gas HCO3 20 mmol/L (22-26) Blood Gas Base Excess -3.6 mmol/L (-2-2) Blood Gas Oxygen Saturation 94 % (90-100) Arterial Blood pH 7.46 (7.380-7.420) Arterial Blood Partial Pressure CO2 28 mmHg (38-42) Arterial Blood Partial Pressure O2 82 mmHg (61-120) Arterial Blood Oxygen Content 14.4 Vol % (12.0-20.0) Arterial Blood Carboxyhemoglobin 1.7 % (0-4) Arterial Blood Methemoglobin 0.5 % (0-2) Blood Gas Hemoglobin 10.9 G/DL (12.0-16.0) Oxygen Delivery Device NASAL CANNULA Blood Gas Liter Flow 2 L/M Fibrinogen 203 mg/dL (227-377) Blood Urea Nitrogen 25 MG/DL (7-18) Creatinine 1.46 MG/DL (0.60-1.30) Random Glucose 109 MG/DL (74-106) Total Protein 6.3 GM/DL (6.4-8.2) Albumin 2.6 GM/DL (3.4-5.0) Calcium Level 8.3 MG/DL (8.5-10.1) Phosphorus Level 0.2 MG/DL (2.5-4.9) Magnesium Level 1.5 MG/DL (1.5-2.5) Alkaline Phosphatase 84 U/L (45-117) Aspartate Amino Transf (AST/SGOT) 68 U/L (15-37) Alanine Aminotransferase (ALT/SGPT) 60 U/L (12-78) Lactate Dehydrogenase 342 U/L (87-241) Total Bilirubin 24.6 MG/DL (0.2-1.0) Sodium Level 154 MEQ/L (136-145) Chloride Level 120 MEQ/L (98-107) Carbon Dioxide Level 20.3 MEQ/L (21.0-32.0) Anion Gap 14 MEQ/L (5-15) Estimat Glomerular Filtration Rate 49 ML/MIN (>89) Lactic Acid Level 5.8 mmol/L (0.4-2.0) Ammonia 45 MCMOL/L (11-32) Test 01/07/18 11:45 Result Diagram: 01/06/18 0408 01/07/18 1026 Imaging Last 24 hours Impressions Chest X-Ray 01/07/18 0600 Signed Impressions: Service Date/Time: Sunday, January 07, 2018 04:18 - CONCLUSION: Bilateral airspace disease developing, left worse than right. Darnell Lay MD Assessment and Plan Disease Oriented Problem List: (1) Elevated liver function tests (2) Lactic acidosis (3) Acute kidney injury (4) Coagulopathy (5) Hyperammonemia (6) History of ETOH abuse Symptom Scale: (1) Altered mental status 0-10 Scale: Unable to quantify Comment: History of liver cirrhosis. Lactic acidosis, hyper ammonia. . (2) Agitation Comment: . (3) Debility 0-10 Scale: Unable to quantify Comment: Progressive . Pertinent Non-Medical Issues Psychosocial: Patient was born and raised in [place]. Patient was once and once. He has no background. 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 Patient usually spends 6 months in [place] in 6 months in [place]. Patient he has 3 adult daughters who live in [place]. Spiritual: Patient is Yarsanism Legal: Patient's sister Lea Le stating that she is power of patent prosecution attorney- pending bringing in copies for verification Ethical issues impacting care: None identified at this time . Important Contacts Vpyvudkn-Pegjmyf-Gvlk Daughter- Mimi Ramos Daughter-Ivana Rios Sister- Lea Le-[phone] Brother- Gerardo Le- [phone] . Prognosis Mr. 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 Patient was brought in by [facility] on 01/03/18 as a Young act for evaluation for altered mental status and on arrival to the ER patient was complaining of left shoulder pain. Clinical course complicated with encephalopathy, coagulopathy, and hyperammonemia. Given ongoing comorbidities, patient remains at very high risk for further complications, deterioration and decline. . Code Status: Full Code Plan PLAN: Legal decision maker: Patient is currently unable to participate in medical decision making. [place] Stat[place], patient`s adult daughters Charla Ramos and Ivana Rios will serve as patient`s health care proxys. Goals: Aggressive per patient`s sister who is a self named POA. Pending discussion with patient`s daughters when contact information is made available. CODE STATUS: Full code Discussed with patient`s brother Gerardo Le at length who states that he will update patient`s children. Updated patient's brother on patient's current status and medical treatment that has been rendered since admission. Also updated on previous conversation with his sister yesterday regarding who patient `s legal decision maker would be. Patients` brother stated that his sister was unable to locate POA papers and they are unsure if they have them here or patient left them in [place]. Explained to him what the [place] requires and notified him that one of patient`s adult daughters has opted out of decision making for her father. Patients`s brother will work on obtaining contact information for the other 2 daughters and he also mentioned that one of patient` s daughter Rachel Le has a history of traumatic brain injury and will not be able to participate in any medical decision making. Patient`s brother stated that he may need to sit down with his family and further discuss code status given patient`s current medical condition and diagnosis. Patient`s brother seems not agreeable with having patient as a full code but wants to talk to his family first before any changes are made. Anticipatory guidance provided and patients` brother requested guidance and information on how family would proceed if patient does not improve medically. Introduced hospice philosophy and benefits. Patient`s brother appreciative of palliative care visit and update. SYMPTOMS: * Pain: History of knee pain and liver cirrhosis. Patient started on Rifaximin. Morphine sulfate currently on hold. Patient is restless, not verbalizing. Vital signs stable. * Agitation: Multifactorial. Hx of ETOH abuse, liver cirrhosis with hyperammonemia. Patient was on Precedex infusion. Currently on hold. Patient is not agitated at time of visit. No recommendations at this time. * Debility: Progressive. History of end-stage liver disease. Patient was recently hospitalized. Family stated that patient has been declining for the past 2 years, patient used to walking stick for ambulation. If goals remain aggressive patient may benefit from physical therapy. Palliative care will continue to follow the patient during hospital course as condition evolves, to assist patient/decision-maker with understanding of their medical conditions, weighing benefits/burdens of treatment options, for clarification of goals of treatment. Additionally will assist with any symptoms of palliative concern. . Attestation To help prompt me to consider important information that might be impacting today's encounter and assessment, information from prior notes written by myself or my colleagues may have been "brought forward" into today's note. My signature on this note, however, is an attestation that I personally performed the exam, history, and/or decision-making noted today, and, unless otherwise indicated, the interactions with patient, family, and staff as well as the review of records all occurred today. I also attest that the listed assessment and stated plan reflect my best clinical judgment today based on the combination of historical information, prior notes, and today's exam/ interactions. When time spent is documented, it refers only to time spent today by the signer, or if indicated, combined time spent today by collaborating physician/nurse practitioner. Irasema Abernathy Jan 07, 2018 13:25
[2018-01-07] MEDS: PHYTONADIONE 10 MG/ML VIAL SQ SCH (15:56)
--- NOTE | 2018-01-07 17:00 | HHI.CCPN ---
Subjective Remarks/Hospital Course This is a 57-year-old male. Date of admission 01/03/2018. Past medical history includes end-stage liver disease secondary to alcohol. Patient ceased drinking tobacco December 20. Patient ceased smoking tobacco . He drank half a gallon of whiskey daily for an unspecified amount of time according to brother Gerardo and sister Lea. Patient was recently to [facility] with a total bilirubin 29 and elevated ammonia 170. At that time a CAT scan of the abdomen pelvis revealed ascites and cholelithiasis without cholecystitis. Patient was recently discharged from [facility] Today, patient was brought in under [facility] due to altered mental status and refusing to be transferred to the hospital. At this facility, patient noted to have lactic acidosis 5. Potassium 2.7, total bilirubin of 30 elevated transaminases. INR is currently 2.9. CBC is currently pending. X-ray of chest and shoulder revealed no acute findings. CT brain revealed no acute intracranial findings. Patient received 40 mEq potassium chloride for potassium 2.7. Patient received ampicillin, vancomycin and ceftriaxone for possible meningitis. A lumbar puncture was attempted by the ED physician unsuccessfully. We are asked to admit the patient. There is no repeat lactate was 5.2. Repeat ammonia level after initial is less than 10 is currently 81. Started on lactulose 30 cc 4 times daily and rifaximin 550 mg p.o. twice daily Subjective: 3: Afebrile . Patient remains on sedation with Precedex infusion. Coagulopathy labs pending this a.m. status post transfusion. Noted IV infiltration last evening in the ED left arm significantly edematous. 01/05: Sedation minimized ,patient aggressive/ combative thrashing wildly completely disoriented and not responding to any commands. Ammonia continues to be elevated 144. 01/06: Sedation discontinued. Patient remains encephalopathic. Ammonia level continues to increase, despite rifaximin and lactulose. Otitis panel revealed return notable for hepatitis C. Patient continues to be coagulopathic, INR 4.1, Fibrinogen 163, platelet count 26 this a.m.. FFP, vitamin K ,cryoprecipitate and platelets being transfused. Hematology has been consulted. GI has been consulted. 01/07: Patient has been off sedation for greater than 24 hours, remains encephalopathic. Ammonia level trending down. INR continues to be elevated, patient to receive 5 mg of vitamin K. Extensive discussion with family regarding the patient's condition, and poor prognosis. Palliative care is following. Objective Vital Signs Date Time Temp Pulse Resp B/P (MAP) Pulse Ox O2 Delivery O2 Flow Rate FiO2 01/07/18 16:00 98.3 80 113/69 (84) 01/07/18 12:00 17 100 01/07/18 07:50 Nasal Cannula 2.00 Intake and Output 01/07/18 01/07/18 01/08/18 08:00 16:00 00:00 Intake Total 150 ml Output Total 4700 ml 2100 ml Balance -4550 ml -2100 ml Result Diagram: 01/07/18 1145 01/07/18 1026 Other Results Laboratory Tests Test 01/06/18 17:25 01/07/18 05:50 Blood Gas Puncture Site LT RADIAL LT BRACHIAL Blood Gas Patient Temperature 98.6 98.6 Blood Gas HCO3 20 mmol/L (22-26) 20 mmol/L (22-26) Blood Gas Base Excess -3.0 mmol/L (-2-2) -3.6 mmol/L (-2-2) Blood Gas Oxygen Saturation 96 % (90-100) 94 % (90-100) Arterial Blood pH 7.52 (7.380-7.420) 7.46 (7.380-7.420) Arterial Blood Partial Pressure CO2 24 mmHg (38-42) 28 mmHg (38-42) Arterial Blood Partial Pressure O2 95 mmHg (61-120) 82 mmHg (61-120) Arterial Blood Oxygen Content 13.9 Vol % (12.0-20.0) 14.4 Vol % (12.0-20.0) Arterial Blood Carboxyhemoglobin 1.7 % (0-4) 1.7 % (0-4) Arterial Blood Methemoglobin 0.5 % (0-2) 0.5 % (0-2) Blood Gas Hemoglobin 10.2 G/DL (12.0-16.0) 10.9 G/DL (12.0-16.0) Oxygen Delivery Device NASAL CANNULA NASAL CANNULA Blood Gas Liter Flow 2 L/M 2 L/M Imaging Last Impressions Head CT 01/03/18 3157 Signed Impressions: Service Date/Time: Wednesday, January 03, 2018 15:17 - CONCLUSION: Negative for an acute process. Sid Chilel MD FACR Chest X-Ray 01/03/18 1437 Signed Impressions: Service Date/Time: Wednesday, January 03, 2018 14:55 - CONCLUSION: No acute disease. Ricky Gómez Jr., MD Shoulder X-Ray 01/03/18 0000 Signed Impressions: Service Date/Time: Wednesday, January 03, 2018 15:00 - CONCLUSION: Degenerative changes of the a.c. joint. No acute abnormality. Ricky Gómez Jr., MD Objective Remarks GENERAL: 57-year-old male currently sedated in bed jaundice and encephalopathic SKIN: Warm and dry. Jaundice HEAD: Atraumatic. Normocephalic. EYES: Pupils equal and round. + scleral icterus. No injection or drainage. ENT: No nasal bleeding or discharge. Mucous membranes pink and moist. Edentulous NECK: Trachea midline. No JVD. CARDIOVASCULAR: Regular rate and rhythm. S1, S2. No S4 without murmur RESPIRATORY: Diminished breath sounds throughout. Positive end expiratory wheeze. No rales or rhonchi. GASTROINTESTINAL: Abdomen mildly distended. Hypoactive bowel sounds appreciated. Positive past megaly. MUSCULOSKELETAL: Extremities without clubbing, cyanosis, or edema. No obvious deformities. NEUROLOGICAL: Patient is off sedation greater than 24 hours , not responding to commands. Obtunded. Previously, motor grossly within normal limits. 5/5 muscle strength in the arms and legs. Positive asterixis A/P Assessment and Plan Neuro/Psych: Acute encephalopathy History of EtOH use/abuse THC use Noted allergy to acetaminophen/elevated transaminases Morphine sulfate if indicated for pain management Continue dexmedetomidine drip to maintain an RASS of 0 CT brain on admission revealed no acute intracranial findings Ammonia level trending down-144->155->45 continuing lactulose and rifaximin Consider LP via IR, when coagulopathy is corrected Seizure Precautions CV: Lactic acidosis Currently on normal saline at 84 cc an hour Not requiring vasopressors and/or antihypertensives Serial lactates until cleared. Will receive fresh frozen plasma and IV fluids overnight. Resp: Tobaccoism Nasal cannula to maintain saturations greater than or equal to 92% Incentive spirometry while awake Chest x-ray on admission revealed no acute cardiopulmonary findings GI: Elevated total bilirubin Elevated transaminases Hypoalbuminemia Cholelithiasis History of esophageal varices? Hyperammonia Alcoholic hepatitis Hepatitis C ESLD Total bilirubin was 30. Was 29 last week according to brother. Continue lactulose 30 cc 4 times daily and rifaximin 550 mg p.o. twice daily 01/04 CT abdomen/pelvis Localized ascites about the liver without tracking into the abdomen or pelvis. Dilation of the common bile duct up to 11 mm without calcified gallstones or calcifications in the common bile duct. The gallbladder appears mildly distended. Mild induration of the mesenteric fat in the right upper quadrant. We will treat for SBP see below Albumin BID MELD score 39 GI consulted : Meadows catheter if indicated for accurate I's and O's in a critically ill patient. Endo: Sliding scale insulin if indicated to maintain euglycemia/low regimen with Novulin R TSH 0.53 Renal: Acute kidney injury? Creatinine 2.1. Unknown baseline. Check CT abdomen/pelvis rule out hydronephrosis. Urine electrolytes and eosinophils pending Monitor BMP .Creatinine 1.6 Heme: Coagulopathy likely secondary to end-stage liver disease Repeat CBC pending post transfusions Heme consulted ID: Recent urinary tract infection Bandemia Vancomycin, cefepime and metronidazole initiated today. UA here is negative Blood cultures 2, UA and sputum all ordered along with influenza A and B FEN: Electrolyte derangement Received 40 mEq KCl in ED. Magnesium 2.1 Currently on normal saline at 84 cc now MSK: PT evaluate and treat Access Utilized peripheral IV. Central line if indicated Prophylaxis GI -pantoprazole DVT -SCD/pharmacological prophylaxis is contraindicated with INR greater than 2.0 Discussed with KEG INSPECTOR at bedside (Natacha Castro), and patient's sister Critical Care: my billing statement This patient remains critically ill with one or more organ systems which are or may become a threat to life. I have spent in excess of 69 minutes discontinuously in the care and management of this patient. This time is exclusive of procedures, and includes, but is not limited to, evaluation of the patient, review of the medical record, discussions with family, consultants, nursing staff, or respiratory therapy, and documentation in the medical record. 01/07-Extensive discussion with family to include the patient's mother, brother and sister regarding the criticality of this patient's illness, MELD score. The patient has a very poor prognosis, family is considering possibly hospice. The patient's children will be arriving from [place] this weekend. And tentative plan for palliative conference on Wednesday to discuss/define goals of care. Physician Frida Sanchez MD Jan 07, 2018 17:00
[2018-01-07] MEDS ORDERED: DIATRIZOATE MEGLUM/DIATRIZOATE SOD 9 ML CUP PO ONE (19:00)
--- NOTE | 2018-01-07 23:08 | RADRPT ---
EXAM DATE/TIME: 01/07/2018 22:30 [place] COMPARISON: CT ABDOMEN & PELVIS W/O CONTRAST, January 03, 2018, 20:22. INDICATIONS : Evaluate ascites. ORAL CONTRAST: Prescribed oral contrast ingested. RADIATION DOSE: 15.36 CTDIvol (mGy) MEDICAL HISTORY : Hernia, hiatal. liver disease SURGICAL HISTORY : None. ENCOUNTER: Subsequent ACUITY: 4 - 6 days PAIN SCALE: Non-responsive LOCATION: abdomen/ pelvis TECHNIQUE: Volumetric scanning of the abdomen and pelvis was performed. Using automated exposure control and ad justment of the mA and/or kV according to patient size, radiation dose was kept as low as reasonably achievable to obtain optimal diagnostic quality images. DICOM format image data is available electro nically for review and comparison. FINDINGS: Limited quality exam the patient's arms and hands in the [id number] of scan. There is prominent a irspace opacity in the lower left lung, multisegmental in distribution and a smaller area of airspace opacity in the right lung. Prominent air bronchograms are present. There are bilateral pleural eff usions measuring 1.5 cm in size. Pulmonary opacities and pleural effusions are new when compared to prior CT. There is persistent fluid about the liver measuring up to 3 cm in size, very similar to prior CT. Th ere is opacity within the lumen of the gallbladder involving the body without calcification suggestin g tumefactive sludge. No evidence of hydronephrosis. Gastric tube tip projects within the duodenum. In the pelvis, there is interval development of a moderate amount of fluid, measuring 5.3 cm. Loops of small and large bowel are normal in diameter. Oral contrast passes through to the rectum. CONCLUSION: 1. Increased fluid, with interval development of moderate amount of free fluid in the pelvis. 2. Interval development of intermediate opacity within the gallbladder lumen suggesting sludge. Ricky Milan MD on January 07, 2018 at 22:50 Board Certified Radiologist. This report was verified electronically.
[2018-01-07] MEDS: MULTIVITAMIN INJ 10 ML, FOLIC ACID INJ 1 MG in SODIUM CHLORID 0.9% 500 ML INJ 500 ML IV SCH (23:40)
[2018-01-08] VITALS (19 sets, daily range): BP systolic 120–172; BP diastolic 78–99; PULSE 68–97; RESP 16–19; TEMP 97.7–98.8; O2SAT 94–99
[2018-01-08] MEDS: POTASSIUM CHLOR 20 MEQ PREMIX 100 ML IV PRN (00:49)
[2018-01-08] MEDS: metroNIDAZOLE 500 MG INJ 100 ML IV SCH ×4 (00:49→20:43)
[2018-01-08] MEDS: CHLORHEXIDINE GLUCONATE 2 % 1 PACK (2 CLOTHS) TOP SCH (04:00)
[2018-01-08] MEDS: PENTOXIFYLLINE 400 MG CONTROLLED RELEASE TAB PO SCH ×3 (04:58→20:44)
[2018-01-08] MEDS: INSULIN NovoLIN REGULAR SUPPLEMENTAL SCALE SQ SCH ×4 (05:15→18:00)
[2018-01-08] MEDS: VANCOMYCIN INJ 1,500 MG in SODIUM CHLORID 0.9% 500 ML INJ 500 ML IV SCH (05:27)
[2018-01-08] MEDS: methylPREDNISolone SOD SUCC 40 MG/1 ML VIAL IV PUSH SCH ×3 (05:28→20:44)
[2018-01-08] MEDS: ALBUMIN 5% INJ 250 ML IV SCH (08:08)
[2018-01-08] MEDS: PANTOPRAZOLE SODIUM 40 MG VIAL IV PUSH SCH (08:09)
[2018-01-08] MEDS: PHYTONADIONE 10 MG/ML VIAL SQ SCH (08:09)
[2018-01-08] MEDS: SODIUM CHLORIDE 0.9% FLUSH 10 ML FLUSH IV FLUSH SCH ×2 (08:09→20:44)
[2018-01-08] MEDS: RIFAXIMIN 550 MG TAB PO SCH ×2 (08:09→20:44)
[2018-01-08] MEDS: ARTIFICIAL TEARS OPTH SOLN 15 ML BTL EACH EYE SCH ×3 (08:10→18:00)
[2018-01-08] MEDS: LACTULOSE SYRUP 20 GM/30 ML CUP PO SCH ×4 (08:10→20:44)
[2018-01-08] MEDS: DOCUSATE SODIUM 50 MG/SENNA 8.6 MG TAB PO SCH ×2 (08:10→20:44)
[2018-01-08 09:19] LABS: INTERNATIONAL NORMALIZED RATIO 3.3 RATIO; PROTHROMBIN TIME - PATIENT 32.8 SEC (9.8-11.6)
[2018-01-08 09:30] LABS: AUTOMATED NEUTROPHIL # 16.5 TH/MM3 (1.8-7.7); BASOPHIL % 0.1 % (0.0-2.0); HEMATOCRIT 33.8 % (39.0-51.0); HEMOGLOBIN 11.8 GM/DL (13.0-17.0); LYMPH % 1.9 % (9.0-44.0); LYMPHOCYTE # 0.3 TH/MM3 (1.0-4.8); MEAN CELL VOLUME 108.2 FL (80.0-100.0); MEAN CORPUSCULAR HEMOGLOBIN 37.7 PG (27.0-34.0); MEAN CORPUSCULAR HGB CONC 34.8 % (32.0-36.0); MEAN PLATELET VOLUME 9.4 FL (7.0-11.0); MONO % 3.6 % (0.0-8.0); MONOCYTE # 0.6 TH/MM3 (0-0.9); NEUT % 94.4 % (16.0-70.0); PLATELET COUNT 49 TH/MM3 (150-450); RED BLOOD COUNT 3.13 MIL/MM3 (4.50-5.90); RED CELL DISTRIBUTION WIDTH 16.6 % (11.6-17.2); WHITE BLOOD COUNT 17.5 TH/MM3 (4.0-11.0)
[2018-01-08 09:54] LABS: ALBUMIN 2.8 GM/DL (3.4-5.0); ALKALINE PHOSPHATASE 93 U/L (45-117); ALT (GPT) 70 U/L (12-78); AST (GOT) 83 U/L (15-37); BICARBONATE 23.2 MEQ/L (21.0-32.0); BLOOD UREA NITROGEN 27 MG/DL (7-18); CALCIUM 8.1 MG/DL (8.5-10.1); CHLORIDE 125 MEQ/L (98-107); CREATININE 1.39 MG/DL (0.60-1.30); GLOMERULAR FILTRATION RATE 52 ML/MIN (>89); GLUCOSE,RANDOM 99 MG/DL (74-106); MAGNESIUM 1.6 MG/DL (1.5-2.5); PHOSPHORUS 0.4 MG/DL (2.5-4.9); TOTAL PROTEIN 6.5 GM/DL (6.4-8.2)
[2018-01-08 09:55] LABS: TOTAL BILIRUBIN ADULT 25.7 MG/DL (0.2-1.0)
[2018-01-08 09:57] LABS: SODIUM (NA) 158 MEQ/L (136-145)
[2018-01-08 10:32] LABS: BANDS 19 % (0-6); LYMPHOCYTES 1 % (9-44); MONOCYTES 3 % (0-8); NEUTROPHIL # MANUAL DIFF 16.8 TH/MM3 (1.8-7.7); POLYS (SEG NEUTROPHILS) 77 % (16-70)
[2018-01-08 10:33] LABS: TARGET CELLS 1+ (NORMAL); TOXIC GRANULATION 1+ (NORMAL); TOXIC VACUOLATION PRESENT (NONE SEEN)
[2018-01-08 10:34] LABS: ACANTHOCYTES OCC (NORMAL)
[2018-01-08] MEDS: DEXTROSE 5% IN WATE 1000ML INJ 1,000 ML IV SCH (11:00)
--- NOTE | 2018-01-08 12:50 | PD.ONC.PN ---
Subjective Subjective Remarks Afebrile Per RN he has Hemoccult positive stools No obvious bleeding Family at bedside who state they are waiting for him to wake up Objective Data Date Time Temp Pulse Resp B/P (MAP) Pulse Ox O2 Delivery O2 Flow Rate FiO2 01/08/18 12:00 98.5 80 18 172/99 (123) 97 01/08/18 10:00 74 01/08/18 09:00 90 01/08/18 08:00 98.8 81 16 134/88 (103) 99 01/08/18 08:00 81 01/08/18 07:00 72 01/08/18 06:00 74 01/08/18 04:00 80 01/08/18 04:00 80 19 141/81 (101) 96 01/08/18 02:00 68 01/08/18 00:00 97.7 86 16 120/78 (92) 99 01/08/18 00:00 86 01/07/18 22:00 80 01/07/18 20:00 98.8 88 16 112/70 (84) 98 01/07/18 20:00 88 01/07/18 19:45 99 Nasal Cannula 2.00 01/07/18 18:00 87 01/07/18 17:00 89 01/07/18 16:00 77 01/07/18 16:00 98.3 80 113/69 (84) 01/07/18 15:00 70 01/07/18 14:00 69 01/07/18 13:00 71 01/08/18 01/08/18 01/08/18 07:00 15:00 23:00 Intake Total 2923 ml 1765 ml Output Total 2625 ml Balance 298 ml 1765 ml Result Diagram: 01/08/18 0853 01/08/18 0853 Laboratory Results Laboratory Tests Test 01/07/18 14:00 01/07/18 21:13 01/08/18 05:45 01/08/18 08:53 Stool C. difficile Toxin (PCR) NEGATIVE Stl C. difficile Toxin Epiderm 027 PRESUMPTIVE NEGATIVE Ethyl Alcohol Level LESS THAN 3 MG/DL Blood Gas Puncture Site RT RADIAL Blood Gas Patient Temperature 98.6 Blood Gas HCO3 22 mmol/L Blood Gas Base Excess -1.1 mmol/L Blood Gas Oxygen Saturation 94 % Arterial Blood pH 7.47 Arterial Blood Partial Pressure CO2 31 mmHg Arterial Blood Partial Pressure O2 83 mmHg Arterial Blood Oxygen Content 15.2 Vol % Arterial Blood Carboxyhemoglobin 1.7 % Arterial Blood Methemoglobin 0.3 % Blood Gas Hemoglobin 11.4 G/DL Oxygen Delivery Device NASAL CANNULA Blood Gas Liter Flow 2 L/M White Blood Count 17.5 TH/MM3 Red Blood Count 3.13 MIL/MM3 Hemoglobin 11.8 GM/DL Hematocrit 33.8 % Mean Corpuscular Volume 108.2 FL Mean Corpuscular Hemoglobin 37.7 PG Mean Corpuscular Hemoglobin Concent 34.8 % Red Cell Distribution Width 16.6 % Platelet Count 49 TH/MM3 Mean Platelet Volume 9.4 FL Neutrophils (%) (Auto) 94.4 % Lymphocytes (%) (Auto) 1.9 % Monocytes (%) (Auto) 3.6 % Eosinophils (%) (Auto) 0.0 % Basophils (%) (Auto) 0.1 % Neutrophils # (Auto) 16.5 TH/MM3 Lymphocytes # (Auto) 0.3 TH/MM3 Monocytes # (Auto) 0.6 TH/MM3 Eosinophils # (Auto) 0.0 TH/MM3 Basophils # (Auto) 0.0 TH/MM3 CBC Comment AUTO DIFF Differential Total Cells Counted 100 Neutrophils % (Manual) 77 % Band Neutrophils % 19 % Lymphocytes % 1 % Monocytes % 3 % Neutrophils # (Manual) 16.8 TH/MM3 Differential Comment FINAL DIFF MANUAL Toxic Granulation 1+ Toxic Vacuolation PRESENT Platelet Estimate LOW Platelet Morphology Comment NORMAL Target Cells 1+ Acanthocytes OCC Prothrombin Time 32.8 SEC Prothromb Time International Ratio 3.3 RATIO Fibrinogen 187 mg/dL Blood Urea Nitrogen 27 MG/DL Creatinine 1.39 MG/DL Random Glucose 99 MG/DL Total Protein 6.5 GM/DL Albumin 2.8 GM/DL Calcium Level 8.1 MG/DL Phosphorus Level 0.4 MG/DL Magnesium Level 1.6 MG/DL Alkaline Phosphatase 93 U/L Aspartate Amino Transf (AST/SGOT) 83 U/L Alanine Aminotransferase (ALT/SGPT) 70 U/L Total Bilirubin 25.7 MG/DL Sodium Level 158 MEQ/L Potassium Level 2.2 MEQ/L Chloride Level 125 MEQ/L Carbon Dioxide Level 23.2 MEQ/L Anion Gap 10 MEQ/L Estimat Glomerular Filtration Rate 52 ML/MIN Lactic Acid Level 3.2 mmol/L Ammonia 32 MCMOL/L Culture Results Microbiology Date/Time Source Procedure Growth Status 3/9/18 14:00 Stool Stool Stool Occult Blood (VIET) - Final HEMOCCULT POSITIVE Complete Administered Medications Medications (Trade) Dose Ordered Sig/Stone Route PRN Reason Start Time Stop Time Status Last Admin Dose Admin Sodium Chloride (NS Flush) 2 ml BID IV FLUSH 01/03/18 21:00 01/08/18 08:09 Pantoprazole Sodium (Protonix Inj) 40 mg DAILY IV PUSH 01/04/18 09:00 01/08/18 08:09 Lorazepam (Ativan Inj) 1 mg Q1H PRN IV PUSH Agitation/Sedation 01/03/18 18:45 Future Hold 01/05/18 09:22 Artificial Tears (Tears Naturale Opth Soln) 1 drop TID EACH EYE 01/04/18 09:00 01/08/18 08:10 Ondansetron HCl (Zofran Inj) 4 mg Q6H PRN IV PUSH NAUSEA OR VOMITING 01/03/18 18:45 01/08/18 00:49 Miscellaneous Information 1 [id number] XX 01/03/18 18:45 01/03/18 18:45 Chlorhexidine Gluconate (Chlorhexidine 2% Cloth) 3 pack Taper DAILY@04 TOP 01/04/18 04:00 12/31/18 03:59 01/08/18 04:00 Senna/Docusate Sodium (Christine-Colace) 1 tab BID PO 01/03/18 21:00 01/08/18 08:10 Cefepime HCl 2000 mg/Sodium Chloride 100 ml @ 200 mls/hr Q12H IV 01/03/18 23:00 01/07/18 23:40 Metronidazole 100 ml @ 100 mls/hr Q6H IV 01/03/18 20:00 01/08/18 05:28 Lactulose (Lactulose Liq) 30 ml QID PO 01/03/18 21:00 01/08/18 08:10 Rifaximin (Xifaxan) 550 mg BID PO 01/03/18 21:00 01/08/18 08:09 Vancomycin HCl 1500 mg/Sodium Chloride 515 ml @ 250 mls/hr Q18H IV 01/04/18 12:00 01/08/18 05:27 Dexmedetomidine HCl 1000 mcg/ Sodium Chloride 250 ml @ 3.75 mls/hr TITRATE PRN IV SEDATION 01/05/18 17:15 Future Hold 01/06/18 03:55 Albumin Human 250 ml @ 250 mls/hr Q12H IV 01/05/18 21:00 Future Hold 01/08/18 08:08 Multivitamins 10 ml/Folic Acid 1 mg/Sodium Chloride 510.2 ml @ 125 mls/hr Q24H IV 01/05/18 22:00 01/10/18 21:59 01/07/18 23:40 Potassium Chloride 100 ml @ 50 mls/hr Q2H PRN IV For Potassium 2.8 - 3.2 mEq/L 01/06/18 08:00 01/08/18 00:49 Potassium Phosphate 30 mmol/ Sodium Chloride 260 ml @ 42 mls/hr UNSCH PRN IV SEE LABEL COMMENTS 01/06/18 08:00 01/08/18 11:31 Methylprednisolone Sodium Succinate (SoluMEDROL INJ) 40 mg Q8HR IV PUSH 01/06/18 17:15 01/08/18 05:28 Phytonadione (Vitamin K Inj) 5 mg DAILY SQ 01/07/18 12:30 01/08/18 08:09 Dextrose 1,000 ml @ 84 mls/hr [id number] IV 01/08/18 12:00 01/08/18 11:00 Objective Remarks GENERAL: Older male resting in bed. He has nonpurposeful movements. SKIN: Warm and dry. +jaundiced HEAD: Normocephalic. EYES: ++ scleral icterus. No injection or drainage. NECK: Supple, trachea midline CARDIOVASCULAR: +S1/S2 RESPIRATORY: Scattered rhonchi anteriorly. GASTROINTESTINAL: Abdomen soft, non-tender, nondistended. NG tube in place EXTREMITIES: No cyanosis. No edema Assessment/Plan Problem List: (1) Coagulopathy ICD Codes: D68.9 - Coagulation defect, unspecified Plan: --Coagulopathy in patient with end stage liver disease. --Due to severe liver dysfunction, he is unable to make clotting factors. --monitor his INR and fibrinogen daily. --if fibrinogen is less than 150, transfuse 2 units of cryoprecipitate. --give vitamin K as needed to keep his INR less than 1.7. -->started on Vitamin K 5mg SQ daily on 01/07 (2) Thrombocytopenia ICD Codes: D69.6 - Thrombocytopenia, unspecified Plan: --due to liver disease and sepsis. --haptoglobin low normal, LDH elevated. --transfuse to keep platelet count greater than 30,000 in this acutely ill patient who is at a high risk for bleeding. (3) Macrocytic anemia ICD Codes: D53.9 - Nutritional anemia, unspecified Plan: -- likely from alcoholism. --GI following. --stool Hemoccult positive (4) Encephalopathy ICD Codes: G93.40 - Encephalopathy, unspecified Plan: -- secondary to alcoholic liver disease. Management per primary team. Assessment 57y/o admitted as trevizo act. 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 --hepatitis C Plan 1. Fibrinogen 187 today. Plan for transfusion of cryo less than 150 2. Continue vitamin K for INR greater than 1.7. 3. Monitor CBC, coags 4. Pt with overall very poor prognosis with worsening coagulopathy. Would recommend giving FFP for any obvious bleeding. Attending Statement The exam, history, and the medical decision-making described in the above note were completed with the assistance of the mid-level provider. I reviewed and agree with the findings presented. I attest that I had a [id number] encounter with the patient on the same day, and personally performed and documented my assessment and findings in the medical record. Pt is lethargic, does not respond to verbal command. Has coagulopathy from ESLD. No Obvious bleeding. NO Cryo or FFP today. Frances Lucio Jan 08, 2018 12:50 Shellie Erickson MD Jan 09, 2018 00:15
[2018-01-08] MEDS: CEFEPIME INJ 2,000 MG in SODIUM CHLORIDE 0.9% INJ 100 ML IV SCH ×2 (14:11→22:17)
--- NOTE | 2018-01-08 14:17 | HHI.CCPN ---
Subjective Remarks/Hospital Course This is a 57-year-old male. Date of admission 01/03/2018. Past medical history includes end-stage liver disease secondary to alcohol. Patient ceased drinking tobacco December 20. Patient ceased smoking tobacco . He drank half a gallon of whiskey daily for an unspecified amount of time according to brother Gerardo and sister Lea. Patient was recently to [facility] with a total bilirubin 29 and elevated ammonia 170. At that time a CAT scan of the abdomen pelvis revealed ascites and cholelithiasis without cholecystitis. Patient was recently discharged from [facility] Today, patient was brought in under [facility] due to altered mental status and refusing to be transferred to the hospital. At this facility, patient noted to have lactic acidosis 5. Potassium 2.7, total bilirubin of 30 elevated transaminases. INR is currently 2.9. CBC is currently pending. X-ray of chest and shoulder revealed no acute findings. CT brain revealed no acute intracranial findings. Patient received 40 mEq potassium chloride for potassium 2.7. Patient received ampicillin, vancomycin and ceftriaxone for possible meningitis. A lumbar puncture was attempted by the ED physician unsuccessfully. We are asked to admit the patient. There is no repeat lactate was 5.2. Repeat ammonia level after initial is less than 10 is currently 81. Started on lactulose 30 cc 4 times daily and rifaximin 550 mg p.o. twice daily Subjective: 3: Afebrile . Patient remains on sedation with Precedex infusion. Coagulopathy labs pending this a.m. status post transfusion. Noted IV infiltration last evening in the ED left arm significantly edematous. 01/05: Sedation minimized ,patient aggressive/ combative thrashing wildly completely disoriented and not responding to any commands. Ammonia continues to be elevated 144. 01/06: Sedation discontinued. Patient remains encephalopathic. Ammonia level continues to increase, despite rifaximin and lactulose. Otitis panel revealed return notable for hepatitis C. Patient continues to be coagulopathic, INR 4.1, Fibrinogen 163, platelet count 26 this a.m.. FFP, vitamin K ,cryoprecipitate and platelets being transfused. Hematology has been consulted. GI has been consulted. 01/07: Patient has been off sedation for greater than 24 hours, remains encephalopathic. Ammonia level trending down. INR continues to be elevated, patient to receive 5 mg of vitamin K. Extensive discussion with family regarding the patient's condition, and poor prognosis. Palliative care is following. 01/08: The patient remains encephalopathic. Ammonia level trending down patient continues on lactulose 4 times a day. Plan for repeat CT brain in a.m. Tube feeds initiated Jevity 1.5 at 65 cc/hour. Patient notably having more spontaneous movement today , not following commands. Sodium level noted to be elevated, albumin placed on hold sodium labs initiated every 6 hours. D5W infusion initiated. Patient's children to arrive at 8 PM tonight, tentative plan to have a family conference in a.m.. Objective Vital Signs Date Time Temp Pulse Resp B/P (MAP) Pulse Ox O2 Delivery O2 Flow Rate FiO2 01/08/18 12:00 98.5 80 18 172/99 (123) 97 01/07/18 19:45 Nasal Cannula 2.00 Intake and Output 01/08/18 01/08/18 01/09/18 08:00 16:00 00:00 Intake Total 3338 ml 1250 ml Output Total 2625 ml Balance 713 ml 1250 ml Result Diagram: 01/08/18 0853 01/08/18 0853 Other Results Microbiology Date/Time Source Procedure Growth Status 01/07/18 14:00 Stool Stool Stool Occult Blood (VIET) - Final HEMOCCULT POSITIVE Complete Laboratory Tests Test 01/08/18 05:45 Blood Gas Puncture Site RT RADIAL Blood Gas Patient Temperature 98.6 Blood Gas HCO3 22 mmol/L (22-26) Blood Gas Base Excess -1.1 mmol/L (-2-2) Blood Gas Oxygen Saturation 94 % (90-100) Arterial Blood pH 7.47 (7.380-7.420) Arterial Blood Partial Pressure CO2 31 mmHg (38-42) Arterial Blood Partial Pressure O2 83 mmHg (61-120) Arterial Blood Oxygen Content 15.2 Vol % (12.0-20.0) Arterial Blood Carboxyhemoglobin 1.7 % (0-4) Arterial Blood Methemoglobin 0.3 % (0-2) Blood Gas Hemoglobin 11.4 G/DL (12.0-16.0) Oxygen Delivery Device NASAL CANNULA Blood Gas Liter Flow 2 L/M Imaging Last Impressions Head CT 01/03/18 7467 Signed Impressions: Service Date/Time: Wednesday, January 03, 2018 15:17 - CONCLUSION: Negative for an acute process. Sid Chilel MD FACR Chest X-Ray 01/03/18 1437 Signed Impressions: Service Date/Time: Wednesday, January 03, 2018 14:55 - CONCLUSION: No acute disease. Ricky Gómez Jr., MD Shoulder X-Ray 01/03/18 0000 Signed Impressions: Service Date/Time: Wednesday, January 03, 2018 15:00 - CONCLUSION: Degenerative changes of the a.c. joint. No acute abnormality. Ricky Gómez Jr., MD Objective Remarks GENERAL: 57-year-old male moving spontaneously /erratic movement in bed jaundice and encephalopathic SKIN: Warm and dry. Jaundice HEAD: Atraumatic. Normocephalic. EYES: Pupils equal and round. + scleral icterus. No injection or drainage. ENT: No nasal bleeding or discharge. Mucous membranes pink and moist. Edentulous NECK: Trachea midline. No JVD. CARDIOVASCULAR: Regular rate and rhythm. S1, S2. No S4 without murmur RESPIRATORY: Diminished breath sounds throughout. Positive end expiratory wheeze. No rales or rhonchi. GASTROINTESTINAL: Abdomen mildly distended. Hypoactive bowel sounds appreciated. Positive past megaly. MUSCULOSKELETAL: Extremities without clubbing, cyanosis, or edema. No obvious deformities. NEUROLOGICAL: Patient is off sedation (Propofol) greater than 48 hours , not responding to commands. Erratic movements of extremities x 4. Previously, motor grossly within normal limits. 5/5 muscle strength in the arms and legs. Positive asterixis A/P Assessment and Plan Neuro/Psych: Acute encephalopathy History of EtOH use/abuse THC use Noted allergy to acetaminophen/elevated transaminases Morphine sulfate if indicated for pain management Continue dexmedetomidine drip to maintain an RASS of 0 CT brain on admission revealed no acute intracranial findings Ammonia level trending down-45->32 continuing lactulose and rifaximin Consider LP via IR, when coagulopathy is corrected Seizure Precautions CV: Lactic acidosis Currently on normal saline at 84 cc an hour Not requiring vasopressors and/or antihypertensives Serial lactates until cleared. 5.7->3.2, most likely secondary to liver dysfunction Resp: Tobaccoism Nasal cannula to maintain saturations greater than or equal to 92% Incentive spirometry while awake, if possible 01/08Chest x-ray - bilateral airspace disease left greater than right GI: Elevated total bilirubin Elevated transaminases Hypoalbuminemia Cholelithiasis History of esophageal varices? Hyperammonia Alcoholic hepatitis Hepatitis C ESLD Total bilirubin was 30. Was 29 last week according to brother. Continue lactulose 30 cc 4 times daily and rifaximin 550 mg p.o. twice daily 01/04 CT abdomen/pelvis Localized ascites about the liver without tracking into the abdomen or pelvis. Dilation of the common bile duct up to 11 mm without calcified gallstones or calcifications in the common bile duct. The gallbladder appears mildly distended. Mild induration of the mesenteric fat in the right upper quadrant. We will treat for SBP see below Albumin BID- placed on hold, 2/ -sodium load MELD score 39 GI following 01/08 Begin Jevity 1.5, goal 65 cc/hour : Meadows catheter if indicated for accurate I's and O's in a critically ill patient. Endo: Sliding scale insulin if indicated to maintain euglycemia/low regimen with Novulin R TSH 0.53 Renal: Acute kidney injury? Creatinine 2.1. Unknown baseline. Check CT abdomen/pelvis rule out hydronephrosis. Urine electrolytes and eosinophils pending Monitor BMP .Creatinine 1.6->2.8 today Heme: Coagulopathy likely secondary to end-stage liver disease Repeat CBC pending post transfusions Heme consulted ID: Recent urinary tract infection Bandemia Vancomycin, cefepime and metronidazole initiated today. UA here is negative Blood cultures 2, UA and sputum all ordered along with influenza A and B FEN: Electrolyte derangement Sodium level 158, Phos 0.4, Potassium 2.2 Repletion of electrolytes per ICU protocol Albumin, normal saline infusions discontinued D5W at 75 cc/hour. Hypernatremia begin free water flushes 300 cc every 6 hours Monitor sodium levels every 6 hours MSK: PT evaluate and treat Access Utilized peripheral IV. Central line if indicated Prophylaxis GI -pantoprazole DVT -SCD/pharmacological prophylaxis is contraindicated with INR greater than 2.0 Discussed with STEAMER OPERATOR at bedside and patient's brother , all questions answered Critical Care: my billing statement This patient remains critically ill with one or more organ systems which are or may become a threat to life. I have spent in excess of 41 minutes discontinuously in the care and management of this patient. This time is exclusive of procedures, and includes, but is not limited to, evaluation of the patient, review of the medical record, discussions with family, consultants, nursing staff, or respiratory therapy, and documentation in the medical record. 01/07-Extensive discussion with family to include the patient's mother, brother and sister regarding the criticality of this patient's illness, MELD score. The patient has a very poor prognosis, family is considering possibly hospice. The patient's children will be arriving from [place] this weekend. And tentative plan for palliative conference on Wednesday to discuss/define goals of care. Physician Frida Sanchez MD Jan 08, 2018 14:17
--- NOTE | 2018-01-08 14:36 | HHI.GIFU ---
Subjective Remarks Pt still encephalopathic not able to arouse, having spontaneous movement, no bleeding reported by nurse. (Gissel Nicolas) Objective Vitals I&O Vital Signs Date Time Temp Pulse Resp B/P (MAP) Pulse Ox O2 Delivery O2 Flow Rate FiO2 01/08/18 12:00 98.5 80 18 172/99 (123) 97 01/08/18 12:00 80 01/08/18 11:00 76 01/08/18 10:00 74 01/08/18 09:00 90 01/08/18 08:00 98.8 81 16 134/88 (103) 99 01/08/18 08:00 81 01/08/18 07:00 72 01/08/18 06:00 74 01/08/18 04:00 80 01/08/18 04:00 80 19 141/81 (101) 96 01/08/18 02:00 68 01/08/18 00:00 97.7 86 16 120/78 (92) 99 01/08/18 00:00 86 01/07/18 22:00 80 01/07/18 20:00 98.8 88 16 112/70 (84) 98 01/07/18 20:00 88 01/07/18 19:45 99 Nasal Cannula 2.00 01/07/18 18:00 87 01/07/18 17:00 89 01/07/18 16:00 77 01/07/18 16:00 98.3 80 113/69 (84) 01/07/18 15:00 70 I/O 01/07/18 01/07/18 01/07/18 01/08/18 01/08/18 01/08/18 07:00 15:00 23:00 07:00 15:00 23:00 Intake Total 150 ml 1065 ml 1630 ml 2923 ml 1765 ml Output Total 4700 ml 900 ml 2500 ml 2625 ml Balance -4550 ml 165 ml -870 ml 298 ml 1765 ml IV Total 100 ml 1065 ml 1450 ml 2923 ml 1765 ml Tube Irrigant 50 ml Other 180 ml Output Urine Total 3700 ml 900 ml 1000 ml 2125 ml Stool Total 1000 ml 1500 ml 500 ml Laboratory Laboratory Tests Test 01/07/18 21:13 01/08/18 05:45 01/08/18 08:53 Ethyl Alcohol Level LESS THAN 3 Blood Gas Puncture Site RT RADIAL Blood Gas Patient Temperature 98.6 Blood Gas HCO3 22 Blood Gas Base Excess -1.1 Blood Gas Oxygen Saturation 94 Arterial Blood pH 7.47 Arterial Blood Partial Pressure CO2 31 Arterial Blood Partial Pressure O2 83 Arterial Blood Oxygen Content 15.2 Arterial Blood Carboxyhemoglobin 1.7 Arterial Blood Methemoglobin 0.3 Blood Gas Hemoglobin 11.4 Oxygen Delivery Device NASAL CANNULA Blood Gas Liter Flow 2 White Blood Count 17.5 Red Blood Count 3.13 Hemoglobin 11.8 Hematocrit 33.8 Mean Corpuscular Volume 108.2 Mean Corpuscular Hemoglobin 37.7 Mean Corpuscular Hemoglobin Concent 34.8 Red Cell Distribution Width 16.6 Platelet Count 49 Mean Platelet Volume 9.4 Neutrophils (%) (Auto) 94.4 Lymphocytes (%) (Auto) 1.9 Monocytes (%) (Auto) 3.6 Eosinophils (%) (Auto) 0.0 Basophils (%) (Auto) 0.1 Neutrophils # (Auto) 16.5 Lymphocytes # (Auto) 0.3 Monocytes # (Auto) 0.6 Eosinophils # (Auto) 0.0 Basophils # (Auto) 0.0 CBC Comment AUTO DIFF Differential Total Cells Counted 100 Neutrophils % (Manual) 77 Band Neutrophils % 19 Lymphocytes % 1 Monocytes % 3 Neutrophils # (Manual) 16.8 Differential Comment FINAL DIFF MANUAL Toxic Granulation 1+ Toxic Vacuolation PRESENT Platelet Estimate LOW Platelet Morphology Comment NORMAL Target Cells 1+ Acanthocytes OCC Prothrombin Time 32.8 Prothromb Time International Ratio 3.3 Fibrinogen 187 Blood Urea Nitrogen 27 Creatinine 1.39 Random Glucose 99 Total Protein 6.5 Albumin 2.8 Calcium Level 8.1 Phosphorus Level 0.4 Magnesium Level 1.6 Alkaline Phosphatase 93 Aspartate Amino Transf (AST/SGOT) 83 Alanine Aminotransferase (ALT/SGPT) 70 Total Bilirubin 25.7 Sodium Level 158 Potassium Level 2.2 Chloride Level 125 Carbon Dioxide Level 23.2 Anion Gap 10 Estimat Glomerular Filtration Rate 52 Lactic Acid Level 3.2 Ammonia 32 Date/Time Source Procedure Growth Status 01/03/18 21:57 Blood Peripheral Aerobic Blood Culture - Final NO GROWTH IN 5 DAYS Complete 01/03/18 21:57 Blood Peripheral Anaerobic Blood Culture - Final NO GROWTH IN 5 DAYS Complete 01/07/18 14:00 Stool Stool Stool Occult Blood (VIET) - Final HEMOCCULT POSITIVE Complete Imaging Last Impressions Chest X-Ray 01/07/18 0600 Signed Impressions: Service Date/Time: Sunday, January 07, 2018 04:18 - CONCLUSION: Bilateral airspace disease developing, left worse than right. Darnell Lay MD Abdomen/Pelvis CT 01/07/18 0000 Signed Impressions: Service Date/Time: Sunday, January 07, 2018 22:30 - CONCLUSION: 1. Increased fluid, with interval development of moderate amount of free fluid in the pelvis. 2. Interval development of intermediate opacity within the gallbladder lumen suggesting sludge. Ricky Milan MD Abdomen X-Ray 01/04/18 0000 Signed Impressions: Service Date/Time: Thursday, January 04, 2018 09:46 - CONCLUSION: 1. Suction type nasoenteric catheter tip in the distal stomach near the duodenal bulb. Stiven Mathis MD Head CT 01/03/18 1437 Signed Impressions: Service Date/Time: Wednesday, January 03, 2018 15:17 - CONCLUSION: Negative for an acute process. Sid Chilel MD FACR Shoulder X-Ray 01/03/18 0000 Signed Impressions: Service Date/Time: Wednesday, January 03, 2018 15:00 - CONCLUSION: Degenerative changes of the a.c. joint. No acute abnormality. Ricky Gómez Jr., MD Physical Exam HEENT: Eyes closed open randomly; normocephalic; atraumatic; + jaundice. NECK: Neck is supple, CHEST: Diminished breath sounds but no audible rhonchi CARDIAC: Regular rate and rhythm ABDOMEN: taut, diffuse tenderness to palpation , still has mild distention no hepatosplenomegaly; bowel sounds are present in all four quadrants. EXTREMITIES: No clubbing, cyanosis, or edema. SKIN: jeanette, dry; no rash; + jaundice. GRIEVANCE AND APPEALS COORDINATOR, drowsy moans to painful stimuli, moving extremities more today nonpurposeful, obtunded (Fidencio,Jiawjin PIANO ACCOMPANIST) Assessment and Plan Assessment: (1) Liver failure ICD Codes: K72.90 - Hepatic failure, unspecified without coma (2) Total bilirubin, elevated ICD Codes: R17 - Unspecified jaundice (3) Coagulopathy ICD Codes: D68.9 - Coagulation defect, unspecified (4) Hyperammonemia ICD Codes: E72.20 - Disorder of urea cycle metabolism, unspecified (5) Altered mental status ICD Codes: R41.82 - Altered mental status, unspecified (6) Elevated liver function tests ICD Codes: R79.89 - Other specified abnormal findings of blood chemistry (7) History of ETOH abuse ICD Codes: Z87.898 - Personal history of other specified conditions (8) Hepatic failure secondary to chronic hepatic disease ICD Codes: K72.90 - Hepatic failure, unspecified without coma Plan EtOH cirrhosis, end-stage liver disease, elevated ammonia levels, altered mental status, obtunded for now. When I get a lot of apathy Current labs show bilirubin at 24., LFTs 72/69, ammonia 155, PT INR 4.1, Possible history of colitis because according to ex-girlfriend EtOH hepatitis, not biliary. CT scan done on 01/03/18 localized ascites about the liver without tracking into the abdomen or pelvis. Dilatation of the common bile duct up to 11 mm without calcified gallstones or calcification of the common bile duct. The gallbladder appears mildly distended. Mild induration of the mesenteric fat into the right upper quadrant. Palliative care saw patient today for consult 01/06/18, the patient is full code full aggressive care. Current hemoglobin 11.5 Diarrhea thin brown bilious color dark via rectal Meadows still having moderate amounts of stool 01/08/18 Remains encephalopathic, ammonia levels trending down, he is on lactulose QID, no bleeding reported, INR still high Palliative on the case, family wish to cont. with aggressive tx, cont to have loose stools in the rectal bag. Plan Start TF Continue meds lactulose Trental SR/ Pentoxifylline PPI Protonix IV Flagyl IV Steroids IV poor prognosis Monitor labs with special attention to liver enzymes , ammonia level, hemoglobin, PT INR Monitor for any acute hemorrhage Further recommendations to follow based on patient's symptoms This patient was seen by myself and Dr. Cowart, written on his behalf (Gissel Nicolas) Physician Comments Agree with above assessment and plan. Will start TF today. Will follow up with you. (Brenda Cowart MD) Problem Qualifiers (1) Liver failure: Qualified Codes: K72.10 - Chronic hepatic failure without coma Gissel Nicolas Jan 08, 2018 14:36 Brenda Cowart MD Jan 08, 2018 17:32
[2018-01-08] MEDS: FREE WATER G-TUBE SCH (18:00)
[2018-01-08] MEDS: MULTIVITAMIN INJ 10 ML, FOLIC ACID INJ 1 MG in SODIUM CHLORID 0.9% 500 ML INJ 500 ML IV SCH (21:19)
[2018-01-08 21:24] LABS: PHOSPHORUS 0.9 MG/DL (2.5-4.9)
[2018-01-08] MEDS: POTASSIUM PHOSPHATE IV SCH ×2 (22:17)
[2018-01-08] MEDS: WATER IV SCH ×2 (22:17)
[2018-01-08] MEDS: DEXTROSE 5% IV SCH ×2 (22:17)
[2018-01-09] VITALS (21 sets, daily range): BP systolic 99–132; BP diastolic 63–87; PULSE 54–97; RESP 15–20; TEMP 97.6–98.5; O2SAT 89–96
[2018-01-09] MEDS: POTASSIUM CHLORIDE 25 MEQ EFFERVESCENT TAB PO PRN ×3 (00:15→22:00)
[2018-01-09] MEDS: DEXTROSE 5% IN WATE 1000ML INJ 1,000 ML IV SCH ×3 (00:27→23:45)
[2018-01-09] MEDS: VANCOMYCIN INJ 1,500 MG in SODIUM CHLORID 0.9% 500 ML INJ 500 ML IV SCH ×2 (00:29→18:39)
[2018-01-09] MEDS: POTASSIUM PHOSPHATE IV SCH ×2 (01:35)
[2018-01-09] MEDS: DEXTROSE 5% IV SCH ×2 (01:35)
[2018-01-09] MEDS: WATER IV SCH ×2 (01:35)
[2018-01-09] MEDS: metroNIDAZOLE 500 MG INJ 100 ML IV SCH ×4 (01:41→20:35)
[2018-01-09] MEDS: CHLORHEXIDINE GLUCONATE 2 % 1 PACK (2 CLOTHS) TOP SCH (01:41)
[2018-01-09] MEDS: methylPREDNISolone SOD SUCC 40 MG/1 ML VIAL IV PUSH SCH ×3 (05:07→20:36)
[2018-01-09] MEDS: INSULIN NovoLIN REGULAR SUPPLEMENTAL SCALE SQ SCH ×4 (05:07→18:00)
[2018-01-09] MEDS: PENTOXIFYLLINE 400 MG CONTROLLED RELEASE TAB PO SCH ×3 (05:07→20:36)
[2018-01-09] MEDS: FREE WATER G-TUBE SCH ×4 (05:07→17:00)
--- NOTE | 2018-01-09 05:53 | RADRPT ---
EXAM DATE/TIME: 01/09/2018 03:38 [facility] COMPARISON: CHEST SINGLE AP, January 07, 2018, 4:18. INDICATIONS : Shortness of breath, possible pulmonary disease. MEDICAL HISTORY : None. SURGICAL HISTORY : None. ENCOUNTER: Subsequent ACUITY: 4 - 6 days PAIN SCORE: Non-responsive. LOCATION: Bilateral chest FINDINGS: Patchy diffuse consolidation of the left lung not significantly changed. There is increasing consolid ation on the right, most conspicuous laterally of the midlung. No large effusion. No pneumothorax see n. Heart size stable, within normal limits. Nasogastric tube courses into the stomach. CONCLUSION: Bilateral airspace disease, worsening on the right and not significantly changed on the left. Darnell Lay MD on January 09, 2018 at 5:50 Board Certified Radiologist. This report was verified electronically.
[2018-01-09 06:56] LABS: AUTOMATED NEUTROPHIL # 19.3 TH/MM3 (1.8-7.7); BASOPHIL % 0.2 % (0.0-2.0); HEMATOCRIT 36.6 % (39.0-51.0); HEMOGLOBIN 12.6 GM/DL (13.0-17.0); LYMPH % 1.8 % (9.0-44.0); LYMPHOCYTE # 0.4 TH/MM3 (1.0-4.8); MEAN CELL VOLUME 107.8 FL (80.0-100.0); MEAN CORPUSCULAR HGB CONC 34.3 % (32.0-36.0); MEAN PLATELET VOLUME 11.2 FL (7.0-11.0); MONO % 3.8 % (0.0-8.0); MONOCYTE # 0.8 TH/MM3 (0-0.9); NEUT % 94.2 % (16.0-70.0); PLATELET COUNT 45 TH/MM3 (150-450); RED CELL DISTRIBUTION WIDTH 17.2 % (11.6-17.2); WHITE BLOOD COUNT 20.5 TH/MM3 (4.0-11.0)
[2018-01-09 07:53] LABS: CALCIUM 7.6 MG/DL (8.5-10.1); CREATININE 1.39 MG/DL (0.60-1.30); MAGNESIUM 1.8 MG/DL (1.5-2.5); PHOSPHORUS 2.4 MG/DL (2.5-4.9)
[2018-01-09] MEDS: LACTULOSE SYRUP 20 GM/30 ML CUP PO SCH ×4 (08:26→20:35)
[2018-01-09] MEDS: RIFAXIMIN 550 MG TAB PO SCH ×2 (08:26→20:36)
[2018-01-09] MEDS: PANTOPRAZOLE SODIUM 40 MG VIAL IV PUSH SCH (08:26)
[2018-01-09] MEDS: ARTIFICIAL TEARS OPTH SOLN 15 ML BTL EACH EYE SCH ×3 (08:27→18:00)
[2018-01-09] MEDS: PHYTONADIONE 10 MG/ML VIAL SQ SCH (08:27)
[2018-01-09] MEDS: SODIUM CHLORIDE 0.9% FLUSH 10 ML FLUSH IV FLUSH SCH ×2 (08:27→20:35)
[2018-01-09] MEDS: DOCUSATE SODIUM 50 MG/SENNA 8.6 MG TAB PO SCH ×2 (08:27→20:35)
[2018-01-09 09:10] LABS: BANDS 20 % (0-6); LYMPHOCYTES 6 % (9-44); MONOCYTES 5 % (0-8); POLYS (SEG NEUTROPHILS) 68 % (16-70)
[2018-01-09 09:11] LABS: ACANTHOCYTES 1+ (NORMAL); METAMYELOCYTES 1 % (0-1); NEUTROPHIL # MANUAL DIFF 18.2 TH/MM3 (1.8-7.7); TOXIC GRANULATION 1+ (NORMAL)
[2018-01-09 09:12] LABS: TARGET CELLS 1+ (NORMAL)
[2018-01-09 09:15] LABS: PROTHROMBIN TIME - PATIENT 31.9 SEC (9.8-11.6)
[2018-01-09 09:17] LABS: INTERNATIONAL NORMALIZED RATIO 3.2 RATIO
[2018-01-09] MEDS: CEFEPIME INJ 2,000 MG in SODIUM CHLORIDE 0.9% INJ 100 ML IV SCH ×2 (12:03→22:17)
[2018-01-09] MEDS: POTASSIUM CHLOR 20 MEQ PREMIX 100 ML IV PRN ×3 (12:51→22:00)
--- NOTE | 2018-01-09 14:07 | HHI.CCPN ---
Subjective Remarks/Hospital Course This is a 57-year-old male. Date of admission 01/03/2018. Past medical history includes end-stage liver disease secondary to alcohol. Patient ceased drinking tobacco December 20. Patient ceased smoking tobacco . He drank half a gallon of whiskey daily for an unspecified amount of time according to brother Gerardo and sister Lea. Patient was recently to [facility] with a total bilirubin 29 and elevated ammonia 170. At that time a CAT scan of the abdomen pelvis revealed ascites and cholelithiasis without cholecystitis. Patient was recently discharged from [facility] Today, patient was brought in under [facility] due to altered mental status and refusing to be transferred to the hospital. At this facility, patient noted to have lactic acidosis 5. Potassium 2.7, total bilirubin of 30 elevated transaminases. INR is currently 2.9. CBC is currently pending. X-ray of chest and shoulder revealed no acute findings. CT brain revealed no acute intracranial findings. Patient received 40 mEq potassium chloride for potassium 2.7. Patient received ampicillin, vancomycin and ceftriaxone for possible meningitis. A lumbar puncture was attempted by the ED physician unsuccessfully. We are asked to admit the patient. There is no repeat lactate was 5.2. Repeat ammonia level after initial is less than 10 is currently 81. Started on lactulose 30 cc 4 times daily and rifaximin 550 mg p.o. twice daily Subjective: 3: Afebrile . Patient remains on sedation with Precedex infusion. Coagulopathy labs pending this a.m. status post transfusion. Noted IV infiltration last evening in the ED left arm significantly edematous. 01/05: Sedation minimized ,patient aggressive/ combative thrashing wildly completely disoriented and not responding to any commands. Ammonia continues to be elevated 144. 01/06: Sedation discontinued. Patient remains encephalopathic. Ammonia level continues to increase, despite rifaximin and lactulose. Otitis panel revealed return notable for hepatitis C. Patient continues to be coagulopathic, INR 4.1, Fibrinogen 163, platelet count 26 this a.m.. FFP, vitamin K ,cryoprecipitate and platelets being transfused. Hematology has been consulted. GI has been consulted. 01/07: Patient has been off sedation for greater than 24 hours, remains encephalopathic. Ammonia level trending down. INR continues to be elevated, patient to receive 5 mg of vitamin K. Extensive discussion with family regarding the patient's condition, and poor prognosis. Palliative care is following. 01/08: The patient remains encephalopathic. Ammonia level trending down patient continues on lactulose 4 times a day. Plan for repeat CT brain in a.m. Tube feeds initiated Jevity 1.5 at 65 cc/hour. Patient notably having more spontaneous movement today , not following commands. Sodium level noted to be elevated, albumin placed on hold sodium labs initiated every 6 hours. D5W infusion initiated. Patient's children to arrive at 8 PM tonight, tentative plan to have a family conference in a.m.. 01/09: The patient remains encephalopathic. No neurological changes . CT brain pending .Ammonia level slightly increased despite lactulose 4 times a day. Repeat EEG scheduled in the a.m. Hemodynamically stable. Family conference convene this a.m. with the patient's children, and brother. Provided update in medical status. Discussion regarding possibility of hospice, family is deciding. Plan for palliative care team meeting in a.m.. Family (3 daughters) has decided to make patient DNR,code status changed. Objective Vital Signs Date Time Temp Pulse Resp B/P (MAP) Pulse Ox O2 Delivery O2 Flow Rate FiO2 01/09/18 10:00 91 01/09/18 08:35 94 Nasal Cannula 2.00 01/09/18 08:00 98.3 18 132/84 (100) Intake and Output 01/09/18 01/09/18 01/10/18 08:00 16:00 00:00 Intake Total 3460.2 ml Output Total 1800 ml Balance 1660.2 ml Result Diagram: 01/09/18 0559 01/09/18 1050 Other Results Microbiology Date/Time Source Procedure Growth Status 01/07/18 14:00 Stool Stool Stool Occult Blood (VIET) - Final HEMOCCULT POSITIVE Complete Imaging Last Impressions Chest X-Ray 01/09/18 0600 Signed Impressions: Service Date/Time: Tuesday, January 09, 2018 03:38 - CONCLUSION: Bilateral airspace disease, worsening on the right and not significantly changed on the left. Darnell Lay MD Abdomen/Pelvis CT 01/07/18 0000 Signed Impressions: Service Date/Time: Sunday, January 07, 2018 22:30 - CONCLUSION: 1. Increased fluid, with interval development of moderate amount of free fluid in the pelvis. 2. Interval development of intermediate opacity within the gallbladder lumen suggesting sludge. Ricky Milan MD Abdomen X-Ray 01/04/18 0000 Signed Impressions: Service Date/Time: Thursday, January 04, 2018 09:46 - CONCLUSION: 1. Suction type nasoenteric catheter tip in the distal stomach near the duodenal bulb. Stiven Mathis MD Head CT 01/03/18 1437 Signed Impressions: Service Date/Time: Wednesday, January 03, 2018 15:17 - CONCLUSION: Negative for an acute process. Sid Chilel MD FACR Shoulder X-Ray 01/03/18 0000 Signed Impressions: Service Date/Time: Wednesday, January 03, 2018 15:00 - CONCLUSION: Degenerative changes of the a.c. joint. No acute abnormality. Ricky Gómez Jr., MD Last Impressions Head CT 01/03/187 Signed Impressions: Service Date/Time: Wednesday, January 03, 2018 15:17 - CONCLUSION: Negative for an acute process. Sid Chilel MD FACR Chest X-Ray 01/03/18 1437 Signed Impressions: Service Date/Time: Wednesday, January 03, 2018 14:55 - CONCLUSION: No acute disease. Ricky Gómez Jr., MD Shoulder X-Ray 01/03/18 0000 Signed Impressions: Service Date/Time: Wednesday, January 03, 2018 15:00 - CONCLUSION: Degenerative changes of the a.c. joint. No acute abnormality. Ricky Gómez Jr., MD Objective Remarks GENERAL: 57-year-old male moving spontaneously /erratic movement in bed jaundice and encephalopathic SKIN: Warm and dry. Jaundice HEAD: Atraumatic. Normocephalic. EYES: Pupils equal and round. + scleral icterus. No injection or drainage. ENT: No nasal bleeding or discharge. Mucous membranes pink and moist. Edentulous NECK: Trachea midline. No JVD. CARDIOVASCULAR: Regular rate and rhythm. S1, S2. No S4 without murmur RESPIRATORY: Diminished breath sounds throughout. Positive end expiratory wheeze. No rales or rhonchi. GASTROINTESTINAL: Abdomen mildly distended. Hypoactive bowel sounds appreciated. MUSCULOSKELETAL: Extremities without clubbing, cyanosis, or edema. No obvious deformities. NEUROLOGICAL: Patient is off sedationall sedation > 3 days, not responding to commands. Erratic movements of extremities x 4. Previously, on admission motor grossly within normal limits. 5/5 muscle strength in the arms and legs. Positive asterixis A/P Assessment and Plan Neuro/Psych: Acute encephalopathy History of EtOH use/abuse THC use Noted allergy to acetaminophen/elevated transaminases Morphine sulfate if indicated for pain management Continue dexmedetomidine drip to maintain an RASS of 0 CT brain on admission revealed no acute intracranial findings Ammonia level 45->32->35 continuing lactulose and rifaximin Consider LP via IR, when coagulopathy is corrected Seizure Precautions 01/09 F/U CT brain CV: Lactic acidosis Currently on D5W at 84 cc an hour Not requiring vasopressors and/or antihypertensives Serial lactates until cleared. 5.7->3.2most likely secondary to liver dysfunction Resp: Tobaccoism Nasal cannula to maintain saturations greater than or equal to 92% Incentive spirometry while awake, if possible 01/08Chest x-ray - bilateral airspace disease left greater than right GI: Elevated total bilirubin Elevated transaminases Hypoalbuminemia Cholelithiasis History of esophageal varices? Hyperammonia Alcoholic hepatitis Hepatitis C ESLD Total bilirubin was 30. Was 29 last week according to brother. Continue lactulose 30 cc 4 times daily and rifaximin 550 mg p.o. twice daily 01/04 CT abdomen/pelvis Localized ascites about the liver without tracking into the abdomen or pelvis. Dilation of the common bile duct up to 11 mm without calcified gallstones or calcifications in the common bile duct. The gallbladder appears mildly distended. Mild induration of the mesenteric fat in the right upper quadrant. We will treat for SBP see below Albumin BID- placed on hold, 2/2 -sodium load MELD score 39 GI following 01/08 Begin Jevity 1.5, goal 65 cc/hour Trend ammonia level : Meadows catheter if indicated for accurate I's and O's in a critically ill patient. Endo: Sliding scale insulin if indicated to maintain euglycemia/low regimen with Novulin R TSH 0.53 Renal: Acute kidney injury? Creatinine 2.1. Unknown baseline. Check CT abdomen/pelvis rule out hydronephrosis. Urine electrolytes and eosinophils pending Monitor BMP .Creatinine 1.3 today Heme: Coagulopathy likely secondary to end-stage liver disease Repeat CBC pending post transfusions Heme consulted ID: Recent urinary tract infection Bandemia Vancomycin, cefepime and metronidazole initiated today. UA here is negative Blood cultures 2, UA and sputum all ordered along with influenza A and B FEN: Electrolyte derangement Sodium level 158 Repletion of electrolytes per ICU protocol 01/08 Albumin, normal saline infusions discontinued D5W at 84cc/hour. Continue free water flushes 300 cc every 6 hours Monitor sodium levels every 6 hours MSK: PT evaluate and treat Access Utilized peripheral IV. Central line if indicated Prophylaxis GI -pantoprazole DVT -SCD/pharmacological prophylaxis is contraindicated with INR greater than 2.0 Family conference which included patient's 3 daughters , patient's brother .provided medical status update, all questions answered. CODE STATUS changed to DNR Critical Care: my billing statement This patient remains critically ill with one or more organ systems which are or may become a threat to life. I have spent in excess of 67 minutes discontinuously in the care and management of this patient. This time is exclusive of procedures, and includes, but is not limited to, evaluation of the patient, review of the medical record, discussions with family, consultants, nursing staff, or respiratory therapy, and documentation in the medical record. 01/07-Extensive discussion with family to include the patient's mother, brother and sister regarding the criticality of this patient's illness, MELD score. The patient has a very poor prognosis, family is considering possibly hospice. The patient's children will be arriving from [place] this . And tentative plan for palliative conference on Wednesday to discuss/define goals of care. Physician Frida Sanchez MD Jan 09, 2018 14:07
--- NOTE | 2018-01-09 17:28 | PD.ONC.PN ---
Subjective Subjective Remarks Afebrile overnight Patient remains obtunded Nonpurposeful movements Per [facility]RIER, family has made him a DNR today Objective Data Date Time Temp Pulse Resp B/P (MAP) Pulse Ox O2 Delivery O2 Flow Rate FiO2 01/09/18 15:00 97 01/09/18 14:00 96 01/09/18 13:00 92 01/09/18 12:00 94 01/09/18 11:00 88 01/09/18 10:00 91 01/09/18 09:00 85 01/09/18 08:35 94 Nasal Cannula 2.00 01/09/18 08:00 80 01/09/18 08:00 98.3 80 18 132/84 (100) 94 01/09/18 07:00 78 01/09/18 06:00 73 01/09/18 04:00 98.2 60 17 121/76 (91) 94 01/09/18 04:00 60 01/09/18 02:00 54 01/09/18 00:30 56 01/09/18 00:00 98.0 66 15 120/77 (91) 96 01/09/18 00:00 78 01/08/18 22:00 75 01/08/18 21:15 96 01/08/18 20:00 98.3 70 17 134/83 (100) 94 01/08/18 20:00 69 01/08/18 18:00 84 01/09/18 01/09/18 01/09/18 07:00 15:00 23:00 Intake Total 3460.2 ml Output Total 1800 ml Balance 1660.2 ml Result Diagram: 01/09/18 0559 01/09/18 1351 Laboratory Results Laboratory Tests Test 01/08/18 19:50 01/09/18 05:59 01/09/18 08:15 01/09/18 10:50 Sodium Level 160 MEQ/L 158 MEQ/L 158 MEQ/L Potassium Level 1.9 MEQ/L 2.4 MEQ/L Phosphorus Level 0.9 MG/DL 2.4 MG/DL White Blood Count 20.5 TH/MM3 Red Blood Count 3.40 MIL/MM3 Hemoglobin 12.6 GM/DL Hematocrit 36.6 % Mean Corpuscular Volume 107.8 FL Mean Corpuscular Hemoglobin 37.0 PG Mean Corpuscular Hemoglobin Concent 34.3 % Red Cell Distribution Width 17.2 % Platelet Count 45 TH/MM3 Mean Platelet Volume 11.2 FL Neutrophils (%) (Auto) 94.2 % Lymphocytes (%) (Auto) 1.8 % Monocytes (%) (Auto) 3.8 % Eosinophils (%) (Auto) 0.0 % Basophils (%) (Auto) 0.2 % Neutrophils # (Auto) 19.3 TH/MM3 Lymphocytes # (Auto) 0.4 TH/MM3 Monocytes # (Auto) 0.8 TH/MM3 Eosinophils # (Auto) 0.0 TH/MM3 Basophils # (Auto) 0.0 TH/MM3 CBC Comment AUTO DIFF Differential Total Cells Counted 100 Neutrophils % (Manual) 68 % Band Neutrophils % 20 % Lymphocytes % 6 % Monocytes % 5 % Neutrophils # (Manual) 18.2 TH/MM3 Metamyelocytes 1 % Differential Comment FINAL DIFF MANUAL Toxic Granulation 1+ Platelet Estimate LOW Platelet Morphology Comment ENLARGED Target Cells 1+ Acanthocytes 1+ Prothrombin Time 31.9 SEC Prothromb Time International Ratio 3.2 RATIO Fibrinogen 185 mg/dL Blood Urea Nitrogen 30 MG/DL Creatinine 1.39 MG/DL Random Glucose 150 MG/DL Calcium Level 7.6 MG/DL Magnesium Level 1.8 MG/DL Chloride Level 124 MEQ/L Carbon Dioxide Level 24.0 MEQ/L Anion Gap 10 MEQ/L Estimat Glomerular Filtration Rate 52 ML/MIN Ammonia 35 MCMOL/L Urine Eosinophils NONE SEEN /HPF Test 01/09/18 13:51 Sodium Level 160 MEQ/L Culture Results Microbiology Date/Time Source Procedure Growth Status 01/07/18 14:00 Stool Stool Stool Occult Blood (VIET) - Final HEMOCCULT POSITIVE Complete 01/09/18 08:15 Urine Catheterized Urine Urine Culture Pending Received Imaging Studies Last 24 hours Impressions Chest X-Ray 01/09/18 0600 Signed Impressions: Service Date/Time: Tuesday, January 09, 2018 03:38 - CONCLUSION: Bilateral airspace disease, worsening on the right and not significantly changed on the left. Darnell Lay MD Administered Medications Medications (Trade) Dose Ordered Sig/Stone Route PRN Reason Start Time Stop Time Status Last Admin Dose Admin Sodium Chloride (NS Flush) 2 ml BID IV FLUSH 01/03/18 21:00 01/09/18 08:27 Pantoprazole Sodium (Protonix Inj) 40 mg DAILY IV PUSH 01/04/18 09:00 01/09/18 08:26 Lorazepam (Ativan Inj) 1 mg Q1H PRN IV PUSH Agitation/Sedation 01/03/18 18:45 Future Hold 01/05/18 09:22 Artificial Tears (Tears Naturale Opth Soln) 1 drop TID EACH EYE 01/04/18 09:00 01/09/18 13:00 Ondansetron HCl (Zofran Inj) 4 mg Q6H PRN IV PUSH NAUSEA OR VOMITING 01/03/18 18:45 01/08/18 00:49 Miscellaneous Information 1 [id number] XX 01/03/18 18:45 01/03/18 18:45 Chlorhexidine Gluconate (Chlorhexidine 2% Cloth) Taper DAILY@04 TOP 01/04/18 04:00 12/31/18 03:59 01/08/18 04:00 Senna/Docusate Sodium (Christine-Colace) 1 tab BID PO 01/03/18 21:00 01/08/18 20:44 Cefepime HCl 2000 mg/Sodium Chloride 100 ml @ 200 mls/hr Q12H IV 01/03/18 23:00 01/09/18 12:03 Metronidazole 100 ml @ 100 mls/hr Q6H IV 01/03/18 20:00 01/09/18 16:58 Lactulose (Lactulose Liq) 30 ml QID PO 01/03/18 21:00 01/09/18 16:59 Rifaximin (Xifaxan) 550 mg BID PO 01/03/18 21:00 01/09/18 08:26 Vancomycin HCl 1500 mg/Sodium Chloride 515 ml @ 250 mls/hr Q18H IV 01/04/18 12:00 01/09/18 00:29 Dexmedetomidine HCl 1000 mcg/ Sodium Chloride 250 ml @ 3.75 mls/hr TITRATE PRN IV SEDATION 01/05/18 17:15 Future Hold 01/06/18 03:55 Albumin Human 250 ml @ 250 mls/hr Q12H IV 01/05/18 21:00 Future Hold 01/08/18 08:08 Multivitamins 10 ml/Folic Acid 1 mg/Sodium Chloride 510.2 ml @ 125 mls/hr Q24H IV 01/05/18 22:00 01/10/18 21:59 01/08/18 21:19 Potassium Chloride 100 ml @ 50 mls/hr Q2H PRN IV For Potassium 2.8 - 3.2 mEq/L 01/06/18 08:00 01/08/18 00:49 Potassium Bicarb/ Potassium Chloride (K-Lyte Cl Eff) 50 meq UNSCH PRN PO For Potassium 3.3 - 3.5 mEq/L 01/06/18 08:00 01/09/18 08:26 Potassium Chloride 100 ml @ 50 mls/hr Q2H PRN IV For Potassium 3.3 - 3.5 mEq/L 01/06/18 08:00 01/09/18 15:01 Potassium Phosphate 30 mmol/ Sodium Chloride 260 ml @ 42 mls/hr UNSCH PRN IV SEE LABEL COMMENTS 01/06/18 08:00 01/08/18 11:31 Methylprednisolone Sodium Succinate (SoluMEDROL INJ) 40 mg Q8HR IV PUSH 01/06/18 17:15 01/09/18 16:59 Phytonadione (Vitamin K Inj) 5 mg DAILY SQ 01/07/18 12:30 01/09/18 08:27 Dextrose 1,000 ml @ 84 mls/hr [id number] IV 01/08/18 12:00 01/09/18 17:00 Water (Free Water) VOLUME: 300 ML Q6HR G-TUBE 01/08/18 18:00 01/09/18 17:00 Objective Remarks GENERAL: Older male resting in bed. He has nonpurposeful movements. SKIN: Warm and dry. +jaundiced HEAD: Normocephalic. EYES: ++ scleral icterus. No injection or drainage. NECK: Supple, trachea midline CARDIOVASCULAR: +S1/S2 RESPIRATORY: Scattered rhonchi anteriorly. GASTROINTESTINAL: Abdomen soft, non-tender, nondistended. NG tube in place EXTREMITIES: No cyanosis. No edema Assessment/Plan Problem List: (1) Coagulopathy ICD Codes: D68.9 - Coagulation defect, unspecified Plan: --Coagulopathy in patient with end stage liver disease. --Due to severe liver dysfunction, he is unable to make clotting factors. --monitor his INR and fibrinogen daily. --if fibrinogen is less than 150, transfuse 2 units of cryoprecipitate. --give vitamin K as needed to keep his INR less than 1.7. -->started on Vitamin K 5mg SQ daily on 01/07 (2) Thrombocytopenia ICD Codes: D69.6 - Thrombocytopenia, unspecified Plan: --due to liver disease and sepsis. --haptoglobin low normal, LDH elevated. --transfuse to keep platelet count greater than 30,000 in this acutely ill patient who is at a high risk for bleeding. (3) Macrocytic anemia ICD Codes: D53.9 - Nutritional anemia, unspecified Plan: -- likely from alcoholism. --GI following. --stool Hemoccult positive (4) Encephalopathy ICD Codes: G93.40 - Encephalopathy, unspecified Plan: -- secondary to alcoholic liver disease. Management per primary team. Assessment 57y/o admitted as trevizo act. 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 --hepatitis C Plan 1. Fibrinogen 185 today. Plan for transfusion of cryo less than 150 2. Continue vitamin K for INR greater than 1.7. 3. Monitor CBC, coags Attending Statement The exam, history, and the medical decision-making described in the above note were completed with the assistance of the mid-level provider. I reviewed and agree with the findings presented. I attest that I had a [id number] encounter with the patient on the same day, and personally performed and documented my assessment and findings in the medical record. Pt is obtunded, does not respond to vocal commands. Family have made him DNR today. Has ESLD. FFP or cryo if bleed. Continue Vit K. Frances Lucio Jan 09, 2018 17:28 Shellie Erickson MD Jan 09, 2018 22:44
[2018-01-09] MEDS: MULTIVITAMIN INJ 10 ML, FOLIC ACID INJ 1 MG in SODIUM CHLORID 0.9% 500 ML INJ 500 ML IV SCH (20:36)
[2018-01-10] VITALS (11 sets, daily range): BP systolic 46–152; BP diastolic 28–99; PULSE 98–151; RESP 9–32; TEMP 98–98.7; O2SAT 91–95
[2018-01-10] MEDS: POTASSIUM CHLOR 20 MEQ PREMIX 100 ML IV PRN ×3 (00:02→05:50)
[2018-01-10] MEDS: CHLORHEXIDINE GLUCONATE 2 % 1 PACK (2 CLOTHS) TOP SCH (00:25)
[2018-01-10] MEDS: metroNIDAZOLE 500 MG INJ 100 ML IV SCH ×3 (01:23→12:43)
[2018-01-10] MEDS ORDERED: METOPROLOL TARTRATE 5 MG/5 ML VIAL IV PUSH ONE (03:15)
[2018-01-10] MEDS ORDERED: FUROSEMIDE 40 MG/4 ML VIAL IV PUSH ONE (04:05)
[2018-01-10] MEDS ORDERED: FUROSEMIDE 40 MG/4 ML VIAL ONE (04:09)
[2018-01-10 04:36] LABS: AUTOMATED NEUTROPHIL # 22.8 TH/MM3 (1.8-7.7); BASOPHIL # 0.1 TH/MM3 (0-0.2); BASOPHIL % 0.2 % (0.0-2.0); HEMATOCRIT 37.9 % (39.0-51.0); HEMOGLOBIN 13.1 GM/DL (13.0-17.0); LYMPHOCYTE # 0.2 TH/MM3 (1.0-4.8); MEAN CELL VOLUME 108.2 FL (80.0-100.0); MEAN CORPUSCULAR HEMOGLOBIN 37.3 PG (27.0-34.0); MEAN CORPUSCULAR HGB CONC 34.5 % (32.0-36.0); MEAN PLATELET VOLUME 10.4 FL (7.0-11.0); MONO % 4.8 % (0.0-8.0); MONOCYTE # 1.2 TH/MM3 (0-0.9); PLATELET COUNT 35 TH/MM3 (150-450); RED BLOOD COUNT 3.51 MIL/MM3 (4.50-5.90); RED CELL DISTRIBUTION WIDTH 17.6 % (11.6-17.2); WHITE BLOOD COUNT 24.3 TH/MM3 (4.0-11.0)
[2018-01-10 05:07] LABS: ALBUMIN 2.4 GM/DL (3.4-5.0); ALKALINE PHOSPHATASE 169 U/L (45-117); ALT (GPT) 88 U/L (12-78); AST (GOT) 87 U/L (15-37); BICARBONATE 20.4 MEQ/L (21.0-32.0); BLOOD UREA NITROGEN 32 MG/DL (7-18); CALCIUM 7.7 MG/DL (8.5-10.1); CHLORIDE 127 MEQ/L (98-107); CREATININE 1.43 MG/DL (0.60-1.30); GLOMERULAR FILTRATION RATE 51 ML/MIN (>89); GLUCOSE,RANDOM 159 MG/DL (74-106); MAGNESIUM 1.6 MG/DL (1.5-2.5); TOTAL PROTEIN 6.4 GM/DL (6.4-8.2)
[2018-01-10 05:12] LABS: TOTAL BILIRUBIN ADULT 26.8 MG/DL (0.2-1.0)
[2018-01-10 05:14] LABS: SODIUM (NA) 160 MEQ/L (136-145)
--- NOTE | 2018-01-10 05:15 | RADRPT ---
EXAM DATE/TIME: 01/10/2018 04:04 [facility] COMPARISON: CHEST SINGLE AP, January 09, 2018, 3:38. INDICATIONS : Shortness of breath, possible pulmonary disease. MEDICAL HISTORY : None. SURGICAL HISTORY : None. ENCOUNTER: Subsequent ACUITY: 4 - 6 days PAIN SCORE: 0/10 LOCATION: Bilateral chest FINDINGS: Patchy bilateral infiltrates are unchanged. No effusions. No pneumothorax. Heart is normal in size. CONCLUSION: Unchanged bilateral patchy infiltrates. Ricky Gómez Jr., MD on January 10, 2018 at 5:12 Board Certified Radiologist. This report was verified electronically.
[2018-01-10] MEDS: FREE WATER G-TUBE SCH ×3 (05:49→10:58)
[2018-01-10] MEDS: INSULIN NovoLIN REGULAR SUPPLEMENTAL SCALE SQ SCH ×3 (05:49→11:34)
[2018-01-10] MEDS: PENTOXIFYLLINE 400 MG CONTROLLED RELEASE TAB PO SCH ×2 (05:49→13:07)
[2018-01-10] MEDS: methylPREDNISolone SOD SUCC 40 MG/1 ML VIAL IV PUSH SCH ×2 (06:18→13:07)
[2018-01-10] MEDS: PANTOPRAZOLE SODIUM 40 MG VIAL IV PUSH SCH (09:00)
[2018-01-10] MEDS: PHYTONADIONE 10 MG/ML VIAL SQ SCH (09:00)
[2018-01-10] MEDS: SODIUM CHLORIDE 0.9% FLUSH 10 ML FLUSH IV FLUSH SCH (09:00)
[2018-01-10] MEDS: LACTULOSE SYRUP 20 GM/30 ML CUP PO SCH ×2 (09:00→12:43)
[2018-01-10] MEDS: ARTIFICIAL TEARS OPTH SOLN 15 ML BTL EACH EYE SCH ×2 (09:00→12:43)
[2018-01-10] MEDS: RIFAXIMIN 550 MG TAB PO SCH (09:00)
[2018-01-10] MEDS: DOCUSATE SODIUM 50 MG/SENNA 8.6 MG TAB PO SCH (09:00)
[2018-01-10] MEDS ORDERED: MORPHINE SULFATE 8 MG/ML INJ IV PUSH ONE (09:30)
[2018-01-10] MEDS ORDERED: LORazepam 2 MG/ML VIAL IV PUSH ONE (09:30)
[2018-01-10 09:38] LABS: BANDS 4 % (0-6); LYMPHOCYTES 1 % (9-44); METAMYELOCYTES 2 % (0-1); MONOCYTES 1 % (0-8); NEUTROPHIL # MANUAL DIFF 23.8 TH/MM3 (1.8-7.7); POLYS (SEG NEUTROPHILS) 92 % (16-70)
--- NOTE | 2018-01-10 09:51 | HHI.HCPN ---
Reason for visit a. To assist with evaluation and management of symptoms including: Dyspnea, pain b. To assist medical decision maker(s) with: better understanding of current medical conditions; weighing benefits/burdens of medical treatment options; making medical treatment decisions. Subjective/Interval History Patient seen for follow-up for symptom management and goals of care. Contacted by the AGRISCIENCE TEACHER caring for the patient this morning, Terrence, to notify palliative care that patient was actively dying and family is at bedside. Patient seen to be unresponsive, severely jaundiced, tachypneic, tachycardic, intermittent agonal breathing. Laboratory results show WBC 24.3, hemoglobin 13.1, hematocrit 37.9, platelets 35,000, prothrombin time 31.9, INR 3.2, fibrinogen 185, sodium 160, potassium 3.0, BUN 32, creatinine 1.43, random glucose 159, AST 87, ALT 88, alkaline phosphatase 169, total bilirubin 26.8, albumin 2.4. Chest x-ray this morning showed patchy bilateral infiltrates unchanged without effusion or pneumothorax. Discussed condition with patient's nurse, Terrence and Dr. Schultz. As patient is actively in the process of dying, comfort medications will be initiated on an basis. . Family/friend interactions Spoke with family at bedside to include all 3 daughters, ex-, brother, sister and mother. Patient has since been made a DO NOT RESUSCITATE status. Family states that they recognize he is actively dying and wish him only to be comfortable. Ativan and morphine ordered on a now basis per my discussion with Dr. Schultz and that order conveyed to the nurse for immediate administration for patient comfort. Family is appreciated palliative care support and focus on patient comfort. . Advance Directives Durable Power of Etymology Professor: Completed, but not made available Advance Directive Specifics Health Care Surrogate(s): -Healthcare proxy's [id number] [phone] cell/ [phone] home- Opted out of decision making as health care proxy Daughter- Mimi Ramos Daughter-Ivana Rios . Objective Vital Signs Date Time Temp Pulse Resp B/P (MAP) Pulse Ox O2 Delivery O2 Flow Rate FiO2 01/10/18 06:00 116 01/10/18 05:30 93 Simple Mask 10.00 01/10/18 04:00 98 3/12/18 04:00 98.7 98 25 145/97 (113) 91 01/10/18 02:00 107 01/10/18 00:00 99 01/10/18 00:00 98.0 99 24 127/87 (100) 92 01/09/18 22:00 96 01/09/18 21:43 94 Nasal Cannula 3.00 01/09/18 20:00 97.6 77 20 99/68 (78) 93 01/09/18 20:00 74 01/09/18 18:00 91 01/09/18 17:00 87 01/09/18 16:00 98.3 84 18 99/63 (75) 89 01/09/18 16:00 84 01/09/18 15:00 97 01/09/18 14:00 96 01/09/18 13:00 92 01/09/18 12:00 98.5 94 20 132/87 (102) 94 01/09/18 12:00 94 01/09/18 11:00 88 01/09/18 10:00 91 Intake & Output 01/10/18 01/10/18 07:00 19:00 Intake Total 3631.2 ml Output Total 2200 ml Balance 1431.2 ml IV Total 2381.2 ml Tube Feeding 650 ml Other 600 ml Output Urine Total 1500 ml Stool Total 700 ml Physical Exam CONSTITUTIONAL/GENERAL: This is a 57 yo male who appears older than is age, restless TUBES/LINES/DRAINS: Meadows catheter, PIV, SCDs, NG tube, rectal bag SKIN: Severe jaundice, Dry scaly skin, Skin temperature appropriate cool. Not diaphoretic. HEAD: Atraumatic. Normocephalic. EYES: Pupils equal and round and sluggishly reactive. Scleral icterus. Fundi not examined. ENT: Unable to assess his hearing. Nose without bleeding or purulent drainage. Edentulous. NECK: Trachea midline. Supple, nontender. CARDIOVASCULAR: S1, S2, tachycardic rate regular rhythm, no rub murmur or gallop auscultated. RESPIRATORY/CHEST: Diminished bilaterally, agonal breathing, scattered rhonchi. GASTROINTESTINAL: Abdomen soft, distended. Bowel sounds hypoactive. Liquid stool in rectal bag GENITOURINARY: Without palpable bladder distension. Meadows catheter in place. MUSCULOSKELETAL: Trace peripheral edema. NEUROLOGICAL: Unresponsive PSYCHIATRIC: Unresponsive . Diagnostic Tests Laboratory Laboratory Tests Test 01/07/18 10:26 01/07/18 11:45 01/07/18 14:00 01/07/18 21:13 Prothrombin Time 27.4 SEC (9.8-11.6) Prothromb Time International Ratio 2.7 RATIO Fibrinogen 203 mg/dL (227-377) Blood Urea Nitrogen 25 MG/DL (7-18) Creatinine 1.46 MG/DL (0.60-1.30) Random Glucose 109 MG/DL (74-106) Total Protein 6.3 GM/DL (6.4-8.2) Albumin 2.6 GM/DL (3.4-5.0) Calcium Level 8.3 MG/DL (8.5-10.1) Phosphorus Level 0.2 MG/DL (2.5-4.9) Magnesium Level 1.5 MG/DL (1.5-2.5) Alkaline Phosphatase 84 U/L (45-117) Aspartate Amino Transf (AST/SGOT) 68 U/L (15-37) Alanine Aminotransferase (ALT/SGPT) 60 U/L (12-78) Lactate Dehydrogenase 342 U/L (87-241) Total Bilirubin 24.6 MG/DL (0.2-1.0) Sodium Level 154 MEQ/L (136-145) Potassium Level 3.1 MEQ/L (3.5-5.1) Chloride Level 120 MEQ/L (98-107) Carbon Dioxide Level 20.3 MEQ/L (21.0-32.0) Anion Gap 14 MEQ/L (5-15) Estimat Glomerular Filtration Rate 49 ML/MIN (>89) Lactic Acid Level 5.8 mmol/L (0.4-2.0) Ammonia 45 MCMOL/L (11-32) White Blood Count 16.9 TH/MM3 (4.0-11.0) Red Blood Count 3.16 MIL/MM3 (4.50-5.90) Hemoglobin 11.8 GM/DL (13.0-17.0) Hematocrit 33.8 % (39.0-51.0) Mean Corpuscular Volume 106.9 FL (80.0-100.0) Mean Corpuscular Hemoglobin 37.3 PG (27.0-34.0) Mean Corpuscular Hemoglobin Concent 34.9 % (32.0-36.0) Red Cell Distribution Width 16.2 % (11.6-17.2) Platelet Count 55 TH/MM3 (150-450) Mean Platelet Volume 9.5 FL (7.0-11.0) Neutrophils (%) (Auto) 93.6 % (16.0-70.0) Lymphocytes (%) (Auto) 1.8 % (9.0-44.0) Monocytes (%) (Auto) 4.5 % (0.0-8.0) Eosinophils (%) (Auto) 0.0 % (0.0-4.0) Basophils (%) (Auto) 0.1 % (0.0-2.0) Neutrophils # (Auto) 15.8 TH/MM3 (1.8-7.7) Lymphocytes # (Auto) 0.3 TH/MM3 (1.0-4.8) Monocytes # (Auto) 0.8 TH/MM3 (0-0.9) Eosinophils # (Auto) 0.0 TH/MM3 (0-0.4) Basophils # (Auto) 0.0 TH/MM3 (0-0.2) CBC Comment AUTO DIFF Differential Total Cells Counted 100 Neutrophils % (Manual) 75 % (16-70) Band Neutrophils % 25 % (0-6) Neutrophils # (Manual) 16.9 TH/MM3 (1.8-7.7) Nucleated Red Blood Cells 1 /100 WBC (0-0) Differential Comment FINAL DIFF MANUAL Toxic Granulation 1+ (NORMAL) Platelet Estimate LOW (NORMAL) Platelet Morphology Comment NORMAL (NORMAL) Stool C. difficile Toxin (PCR) NEGATIVE (NEGATIVE) Stl C. difficile Toxin Epiderm 027 PRESUMPTIVE NEGATIVE Ethyl Alcohol Level LESS THAN 3 MG/DL (0-5) Test 01/08/18 05:45 01/08/18 08:53 01/08/18 15:13 01/08/18 19:50 Blood Gas Puncture Site RT RADIAL Blood Gas Patient Temperature 98.6 Blood Gas HCO3 22 mmol/L (22-26) Blood Gas Base Excess -1.1 mmol/L (-2-2) Blood Gas Oxygen Saturation 94 % (90-100) Arterial Blood pH 7.47 (7.380-7.420) Arterial Blood Partial Pressure CO2 31 mmHg (38-42) Arterial Blood Partial Pressure O2 83 mmHg (61-120) Arterial Blood Oxygen Content 15.2 Vol % (12.0-20.0) Arterial Blood Carboxyhemoglobin 1.7 % (0-4) Arterial Blood Methemoglobin 0.3 % (0-2) Blood Gas Hemoglobin 11.4 G/DL (12.0-16.0) Oxygen Delivery Device NASAL CANNULA Blood Gas Liter Flow 2 L/M White Blood Count 17.5 TH/MM3 (4.0-11.0) Red Blood Count 3.13 MIL/MM3 (4.50-5.90) Hemoglobin 11.8 GM/DL (13.0-17.0) Hematocrit 33.8 % (39.0-51.0) Mean Corpuscular Volume 108.2 FL (80.0-100.0) Mean Corpuscular Hemoglobin 37.7 PG (27.0-34.0) Mean Corpuscular Hemoglobin Concent 34.8 % (32.0-36.0) Red Cell Distribution Width 16.6 % (11.6-17.2) Platelet Count 49 TH/MM3 (150-450) Mean Platelet Volume 9.4 FL (7.0-11.0) Neutrophils (%) (Auto) 94.4 % (16.0-70.0) Lymphocytes (%) (Auto) 1.9 % (9.0-44.0) Monocytes (%) (Auto) 3.6 % (0.0-8.0) Eosinophils (%) (Auto) 0.0 % (0.0-4.0) Basophils (%) (Auto) 0.1 % (0.0-2.0) Neutrophils # (Auto) 16.5 TH/MM3 (1.8-7.7) Lymphocytes # (Auto) 0.3 TH/MM3 (1.0-4.8) Monocytes # (Auto) 0.6 TH/MM3 (0-0.9) Eosinophils # (Auto) 0.0 TH/MM3 (0-0.4) Basophils # (Auto) 0.0 TH/MM3 (0-0.2) CBC Comment AUTO DIFF Differential Total Cells Counted 100 Neutrophils % (Manual) 77 % (16-70) Band Neutrophils % 19 % (0-6) Lymphocytes % 1 % (9-44) Monocytes % 3 % (0-8) Neutrophils # (Manual) 16.8 TH/MM3 (1.8-7.7) Differential Comment FINAL DIFF MANUAL Toxic Granulation 1+ (NORMAL) Toxic Vacuolation PRESENT (NONE SEEN) Platelet Estimate LOW (NORMAL) Platelet Morphology Comment NORMAL (NORMAL) Target Cells 1+ (NORMAL) Acanthocytes OCC (NORMAL) Prothrombin Time 32.8 SEC (9.8-11.6) Prothromb Time International Ratio 3.3 RATIO Fibrinogen 187 mg/dL (227-377) Blood Urea Nitrogen 27 MG/DL (7-18) Creatinine 1.39 MG/DL (0.60-1.30) Random Glucose 99 MG/DL (74-106) Total Protein 6.5 GM/DL (6.4-8.2) Albumin 2.8 GM/DL (3.4-5.0) Calcium Level 8.1 MG/DL (8.5-10.1) Phosphorus Level 0.4 MG/DL (2.5-4.9) 0.9 MG/DL (2.5-4.9) Magnesium Level 1.6 MG/DL (1.5-2.5) Alkaline Phosphatase 93 U/L (45-117) Aspartate Amino Transf (AST/SGOT) 83 U/L (15-37) Alanine Aminotransferase (ALT/SGPT) 70 U/L (12-78) Total Bilirubin 25.7 MG/DL (0.2-1.0) Sodium Level 158 MEQ/L (136-145) 160 MEQ/L (136-145) 160 MEQ/L (136-145) Potassium Level 2.2 MEQ/L (3.5-5.1) 1.9 MEQ/L (3.5-5.1) Chloride Level 125 MEQ/L (98-107) Carbon Dioxide Level 23.2 MEQ/L (21.0-32.0) Anion Gap 10 MEQ/L (5-15) Estimat Glomerular Filtration Rate 52 ML/MIN (>89) Lactic Acid Level 3.2 mmol/L (0.4-2.0) Ammonia 32 MCMOL/L (11-32) Test 01/09/18 05:59 01/09/18 08:15 01/09/18 10:50 01/09/18 13:51 White Blood Count 20.5 TH/MM3 (4.0-11.0) Red Blood Count 3.40 MIL/MM3 (4.50-5.90) Hemoglobin 12.6 GM/DL (13.0-17.0) Hematocrit 36.6 % (39.0-51.0) Mean Corpuscular Volume 107.8 FL (80.0-100.0) Mean Corpuscular Hemoglobin 37.0 PG (27.0-34.0) Mean Corpuscular Hemoglobin Concent 34.3 % (32.0-36.0) Red Cell Distribution Width 17.2 % (11.6-17.2) Platelet Count 45 TH/MM3 (150-450) Mean Platelet Volume 11.2 FL (7.0-11.0) Neutrophils (%) (Auto) 94.2 % (16.0-70.0) Lymphocytes (%) (Auto) 1.8 % (9.0-44.0) Monocytes (%) (Auto) 3.8 % (0.0-8.0) Eosinophils (%) (Auto) 0.0 % (0.0-4.0) Basophils (%) (Auto) 0.2 % (0.0-2.0) Neutrophils # (Auto) 19.3 TH/MM3 (1.8-7.7) Lymphocytes # (Auto) 0.4 TH/MM3 (1.0-4.8) Monocytes # (Auto) 0.8 TH/MM3 (0-0.9) Eosinophils # (Auto) 0.0 TH/MM3 (0-0.4) Basophils # (Auto) 0.0 TH/MM3 (0-0.2) CBC Comment AUTO DIFF Differential Total Cells Counted 100 Neutrophils % (Manual) 68 % (16-70) Band Neutrophils % 20 % (0-6) Lymphocytes % 6 % (9-44) Monocytes % 5 % (0-8) Neutrophils # (Manual) 18.2 TH/MM3 (1.8-7.7) Metamyelocytes 1 % (0-1) Differential Comment FINAL DIFF MANUAL Toxic Granulation 1+ (NORMAL) Platelet Estimate LOW (NORMAL) Platelet Morphology Comment ENLARGED (NORMAL) Target Cells 1+ (NORMAL) Acanthocytes 1+ (NORMAL) Prothrombin Time 31.9 SEC (9.8-11.6) Prothromb Time International Ratio 3.2 RATIO Fibrinogen 185 mg/dL (227-377) Blood Urea Nitrogen 30 MG/DL (7-18) Creatinine 1.39 MG/DL (0.60-1.30) Random Glucose 150 MG/DL (74-106) Calcium Level 7.6 MG/DL (8.5-10.1) Phosphorus Level 2.4 MG/DL (2.5-4.9) Magnesium Level 1.8 MG/DL (1.5-2.5) Sodium Level 158 MEQ/L (136-145) 158 MEQ/L (136-145) 160 MEQ/L (136-145) Potassium Level 2.4 MEQ/L (3.5-5.1) Chloride Level 124 MEQ/L (98-107) Carbon Dioxide Level 24.0 MEQ/L (21.0-32.0) Anion Gap 10 MEQ/L (5-15) Estimat Glomerular Filtration Rate 52 ML/MIN (>89) Ammonia 35 MCMOL/L (11-32) Urine Eosinophils NONE SEEN /HPF (NONE SEEN) Test 01/09/18 19:41 01/10/18 03:46 01/10/18 06:18 Sodium Level 159 MEQ/L (136-145) 160 MEQ/L (136-145) Potassium Level 2.4 MEQ/L (3.5-5.1) 3.0 MEQ/L (3.5-5.1) White Blood Count 24.3 TH/MM3 (4.0-11.0) Red Blood Count 3.51 MIL/MM3 (4.50-5.90) Hemoglobin 13.1 GM/DL (13.0-17.0) Hematocrit 37.9 % (39.0-51.0) Mean Corpuscular Volume 108.2 FL (80.0-100.0) Mean Corpuscular Hemoglobin 37.3 PG (27.0-34.0) Mean Corpuscular Hemoglobin Concent 34.5 % (32.0-36.0) Red Cell Distribution Width 17.6 % (11.6-17.2) Platelet Count 35 TH/MM3 (150-450) Mean Platelet Volume 10.4 FL (7.0-11.0) Neutrophils (%) (Auto) 94.0 % (16.0-70.0) Lymphocytes (%) (Auto) 1.0 % (9.0-44.0) Monocytes (%) (Auto) 4.8 % (0.0-8.0) Eosinophils (%) (Auto) 0.0 % (0.0-4.0) Basophils (%) (Auto) 0.2 % (0.0-2.0) Neutrophils # (Auto) 22.8 TH/MM3 (1.8-7.7) Lymphocytes # (Auto) 0.2 TH/MM3 (1.0-4.8) Monocytes # (Auto) 1.2 TH/MM3 (0-0.9) Eosinophils # (Auto) 0.0 TH/MM3 (0-0.4) Basophils # (Auto) 0.1 TH/MM3 (0-0.2) CBC Comment AUTO DIFF Blood Urea Nitrogen 32 MG/DL (7-18) Creatinine 1.43 MG/DL (0.60-1.30) Random Glucose 159 MG/DL (74-106) Total Protein 6.4 GM/DL (6.4-8.2) Albumin 2.4 GM/DL (3.4-5.0) Calcium Level 7.7 MG/DL (8.5-10.1) Phosphorus Level 1.0 MG/DL (2.5-4.9) Magnesium Level 1.6 MG/DL (1.5-2.5) Alkaline Phosphatase 169 U/L (45-117) Aspartate Amino Transf (AST/SGOT) 87 U/L (15-37) Alanine Aminotransferase (ALT/SGPT) 88 U/L (12-78) Total Bilirubin 26.8 MG/DL (0.2-1.0) Chloride Level 127 MEQ/L (98-107) Carbon Dioxide Level 20.4 MEQ/L (21.0-32.0) Anion Gap 13 MEQ/L (5-15) Estimat Glomerular Filtration Rate 51 ML/MIN (>89) Blood Gas Puncture Site LT RADIAL Blood Gas Patient Temperature 98.6 Blood Gas HCO3 19 mmol/L (22-26) Blood Gas Base Excess -4.6 mmol/L (-2-2) Blood Gas Oxygen Saturation 91 % (90-100) Arterial Blood pH 7.43 (7.380-7.420) Arterial Blood Partial Pressure CO2 29 mmHg (38-42) Arterial Blood Partial Pressure O2 69 mmHg (61-120) Arterial Blood Oxygen Content 17.3 Vol % (12.0-20.0) Arterial Blood Carboxyhemoglobin 1.6 % (0-4) Arterial Blood Methemoglobin 0.5 % (0-2) Blood Gas Hemoglobin 13.5 G/DL (12.0-16.0) Oxygen Delivery Device MASK Blood Gas Liter Flow 10 L/M . Result Diagram: 01/10/18 0346 01/10/18 0346 Microbiology Microbiology Date/Time Source Procedure Growth Status 01/07/18 14:00 Stool Stool Stool Occult Blood ([facility]) - Final HEMOCCULT POSITIVE Complete 01/09/18 08:15 Urine Catheterized Urine Urine Culture Pending Received Imaging Last Impressions Chest X-Ray 01/10/18 0000 Signed Impressions: Service Date/Time: Wednesday, January 10, 2018 04:04 - CONCLUSION: Unchanged bilateral patchy infiltrates. Ricky Gómez Jr., MD Abdomen/Pelvis CT 01/07/18 0000 Signed Impressions: Service Date/Time: Sunday, January 07, 2018 22:30 - CONCLUSION: 1. Increased fluid, with interval development of moderate amount of free fluid in the pelvis. 2. Interval development of intermediate opacity within the gallbladder lumen suggesting sludge. Ricky Milan MD Abdomen X-Ray 01/04/18 0000 Signed Impressions: Service Date/Time: Thursday, January 04, 2018 09:46 - CONCLUSION: 1. Suction type nasoenteric catheter tip in the distal stomach near the duodenal bulb. Stiven Mathis MD Head CT 01/03/18 1437 Signed Impressions: Service Date/Time: Wednesday, January 03, 2018 15:17 - CONCLUSION: Negative for an acute process. Sid Chilel MD FACR Shoulder X-Ray 01/03/18 0000 Signed Impressions: Service Date/Time: Wednesday, January 03, 2018 15:00 - CONCLUSION: Degenerative changes of the a.c. joint. No acute abnormality. Ricky Gómez Jr., MD Assessment and Plan Disease Oriented Problem List: (1) Elevated liver function tests (2) Lactic acidosis (3) Acute kidney injury (4) Coagulopathy (5) Hyperammonemia (6) History of ETOH abuse Symptom Scale: (1) Altered mental status 0-10 Scale: Unable to quantify Comment: History of liver cirrhosis. Lactic acidosis, hyper ammonia. . (2) Agitation Comment: . (3) Debility 0-10 Scale: Unable to quantify Comment: Progressive . Pertinent Non-Medical Issues Psychosocial: Patient was born and raised in [facility]. Patient was once and once. He has no background. 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 Patient usually spends 6 months in [place] in 6 months in [place]. Patient he has 3 adult daughters who live in [place]. Spiritual: Patient is Faith Legal: Patient's sister Lea Le stating that she is power of textiles sales representative- pending bringing in copies for verification. Documents unable to be located. Family is cooperating as a whole in making decisions. Ethical issues impacting care: None identified at this time . Important Contacts [id number]-Hkwt Daughter- Rachel, Mimi Daughter-Ivana Rios Sister- Lea Le-[phone] Brother- Gerardo Le- [phone] . Prognosis Mr. 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 Patient was brought in by [facility] on 01/03/18 as a Young act for evaluation for altered mental status and on arrival to the ER patient was complaining of left shoulder pain. Clinical course complicated with encephalopathy, coagulopathy, and hyperammonemia. Given ongoing comorbidities, patient remains at very high risk for further complications, deterioration and decline. . Code Status: No Code Plan PLAN: Legal decision maker: Patient is currently unable to participate in medical decision making. According to [place] Statute, patient`s adult daughters Charla Ramos and Ivana Rios will serve as patient`s health care proxys. At this time all including family members, daughters, siblings, mother and ex- are cooperating and choosing comfort care only. Goals: Comfort oriented CODE STATUS: DNR SYMPTOMS: * Pain: History of knee pain and liver cirrhosis. Patient in the process of actively dying. Morphine initiated for end-of-life comfort. * Dyspnea: Tachypneic, agonal breathing during the dying process, Ativan initiated for end-of-life comfort. Palliative care will continue to follow the patient during hospital course as condition evolves, to assist patient/decision-maker with understanding of their medical conditions, weighing benefits/burdens of treatment options, for clarification of goals of treatment. Additionally will assist with any symptoms of palliative concern. . Attestation Prothrombin time 31.9, INR 3.2, fibrinogen 185. To help prompt me to consider important information that might be impacting today's encounter and assessment, information from prior notes written by myself or my colleagues may have been "brought forward" into today's note. My signature on this note, however, is an attestation that I personally performed the exam, history, and/or decision- making noted today, and, unless otherwise indicated, the interactions with patient, family, and staff as well as the review of records all occurred today. I also attest that the listed assessment and stated plan reflect my best clinical judgment today based on the combination of historical information, prior notes, and today's exam/ interactions. When time spent is documented, it refers only to time spent today by the signer, or if indicated, combined time spent today by collaborating physician/nurse practitioner. . Sarah Mendez Jan 10, 2018 9:51 am
[2018-01-10] MEDS ORDERED: MORPHINE SULFATE 4 MG/ML INJ IV PUSH PRN (10:00)
[2018-01-10] MEDS ORDERED: LORazepam 2 MG/ML VIAL IV PUSH PRN ×2 (10:00)
[2018-01-10] MEDS: MORPHINE SULFATE 8 MG/ML INJ IV PUSH PRN ×5 (10:06→15:24)
[2018-01-10] MEDS: LORazepam 2 MG/ML VIAL IV PUSH PRN ×3 (10:06→14:52)
[2018-01-10] MEDS: CEFEPIME INJ 2,000 MG in SODIUM CHLORIDE 0.9% INJ 100 ML IV SCH (10:15)
[2018-01-10] MEDS: DEXTROSE 5% IN WATE 1000ML INJ 1,000 ML IV SCH (10:15)
[2018-01-10] MEDS: VANCOMYCIN INJ 1,500 MG in SODIUM CHLORID 0.9% 500 ML INJ 500 ML IV SCH (11:34)
[2018-01-10] MEDS ORDERED: PHARMACY ORDERED LAB ONE (11:45)
[2018-01-10] MEDS ORDERED: MORPHINE SULFATE 4 MG/ML INJ IV PUSH SCH (12:00)
[2018-01-10] MEDS ORDERED: LORazepam 2 MG/ML VIAL IV PUSH SCH ×2 (12:00→16:00)
--- NOTE | 2018-01-10 14:03 | HHI.CCPN ---
Subjective Remarks/Hospital Course This is a 57-year-old male. Date of admission 01/03/2018. Past medical history includes end-stage liver disease secondary to alcohol. Patient ceased drinking tobacco December 20. Patient ceased smoking tobacco . He drank half a gallon of whiskey daily for an unspecified amount of time according to brother Gerardo and sister Lea. Patient was recently to [facility] with a total bilirubin 29 and elevated ammonia 170. At that time a CAT scan of the abdomen pelvis revealed ascites and cholelithiasis without cholecystitis. Patient was recently discharged from [facility] Today, patient was brought in under [facility] due to altered mental status and refusing to be transferred to the hospital. At this facility, patient noted to have lactic acidosis 5. Potassium 2.7, total bilirubin of 30 elevated transaminases. INR is currently 2.9. CBC is currently pending. X-ray of chest and shoulder revealed no acute findings. CT brain revealed no acute intracranial findings. Patient received 40 mEq potassium chloride for potassium 2.7. Patient received ampicillin, vancomycin and ceftriaxone for possible meningitis. A lumbar puncture was attempted by the ED physician unsuccessfully. We are asked to admit the patient. There is no repeat lactate was 5.2. Repeat ammonia level after initial is less than 10 is currently 81. Started on lactulose 30 cc 4 times daily and rifaximin 550 mg p.o. twice daily Subjective: 3: Afebrile . Patient remains on sedation with Precedex infusion. Coagulopathy labs pending this a.m. status post transfusion. Noted IV infiltration last evening in the ED left arm significantly edematous. 01/05: Sedation minimized ,patient aggressive/ combative thrashing wildly completely disoriented and not responding to any commands. Ammonia continues to be elevated 144. 01/06: Sedation discontinued. Patient remains encephalopathic. Ammonia level continues to increase, despite rifaximin and lactulose. Otitis panel revealed return notable for hepatitis C. Patient continues to be coagulopathic, INR 4.1, Fibrinogen 163, platelet count 26 this a.m.. FFP, vitamin K ,cryoprecipitate and platelets being transfused. Hematology has been consulted. GI has been consulted. 01/07: Patient has been off sedation for greater than 24 hours, remains encephalopathic. Ammonia level trending down. INR continues to be elevated, patient to receive 5 mg of vitamin K. Extensive discussion with family regarding the patient's condition, and poor prognosis. Palliative care is following. 01/08: The patient remains encephalopathic. Ammonia level trending down patient continues on lactulose 4 times a day. Plan for repeat CT brain in a.m. Tube feeds initiated Jevity 1.5 at 65 cc/hour. Patient notably having more spontaneous movement today , not following commands. Sodium level noted to be elevated, albumin placed on hold sodium labs initiated every 6 hours. D5W infusion initiated. Patient's children to arrive at 8 PM tonight, tentative plan to have a family conference in a.m.. 01/09: The patient remains encephalopathic. No neurological changes . CT brain pending .Ammonia level slightly increased despite lactulose 4 times a day. Repeat EEG scheduled in the a.m. Hemodynamically stable. Family conference convene this a.m. with the patient's children, and brother. Provided update in medical status. Discussion regarding possibility of hospice, family is deciding. Plan for palliative care team meeting in a.m.. Family (3 daughters) has decided to make patient DNR,code status changed. 01/10 Patient remains encephalopathic, non verbal. Patient is now comfort measures only per palliative care. Objective Vital Signs Date Time Temp Pulse Resp B/P (MAP) Pulse Ox O2 Delivery O2 Flow Rate FiO2 01/10/18 13:05 16 01/10/18 11:33 95 Simple Mask 10.00 01/10/18 06:00 116 01/10/18 04:00 98.7 145/97 (113) Intake and Output 01/10/18 01/10/18 01/11/18 08:00 16:00 00:00 Intake Total 2916.2 ml Output Total 2200 ml Balance 716.2 ml Result Diagram: 01/10/18 0346 01/10/18 0346 Other Results Laboratory Tests Test 01/09/18 13:51 01/09/18 19:41 01/10/18 03:46 01/10/18 06:18 Sodium Level 160 MEQ/L 159 MEQ/L 160 MEQ/L Potassium Level 2.4 MEQ/L 3.0 MEQ/L White Blood Count 24.3 TH/MM3 Red Blood Count 3.51 MIL/MM3 Hemoglobin 13.1 GM/DL Hematocrit 37.9 % Mean Corpuscular Volume 108.2 FL Mean Corpuscular Hemoglobin 37.3 PG Mean Corpuscular Hemoglobin Concent 34.5 % Red Cell Distribution Width 17.6 % Platelet Count 35 TH/MM3 Mean Platelet Volume 10.4 FL Neutrophils (%) (Auto) 94.0 % Lymphocytes (%) (Auto) 1.0 % Monocytes (%) (Auto) 4.8 % Eosinophils (%) (Auto) 0.0 % Basophils (%) (Auto) 0.2 % Neutrophils # (Auto) 22.8 TH/MM3 Lymphocytes # (Auto) 0.2 TH/MM3 Monocytes # (Auto) 1.2 TH/MM3 Eosinophils # (Auto) 0.0 TH/MM3 Basophils # (Auto) 0.1 TH/MM3 CBC Comment AUTO DIFF Differential Total Cells Counted 100 Neutrophils % (Manual) 92 % Band Neutrophils % 4 % Lymphocytes % 1 % Monocytes % 1 % Neutrophils # (Manual) 23.8 TH/MM3 Metamyelocytes 2 % Differential Comment FINAL DIFF MANUAL Platelet Estimate LOW Platelet Morphology Comment ENLARGED Blood Urea Nitrogen 32 MG/DL Creatinine 1.43 MG/DL Random Glucose 159 MG/DL Total Protein 6.4 GM/DL Albumin 2.4 GM/DL Calcium Level 7.7 MG/DL Phosphorus Level 1.0 MG/DL Magnesium Level 1.6 MG/DL Alkaline Phosphatase 169 U/L Aspartate Amino Transf (AST/SGOT) 87 U/L Alanine Aminotransferase (ALT/SGPT) 88 U/L Total Bilirubin 26.8 MG/DL Chloride Level 127 MEQ/L Carbon Dioxide Level 20.4 MEQ/L Anion Gap 13 MEQ/L Estimat Glomerular Filtration Rate 51 ML/MIN Blood Gas Puncture Site LT RADIAL Blood Gas Patient Temperature 98.6 Blood Gas HCO3 19 mmol/L Blood Gas Base Excess -4.6 mmol/L Blood Gas Oxygen Saturation 91 % Arterial Blood pH 7.43 Arterial Blood Partial Pressure CO2 29 mmHg Arterial Blood Partial Pressure O2 69 mmHg Arterial Blood Oxygen Content 17.3 Vol % Arterial Blood Carboxyhemoglobin 1.6 % Arterial Blood Methemoglobin 0.5 % Blood Gas Hemoglobin 13.5 G/DL Oxygen Delivery Device MASK Blood Gas Liter Flow 10 L/M Imaging Last Impressions Chest X-Ray 01/10/18 0000 Signed Impressions: Service Date/Time: Wednesday, January 10, 2018 04:04 - CONCLUSION: Unchanged bilateral patchy infiltrates. Ricky Gómez Jr., MD Abdomen/Pelvis CT 01/07/18 0000 Signed Impressions: Service Date/Time: Sunday, January 07, 2018 22:30 - CONCLUSION: 1. Increased fluid, with interval development of moderate amount of free fluid in the pelvis. 2. Interval development of intermediate opacity within the gallbladder lumen suggesting sludge. Ricky Milan MD Abdomen X-Ray 01/04/18 0000 Signed Impressions: Service Date/Time: Thursday, January 04, 2018 09:46 - CONCLUSION: 1. Suction type nasoenteric catheter tip in the distal stomach near the duodenal bulb. Stiven Mathis MD Head CT 01/03/18 1437 Signed Impressions: Service Date/Time: Wednesday, January 03, 2018 15:17 - CONCLUSION: Negative for an acute process. Sid Chilel MD FACR Shoulder X-Ray 01/03/18 0000 Signed Impressions: Service Date/Time: Wednesday, January 03, 2018 15:00 - CONCLUSION: Degenerative changes of the a.c. joint. No acute abnormality. Ricky Gómez Jr., MD Objective Remarks GENERAL: 57-year-old male encephalopathic and non verbal. SKIN: Warm and dry. Jaundice HEAD: Atraumatic. Normocephalic. EYES: Pupils equal and round. + scleral icterus. No injection or drainage. ENT: No nasal bleeding or discharge. Mucous membranes pink and moist. Edentulous NECK: Trachea midline. No JVD. CARDIOVASCULAR: Tachycardic, S1, S2. No S4 without murmur RESPIRATORY: Diminished breath sounds throughout. Few coarse BS GASTROINTESTINAL: Abdomen mildly distended. Hypoactive bowel sounds appreciated. MUSCULOSKELETAL: Extremities without clubbing, cyanosis, or edema. No obvious deformities. NEUROLOGICAL: Unresponsive A/P Assessment and Plan Neuro/Psych: Acute encephalopathy History of EtOH use/abuse THC use On Ativan and Morphine for comfort measures CT brain on admission revealed no acute intracranial findings On lactulose and rifaximin Seizure Precautions CV: Lactic acidosis Monitor HR and BP keep MAP>65mmHg Currently on D5W at 84 cc an hour Resp: Tobaccoism Nasal cannula to maintain saturations greater than or equal to 92% Bronchodilators 01/08 Chest x-ray - bilateral airspace disease left greater than right GI: Elevated total bilirubin Elevated transaminases Hypoalbuminemia Cholelithiasis History of esophageal varices? Hyperammonia Alcoholic hepatitis Hepatitis C ESLD Continue lactulose 30 cc 4 times daily and rifaximin 550 mg p.o. twice daily /6 CT abdomen/pelvis Localized ascites about the liver without tracking into the abdomen or pelvis. Dilation of the common bile duct up to 11 mm without calcified gallstones or calcifications in the common bile duct. The gallbladder appears mildly distended. Mild induration of the mesenteric fat in the right upper quadrant. MELD score 39 GI is following, NGT d/c ed : NINFA Monitor renal function, electrolytes replacement as needed Endo: Sliding scale insulin if indicated to maintain euglycemia/low regimen with Novulin R TSH 0.53 Heme: Coagulopathy likely secondary to end-stage liver disease Repeat CBC pending post transfusions Heme consulted ID: Recent urinary tract infection Bandemia On Vancomycin, cefepime and metronidazole UA here is negative MSK: PT evaluate and treat Access Utilized peripheral IV. Prophylaxis GI -pantoprazole DVT -SCD/pharmacological prophylaxis is contraindicated with INR greater than 2.0 Palliative care is following. Code status: No code DNR. Will transfer service to palliative care. Jackie Guzmán MD Jan 10, 2018 14:03
== END 2018-01-10 16:14 | disposition expired | DRG 432 ==
LOC: NEPC 14:25 → NEDA 18:19 → HIMW 20:35
PROVIDERS: ADMIT Family Medicine Hospice and Palliative Medicine; ATTEND Family Medicine Hospice and Palliative Medicine
PROC: 00JU3ZZ Inspection of Spinal Canal, Percutaneous Approach (ICD-10-PCS; principal; 2018-01-03)
PROC: 30233K1 Transfusion of Nonautologous Frozen Plasma into Peripheral Vein, Percutaneous Approach (ICD-10-PCS; 2018-01-03)
PROC: 6A550Z2 Pheresis of Platelets, Single (ICD-10-PCS; 2018-01-06)
DX: K70.40 Alcoholic hepatic failure without coma (principal); K65.2 Spontaneous bacterial peritonitis; N17.9 Acute kidney failure, unspecified; E87.0 Hyperosmolality and hypernatremia; D68.4 Acquired coagulation factor deficiency; E87.2 Acidosis; D69.59 Other secondary thrombocytopenia; E46 Unspecified protein-calorie malnutrition; E87.1 Hypo-osmolality and hyponatremia; G25.9 Extrapyramidal and movement disorder, unspecified; G31.2 Degeneration of nervous system due to alcohol; F10.21 Alcohol dependence, in remission; E87.6 Hypokalemia; K70.31 Alcoholic cirrhosis of liver with ascites; K70.11 Alcoholic hepatitis with ascites; Z96.651 Presence of right artificial knee joint; Z88.6 Allergy status to analgesic agent; Z78.1 Physical restraint status; Z80.1 Family history of malignant neoplasm of trachea, bronchus and lung; Z82.49 Family history of ischemic heart disease and other diseases of the circulatory system; Z87.891 Personal history of nicotine dependence; M25.512 Pain in left shoulder; B19.20 Unspecified viral hepatitis C without hepatic coma; Z51.5 Encounter for palliative care; F12.10 Cannabis abuse, uncomplicated; D53.9 Nutritional anemia, unspecified; Z66 Do not resuscitate; R19.7 Diarrhea, unspecified
CPT/HCPCS: 36430; 36600; 62270; 70450; 71045; 73030; 74018; 74176; 76937; 80048; 80053; 80074; 80202; 80307; 81001; 82140; 82248; 82272; 82533; 82550; 82570; 82805; 82948; 83010; 83605; 83615; 83735; 83880; 84100; 84132; 84155; 84295; 84300; 84443; 84484; 85007; 85025; 85027; 85384; 85610; 85730; 86880; 86900; 86901; 86927; 86965; 87040; 87086; 87205; 87493; 87641; 93005; 94640; 94664; 94770; 95819; 96361; 96365; 96368; C9113; J0290; J0692; J0696; J1940; J2060; J2270; J2405; J2920; J3370; J3430; J3475; J3480; J7030; J7040; J7050; J7060; J7070; J7613; P9017; P9035; P9045; P9612; Q9963